=== PATIENT | male | born 1930 | race Caucasian/White ===

== ENCOUNTER → 2016-04-15 | Outpatient (CLI) | payer MEDICARE, OTHER ==
[~2016-04-15] MED LIST: ASPI32ECTA PO; ASPI81TA13 PO; CAPT125TA PO; CAPT50TA PO; CEFD300CAP PO; CIPROFLOXACIN 500 MG TAB As Ordered ONE; CLONI1TA PO; COLA100C PO; CORE3.12 PO; COUM1TAB17 PO; COUM2.5T11 PO; DOCU10CA PO; FLOM5CAP PO; HYDR-4267 PO; IMDU30TA PO; ISOS30TA4 PO; ISOVUE-300 61% 50ML VIAL (Q9967) As Ordered ONE; LABE10TAB PO; LANT50TA PO; LEVA250T PO; LIPI20TA PO; MAPA325T2 PO; MICA5TAB PO; MILKSUS PO; MIRA3350 PO; NITR4TASL SL; PANT40TA2 PO; PEG1POW PO; PERCOCET PO; PROS5TAB PO; RENV2TAB PO; SENN1TAB2 PO; SODIUM BICARBONATE 8.4% INJ 50MEQ 50 ML VIAL As Ordered ONE; no home meds
--- NOTE | 2016-04-15 16:19 | REPKIM ---
CLINICAL HISTORY: Patient with a history of high output renal failure has a left nephrostomy catheter due to hydronephrosis. Patient presents for routine catheter check and exchange for maintenance. PROCEDURE: Left nephrostomy catheter check and change INTERVENTIONALIST: Yeni Conti MD MEDICATIONS: Local Lidocaine, Cipro FLUORO TIME: 0.8 minutes CONTRAST: 8 mL Isovue 300 DEVICE USED: 10F Nephrostomy (Resolve) catheter Lot#[id number] Description of procedure: The risks, benefits, and alternatives of the procedure and associated intravenous sedation were discussed with the patient and informed written consent was obtained. The patient was brought to the interventional radiology suite where a timeout procedure was performed. The existing left indwelling catheter and the area surrounding the insertion site were prepped and draped with standard technique. Dilute contrast was injected through the existing nephrostomy catheter and a nephrostogram was performed. This showed the catheter is patent in a satisfactory course and position. A guidewire was advanced through the existing drainage catheter into the renal pelvis. The existing catheter was unlocked and removed over the guidewire. A new 10F nephrostomy catheter was then advanced over the guidewire. The guidewire was removed and the distal loop of the nephrostomy drainage catheter was formed and locked in the renal pelvis. Contrast was gently hand injected, confirming its tip in the renal pelvis. The drainage catheter exit site was covered with a sterile dressing. The nephrostomy drainage catheter was flushed and connected to a gravity drainage bag. The patient tolerated the procedure well with no immediate complications. This procedure was performed using fluoroscopy. Dr. Conti was present. IMPRESSION: Successful left nephrostomy check and change for maintenance. Plan: Routine catheter exchange in approximately 12 weeks or earlier if signs of tube dysfunction were to occur. cc: MD ANA Avila
== END | disposition home or self-care (01) ==
LOC: M IRPRO 12:46
DX: N13.30 Unspecified hydronephrosis (principal); N18.6 End stage renal disease
CPT/HCPCS: 50435; C1729; C1769; Q9967

== ENCOUNTER → 2016-04-26 | Outpatient (CLI) | payer MEDICARE, OTHER ==
[~2016-04-26] MED LIST changes: -CIPROFLOXACIN 500 MG TAB As Ordered ONE; -ISOVUE-300 61% 50ML VIAL (Q9967) As Ordered ONE; -SODIUM BICARBONATE 8.4% INJ 50MEQ 50 ML VIAL As Ordered ONE
[2016-04-26 18:28] LABS: INR 1.19
== END ==
LOC: M SMT 15:08
PROVIDERS: ATTEND Internal Medicine Nephrology
DX: Z51.81 Encounter for therapeutic drug level monitoring (principal); Z79.01 Long term (current) use of anticoagulants

== ENCOUNTER → 2016-07-03 | Outpatient (CLI) | payer MEDICARE, OTHER ==
[~2016-07-03] MED LIST changes: +CIPROFLOXACIN 500 MG TAB As Ordered ONE; -COLA100C PO; +COLA100C3 PO; +ISOVUE-300 61% 50ML VIAL (Q9967) As Ordered ONE; +LIDOCAINE 2% MDV 20 ML VIAL As Ordered ONE
--- NOTE | 2016-07-03 17:50 | REPKIM ---
CLINICAL HISTORY: Patient with high output renal failure has a left nephrostomy catheter due to hydronephrosis. Patient presents for routine catheter check and exchange for maintenance. PROCEDURE: Left nephrostomy catheter check and change INTERVENTIONALIST: Yeni Conti MD MEDICATIONS: Local Lidocaine, Cipro FLUORO TIME: 0.5 minutes CONTRAST: 10 mL Isovue 300 DEVICE USED: 10F Nephrostomy (Resolve) catheter Lot#[id number] Description of procedure: The risks, benefits, and alternatives of the procedure and associated intravenous sedation were discussed with the patient and informed written consent was obtained. The patient was brought to the interventional radiology suite where a timeout procedure was performed. The existing left indwelling catheter and the area surrounding the insertion site were prepped and draped with standard technique. Dilute contrast was injected through the existing nephrostomy catheter and a nephrostogram was performed. This showed the catheter is patent in a satisfactory course and position. A guidewire was advanced through the existing drainage catheter into the renal pelvis. The existing catheter was unlocked and removed over the guidewire. A new 10F nephrostomy catheter was then advanced over the guidewire. The guidewire was removed and the distal loop of the nephrostomy drainage catheter was formed and locked in the renal pelvis. Contrast was gently hand injected, confirming its tip in the renal pelvis. The drainage catheter exit site was covered with a sterile dressing. The nephrostomy drainage catheter was flushed and connected to a gravity drainage bag. The patient tolerated the procedure well with no immediate complications. This procedure was performed using fluoroscopy. Dr. Conti was present. IMPRESSION: Successful left nephrostomy check and change for maintenance. Plan: Routine catheter exchange in approximately 12 weeks or earlier if signs of tube dysfunction were to occur. cc: MD ANA Avila
== END | disposition home or self-care (01) ==
LOC: M IRPRO 12:33
DX: Z43.6 Encounter for attention to other artificial openings of urinary tract (principal); N13.30 Unspecified hydronephrosis; N18.6 End stage renal disease
CPT/HCPCS: 50435; C1729; C1769; Q9967

== ENCOUNTER → 2016-08-06 | Outpatient (CLI) | payer MEDICARE, OTHER ==
[~2016-08-06] MED LIST changes: -CIPROFLOXACIN 500 MG TAB As Ordered ONE; -ISOVUE-300 61% 50ML VIAL (Q9967) As Ordered ONE; -LIDOCAINE 2% MDV 20 ML VIAL As Ordered ONE
== END ==
LOC: M SMT 14:18
PROVIDERS: ATTEND Internal Medicine Nephrology
DX: J90 Pleural effusion, not elsewhere classified (principal); I50.32 Chronic diastolic (congestive) heart failure

== ENCOUNTER → 2016-10-16 | Outpatient (CLI) | payer MEDICARE, OTHER ==
[~2016-10-16] MED LIST changes: +ASPI325T24 PO; -ASPI32ECTA PO; -ASPI81TA13 PO; +ASPI81TA24 PO; +CIPROFLOXACIN 500 MG TAB As Ordered ONE; -COLA100C3 PO; +COLA100C5 PO; -COUM2.5T11 PO; +COUM2.5T17 PO; +HYDR-3911 PO; -HYDR-4267 PO; +ISOVUE-300 61% 50ML VIAL (Q9967) As Ordered ONE; +LEVA1TAB PO; -LEVA250T PO; +LIDOCAINE 2% MDV 20 ML VIAL As Ordered ONE
--- NOTE | 2016-10-16 17:09 | REP ---
The procedure was performed under the direct supervision of Dr. Chaudhari CLINICAL HISTORY: ESRD Left hydronephrosis PROCEDURE: Left Nephrostomy catheter exchange Medications: 250 mg Cipro P.O. EBL: Less than 1 ml FLUORO TIME: 1.1 minutesCONTRAST: 10 ml Isovue 300DEVICE USED: 10 F Nephrostomy (Resolve) catheter Lot# [id number] The risks and benefits of the procedure were explained to the patient and informed consent was obtained. The patient was brought into the interventional radiology suite. A time out procedure was performed. The patient was placed in the prone position. The existing indwelling catheter and the area surrounding the insertion site were prepped and draped in a sterile fashion. Contrast was injected through the existing left Nephrostomy catheter. Images demonstrate the catheter to have pulled back into the calyx. The existing catheter was cut and removed over the guide wire. A new 10 F Resolve catheter was advanced over the guide wire. The guidewire was removed and the distal loop of the nephrostomy drainage catheter was formed and locked in the renal pelvis. Contrast was injected, confirming satisfactory drainage catheter positioned. The drainage catheter exit site was covered with sterile dressing. The nephrostomy drainage catheter was flushed and connected to gravity drainage bag. The patient tolerated the procedure well and there were no immediate complications. This procedure was performed using fluoroscopy. Impression: Successful exchange of nephrostomy urinary diversion tube left As discussed above. Plan: Routine catheter exchange and approximately 8-10 weeks or earlier if signs of tube dysfunction were to occur. Reviewed by ANGIE Garrison 10/16/2016 04:21 PSigned by Bharathi Chaudhari MD 10/16/2016 05:01 P
== END ==
LOC: M RADPRO 12:35
PROVIDERS: ATTEND Radiology Diagnostic Radiology
DX: N13.30 Unspecified hydronephrosis (principal); C61 Malignant neoplasm of prostate; N18.6 End stage renal disease; Z93.6 Other artificial openings of urinary tract status; Z99.2 Dependence on renal dialysis; Z88.0 Allergy status to penicillin; Z79.01 Long term (current) use of anticoagulants; Z79.899 Other long term (current) drug therapy
CPT/HCPCS: 50435; 75984; C1729; C1769; Q9967

== ENCOUNTER → 2016-12-25 | Outpatient (CLI) | payer MEDICARE, OTHER ==
[~2016-12-25] MED LIST changes: -LIDOCAINE 2% MDV 20 ML VIAL As Ordered ONE
--- NOTE | 2016-12-27 13:25 | REP ---
The procedure was performed under the direct supervision of Dr. Chaudhari CLINICAL HISTORY: ESRD, HYDRONEPHROSIS PROCEDURE: Left nephrostomy catheter exchange Medications: Cipro 250 mg P.O. EBL: 0 FLUORO TIME: 0.8 minutesCONTRAST: 10 ml Isovue 300DEVICE USED: 10 F Nephrostomy (Resolve) catheter The risks and benefits of the procedure were explained to the patient and informed consent was obtained. The patient was brought into the interventional radiology suite. A time out procedure was performed. The patient was placed in the prone position. The existing indwelling catheter and the area surrounding the insertion site were prepped and draped in a sterile fashion. Contrast was injected through the existing left Nephrostomy catheter. Images demonstrate the catheter to be within the renal pelvis. The existing catheter was cut and removed over the guide wire. A new 10-[place] Resolve catheter was advanced over the guide wire. The guidewire was removed and the distal loop of the nephrostomy drainage catheter was formed and locked in the renal pelvis. Contrast was injected, confirming satisfactory drainage catheter position. The drainage catheter exit site was covered with sterile dressing. The nephrostomy drainage catheter was flushed and connected to gravity drainage bag. The patient tolerated the procedure well and there were no immediate complications. This procedure was performed using fluoroscopy. Impression: Successful exchange of nephrostomy urinary diversion tube left side As discussed above. Plan: Routine catheter exchange and approximately 10-12 weeks or earlier if signs of tube dysfunction were to occur. Reviewed by ANGIE Garrison 12/26/2016 05:44 PSigned by Bharathi Chaudhari MD 12/27/2016 01:16 P
== END ==
LOC: M RADPRO 12:45
PROVIDERS: ATTEND Radiology Diagnostic Radiology
DX: N18.6 End stage renal disease (principal); N13.30 Unspecified hydronephrosis; Z85.46 Personal history of malignant neoplasm of prostate; Z88.0 Allergy status to penicillin; Z99.2 Dependence on renal dialysis; Z79.899 Other long term (current) drug therapy; Z79.01 Long term (current) use of anticoagulants
CPT/HCPCS: 50435; C1729; C1769; Q9967

== ENCOUNTER → 2017-03-05 | Outpatient (CLI) | payer MEDICARE, OTHER ==
[~2017-03-05] MED LIST changes: -ASPI325T24 PO; -ASPI81TA24 PO; -CAPT125TA PO; -CAPT50TA PO; -CEFD300CAP PO; +CIPROFLOXACIN 500 MG TAB As Ordered; -CIPROFLOXACIN 500 MG TAB As Ordered ONE; -CLONI1TA PO; -COLA100C5 PO; -CORE3.12 PO; -COUM1TAB17 PO; -COUM2.5T17 PO; -DOCU10CA PO; -FLOM5CAP PO; -HYDR-3911 PO; -IMDU30TA PO; -ISOS30TA4 PO; +ISOVUE-300 61% 50ML VIAL (Q9967) As Ordered; -ISOVUE-300 61% 50ML VIAL (Q9967) As Ordered ONE; -LABE10TAB PO; -LANT50TA PO; -LEVA1TAB PO; +LIDOCAINE 2% MDV 20 ML VIAL As Ordered; -LIPI20TA PO; -MAPA325T2 PO; -MICA5TAB PO; -MILKSUS PO; -MIRA3350 PO; -NITR4TASL SL; -PANT40TA2 PO; -PEG1POW PO; -PERCOCET PO; -PROS5TAB PO; -RENV2TAB PO; -SENN1TAB2 PO; -no home meds
== END ==
LOC: M RADPRO 12:23
DX: N18.6 End stage renal disease (principal); N13.39 Other hydronephrosis
CPT/HCPCS: 50435

== ENCOUNTER 2017-05-21 14:50 | Inpatient (IN) | payer MEDICARE, OTHER ==
[~2017-05-21 14:50] MED LIST changes: +ALBUTEROL SULFATE 2.5 MG/0.5 ML INH NEB SOLN NEB; +BISACODYL 10 MG SUPP PR; +BISACODYL 5 MG TAB PO; -CIPROFLOXACIN 500 MG TAB As Ordered; -ISOVUE-300 61% 50ML VIAL (Q9967) As Ordered; -LIDOCAINE 2% MDV 20 ML VIAL As Ordered; +MIRALAX *UNIT DOSE* 17GM PACKET PO; +ONDANSETRON 4 MG ORAL DISINTEGRATING TAB (Q0162 PER 1MG) PO; +ONDANSETRON 4MG/2ML VIAL (J2405) IV
[2017-05-21] MEDS: IPRATROPIUM 0.5MG/ALBUTEROL 2.5MG INH SOL UD 3ML (DUONEB)(J7620) NEB ×2 (16:00→21:33)
[2017-05-21] MEDS: LACTULOSE 20 GM/30 ML SYRUP UD PO (16:23)
[2017-05-21] MEDS: NEPHRO-VIT TAB (NEPHROCAPS) PO (16:23)
[2017-05-21] MEDS: **hydrALAZINE** 50 MG TAB PO (16:24)
[2017-05-21] MEDS: (RENVELA) SEVELAMER **CARBONate** 800 MG TAB PO (17:35)
[2017-05-21] MEDS: METOPROLOL TART 12.5 MG PER 1/2 TAB PO ×2 (17:35→23:44)
[2017-05-21] MEDS: METOPROLOL TART 25 MG TABLET PO ×2 (17:35→23:44)
[2017-05-21] MEDS: WARFARIN SOD 5 MG TAB PO (17:36)
[2017-05-21] MEDS: BRIMONIDINE 0.15% OPHTH SOLN 5 ML OS (21:32)
[2017-05-21] MEDS: HEPARIN SOD (PORCINE) 5000 UNITS/ML VIAL SC (21:33)
[2017-05-21] MEDS: ISOSORBIDE MON. (IMDUR) 30 MG XR TAB PO (21:33)
[2017-05-21] MEDS: SENOKOT S TAB PO (21:34)
[2017-05-21] MEDS: cloNIDine 0.1 MG TAB PO (21:35)
[2017-05-21] MEDS: amLODIPine 5 MG TAB PO (21:35)
[2017-05-21] MEDS: FINASTERIDE 5 MG TAB PO (21:35)
[2017-05-21] MEDS: ACETAMINOPHEN TAB 650MG DOSE (2X325MG) PO (23:44)
[2017-05-21] MEDS: BENZONATATE 100 MG CAP PO (23:49)
[2017-05-22] MEDS: **hydrALAZINE** 50 MG TAB PO ×3 (04:10→22:27)
[2017-05-22] MEDS: LEVOTHYROXINE 50MCG TABLET (0.05MG) PO (06:06)
[2017-05-22] MEDS: METOPROLOL TART 25 MG TABLET PO ×3 (06:07→17:28)
[2017-05-22] MEDS: METOPROLOL TART 12.5 MG PER 1/2 TAB PO ×3 (06:07→17:27)
[2017-05-22] MEDS: LACTULOSE 20 GM/30 ML SYRUP UD PO ×2 (06:57→17:40)
[2017-05-22 07:25] LABS: INR 1.78; PROTHROMBIN TIME 21.3 SECONDS (12.4-14.5)
[2017-05-22] MEDS: (RENVELA) SEVELAMER **CARBONate** 800 MG TAB PO ×3 (07:49→17:28)
[2017-05-22] MEDS: IPRATROPIUM 0.5MG/ALBUTEROL 2.5MG INH SOL UD 3ML (DUONEB)(J7620) NEB ×4 (08:00→20:28)
[2017-05-22] MEDS: amLODIPine 5 MG TAB PO ×2 (09:07→20:28)
[2017-05-22] MEDS: ASPIRIN 81 MG CHEW TABLET PO (09:07)
[2017-05-22] MEDS: ISOSORBIDE MON. (IMDUR) 30 MG XR TAB PO ×2 (09:07→20:29)
[2017-05-22] MEDS: SENOKOT S TAB PO ×2 (09:07→20:28)
[2017-05-22] MEDS: predniSONE 20 MG TAB PO (09:08)
[2017-05-22] MEDS: PANTOPRAZOLE 40MG TAB (PROTONIX) PO (09:08)
[2017-05-22] MEDS: cloNIDine 0.1 MG TAB PO ×2 (09:08→20:29)
[2017-05-22] MEDS: NEPHRO-VIT TAB (NEPHROCAPS) PO (09:08)
[2017-05-22] MEDS: TAMSULOSIN 0.4 MG CAP PO (09:08)
[2017-05-22] MEDS: BRIMONIDINE 0.15% OPHTH SOLN 5 ML OS ×2 (09:09→20:27)
[2017-05-22] MEDS: HEPARIN SOD (PORCINE) 5000 UNITS/ML VIAL SC ×2 (09:09→20:28)
[2017-05-22] MEDS ORDERED: **hydrALAZINE** 50 MG TAB PO (09:15)
[2017-05-22] MEDS: BISACODYL 10 MG SUPP PR (17:29)
[2017-05-22] MEDS: WARFARIN SOD 5 MG TAB PO (17:40)
[2017-05-22] MEDS: FINASTERIDE 5 MG TAB PO (20:28)
[2017-05-22] MEDS: guaiFENesin SYRUP 200 MG/10 ML UDC PO (20:28)
[2017-05-23] MEDS: METOPROLOL TART 12.5 MG PER 1/2 TAB PO ×5 (00:10→23:26)
[2017-05-23] MEDS: METOPROLOL TART 25 MG TABLET PO ×5 (00:11→23:26)
[2017-05-23] MEDS: ACETAMINOPHEN TAB 650MG DOSE (2X325MG) PO ×2 (00:12→05:50)
[2017-05-23] MEDS: LEVOTHYROXINE 50MCG TABLET (0.05MG) PO (05:42)
[2017-05-23] MEDS: **hydrALAZINE** 50 MG TAB PO ×3 (05:43→21:20)
[2017-05-23] MEDS ORDERED: LACTULOSE 20 GM/30 ML SYRUP UD PO (07:00)
[2017-05-23 07:14] LABS: INR 1.93; PROTHROMBIN TIME 22.7 SECONDS (12.4-14.5)
[2017-05-23] MEDS: IPRATROPIUM 0.5MG/ALBUTEROL 2.5MG INH SOL UD 3ML (DUONEB)(J7620) NEB ×4 (08:00→19:52)
[2017-05-23] MEDS: NEPHRO-VIT TAB (NEPHROCAPS) PO (08:22)
[2017-05-23] MEDS: (RENVELA) SEVELAMER **CARBONate** 800 MG TAB PO ×3 (08:22→18:01)
[2017-05-23] MEDS: ISOSORBIDE MON. (IMDUR) 30 MG XR TAB PO ×2 (08:23→21:26)
[2017-05-23] MEDS: SENOKOT S TAB PO ×2 (08:23→21:20)
[2017-05-23] MEDS: cloNIDine 0.1 MG TAB PO ×2 (08:23→21:21)
[2017-05-23] MEDS: PANTOPRAZOLE 40MG TAB (PROTONIX) PO (08:23)
[2017-05-23] MEDS: amLODIPine 5 MG TAB PO ×2 (08:23→21:19)
[2017-05-23] MEDS: HEPARIN SOD (PORCINE) 5000 UNITS/ML VIAL SC ×2 (08:24→21:19)
[2017-05-23] MEDS: ASPIRIN 81 MG CHEW TABLET PO (08:24)
[2017-05-23] MEDS: TAMSULOSIN 0.4 MG CAP PO (08:24)
[2017-05-23] MEDS: predniSONE 20 MG TAB PO (08:24)
[2017-05-23] MEDS: BRIMONIDINE 0.15% OPHTH SOLN 5 ML OS ×2 (08:25→21:22)
[2017-05-23] MEDS: SODIUM CHLORIDE NASAL 0.65% SPRAY BTL (OCEAN) ×3 (12:09→21:22)
[2017-05-23] MEDS: FLUTICASONE PROP 0.05% NASAL SPRAY 16 GM (FLONASE) ×2 (12:10→21:22)
[2017-05-23 15:17] LABS: BASO % 0.1 % (0.0-1.0); EOS % 0.1 % (0.0-3.0); HEMATOCRIT 28.2 % (42.0-52.0); HEMOGLOBIN 9.4 g/dl (13.5-17.5); IMMATURE GRANULOCYTE % 0.8 % (0-3.0); LYMPH # 0.5 10^3/uL (1.5-4.5); LYMPH % 3.7 % (24.0-44.0); MEAN CORPUSCULAR HEMOGLOBIN 32.3 pg (27.0-33.0); MEAN CORPUSCULAR HGB CONC 33.3 g/dl (32.0-36.5); MEAN CORPUSCULAR VOLUME 96.9 fl (80.0-96.0); MONO # 0.4 10^3/uL (0.0-0.8); MONO % 2.8 % (0.0-5.0); NEUTROPHILS # 12.1 10^3/uL (1.8-7.7); NEUTROPHILS % 92.5 % (36.0-66.0); PLATELET COUNT, AUTOMATED 409 10^3/uL (150-450); RED BLOOD COUNT 2.91 10^6/uL (4.30-6.10)
[2017-05-23 15:44] LABS: ALBUMIN 2.6 GM/DL (3.2-5.2); ALBUMIN/GLOBULIN RATIO 0.84 (1.00-1.93); ALKALINE PHOSPHATASE 51 U/L (45-117); ALT/SGPT 26 U/L (12-78); ANION GAP 9 MEQ/L (8-16); AST/SGOT 21 U/L (7-37); BILIRUBIN,TOTAL 0.4 MG/DL (0.2-1.0); BLOOD UREA NITROGEN 59 MG/DL (7-18); CALCIUM LEVEL 9.1 MG/DL (8.8-10.2); CARBON DIOXIDE LEVEL 26 MEQ/L (21-32); CHLORIDE LEVEL 99 MEQ/L (98-107); CREATININE FOR GFR 4.52 MG/DL (0.70-1.30); GLOMERULAR FILTRATION RATE 13.3 (>35); GLUCOSE, FASTING 139 MG/DL (70-100); POTASSIUM SERUM 4.8 MEQ/L (3.5-5.1); SODIUM LEVEL 134 MEQ/L (136-145); TOTAL PROTEIN 5.7 GM/DL (6.4-8.2)
[2017-05-23] MEDS: WARFARIN SOD 5 MG TAB PO (18:01)
[2017-05-23] MEDS: guaiFENesin SYRUP 200 MG/10 ML UDC PO (21:18)
[2017-05-23] MEDS: FINASTERIDE 5 MG TAB PO (21:20)
[2017-05-24] MEDS: **hydrALAZINE** 50 MG TAB PO ×3 (05:30→22:01)
[2017-05-24] MEDS: METOPROLOL TART 25 MG TABLET PO ×3 (05:30→17:18)
[2017-05-24] MEDS: METOPROLOL TART 12.5 MG PER 1/2 TAB PO ×3 (05:31→17:19)
[2017-05-24] MEDS: LEVOTHYROXINE 50MCG TABLET (0.05MG) PO (05:31)
[2017-05-24] MEDS: LACTULOSE 20 GM/30 ML SYRUP UD PO (06:28)
[2017-05-24 07:05] LABS: INR 2.06; PROTHROMBIN TIME 23.9 SECONDS (12.4-14.5)
[2017-05-24] MEDS: IPRATROPIUM 0.5MG/ALBUTEROL 2.5MG INH SOL UD 3ML (DUONEB)(J7620) NEB ×3 (07:30→15:57)
[2017-05-24] MEDS: (RENVELA) SEVELAMER **CARBONate** 800 MG TAB PO ×3 (07:53→17:18)
[2017-05-24] MEDS: PANTOPRAZOLE 40MG TAB (PROTONIX) PO (07:54)
[2017-05-24] MEDS: ASPIRIN 81 MG CHEW TABLET PO (07:54)
[2017-05-24] MEDS: ACETAMINOPHEN TAB 650MG DOSE (2X325MG) PO ×2 (07:54→18:46)
[2017-05-24] MEDS: NEPHRO-VIT TAB (NEPHROCAPS) PO (07:54)
[2017-05-24] MEDS: cloNIDine 0.1 MG TAB PO ×2 (07:55→20:39)
[2017-05-24] MEDS: ISOSORBIDE MON. (IMDUR) 30 MG XR TAB PO ×2 (07:55→20:38)
[2017-05-24] MEDS: TAMSULOSIN 0.4 MG CAP PO (07:55)
[2017-05-24] MEDS: SENOKOT S TAB PO ×2 (07:56→20:39)
[2017-05-24] MEDS: amLODIPine 5 MG TAB PO ×2 (07:56→20:39)
[2017-05-24] MEDS: predniSONE 20 MG TAB PO (07:56)
[2017-05-24] MEDS: BRIMONIDINE 0.15% OPHTH SOLN 5 ML OS ×2 (07:57→20:40)
[2017-05-24] MEDS: FLUTICASONE PROP 0.05% NASAL SPRAY 16 GM (FLONASE) ×2 (07:57→20:40)
[2017-05-24] MEDS: HEPARIN SOD (PORCINE) 5000 UNITS/ML VIAL SC ×2 (07:57→20:40)
[2017-05-24] MEDS: SODIUM CHLORIDE NASAL 0.65% SPRAY BTL (OCEAN) ×3 (07:57→20:40)
[2017-05-24] MEDS: HEPARIN 1,000 UNITS/ML 10ML VIAL (FOR RADIOLOGY& DIALYSIS ONLY) IV (13:15)
[2017-05-24] MEDS: WARFARIN SOD 5 MG TAB PO (16:29)
[2017-05-24] MEDS: guaiFENesin SYRUP 200 MG/10 ML UDC PO (20:37)
[2017-05-24] MEDS: FINASTERIDE 5 MG TAB PO (20:39)
[2017-05-25] MEDS: METOPROLOL TART 12.5 MG PER 1/2 TAB PO ×5 (00:06→23:29)
[2017-05-25] MEDS: METOPROLOL TART 25 MG TABLET PO ×5 (00:07→23:30)
[2017-05-25] MEDS: ACETAMINOPHEN TAB 650MG DOSE (2X325MG) PO ×2 (03:17→20:13)
[2017-05-25] MEDS: LEVOTHYROXINE 50MCG TABLET (0.05MG) PO (06:23)
[2017-05-25] MEDS: **hydrALAZINE** 50 MG TAB PO ×3 (06:26→22:23)
[2017-05-25 06:30] LABS: INR 2.28
[2017-05-25] MEDS: LACTULOSE 20 GM/30 ML SYRUP UD PO (07:00)
[2017-05-25] MEDS: IPRATROPIUM 0.5MG/ALBUTEROL 2.5MG INH SOL UD 3ML (DUONEB)(J7620) NEB ×4 (07:30→20:21)
[2017-05-25] MEDS: TAMSULOSIN 0.4 MG CAP PO (09:11)
[2017-05-25] MEDS: (RENVELA) SEVELAMER **CARBONate** 800 MG TAB PO ×3 (09:12→17:22)
[2017-05-25] MEDS: predniSONE 20 MG TAB PO (09:12)
[2017-05-25] MEDS: ISOSORBIDE MON. (IMDUR) 30 MG XR TAB PO ×2 (09:13→20:12)
[2017-05-25] MEDS: ASPIRIN 81 MG CHEW TABLET PO (09:13)
[2017-05-25] MEDS: SENOKOT S TAB PO ×2 (09:13→20:12)
[2017-05-25] MEDS: amLODIPine 5 MG TAB PO ×2 (09:14→20:12)
[2017-05-25] MEDS: NEPHRO-VIT TAB (NEPHROCAPS) PO (09:14)
[2017-05-25] MEDS: cloNIDine 0.1 MG TAB PO ×2 (09:14→20:12)
[2017-05-25] MEDS: HEPARIN SOD (PORCINE) 5000 UNITS/ML VIAL SC ×2 (09:14→20:11)
[2017-05-25] MEDS: PANTOPRAZOLE 40MG TAB (PROTONIX) PO (09:14)
[2017-05-25] MEDS: FLUTICASONE PROP 0.05% NASAL SPRAY 16 GM (FLONASE) ×2 (09:15→20:13)
[2017-05-25] MEDS: SODIUM CHLORIDE NASAL 0.65% SPRAY BTL (OCEAN) ×3 (09:15→20:11)
[2017-05-25] MEDS: BRIMONIDINE 0.15% OPHTH SOLN 5 ML OS ×2 (09:15→20:11)
[2017-05-25] MEDS: WARFARIN SOD 5 MG TAB PO (17:21)
[2017-05-25] MEDS: guaiFENesin SYRUP 200 MG/10 ML UDC PO (20:11)
[2017-05-25] MEDS: FINASTERIDE 5 MG TAB PO (20:12)
[2017-05-26] MEDS: LEVOTHYROXINE 50MCG TABLET (0.05MG) PO (06:10)
[2017-05-26] MEDS: METOPROLOL TART 25 MG TABLET PO ×4 (06:10→23:05)
[2017-05-26] MEDS: METOPROLOL TART 12.5 MG PER 1/2 TAB PO ×4 (06:10→23:04)
[2017-05-26] MEDS: LACTULOSE 20 GM/30 ML SYRUP UD PO (06:13)
[2017-05-26] MEDS: **hydrALAZINE** 50 MG TAB PO ×3 (06:13→20:27)
[2017-05-26 06:53] LABS: HEMATOCRIT 26.5 % (42.0-52.0); MEAN CORPUSCULAR HEMOGLOBIN 32.6 pg (27.0-33.0); PLATELET COUNT, AUTOMATED 431 10^3/uL (150-450); RED BLOOD COUNT 2.76 10^6/uL (4.30-6.10); RED CELL DISTRIBUTION WIDTH 13.7 % (11.5-14.5); WHITE BLOOD COUNT 10.1 10^3/uL (4.0-10.0)
[2017-05-26 07:09] LABS: INR 2.26; PROTHROMBIN TIME 25.8 SECONDS (12.4-14.5)
[2017-05-26 07:14] LABS: ANION GAP 8 MEQ/L (8-16); BLOOD UREA NITROGEN 63 MG/DL (7-18); CALCIUM LEVEL 9.1 MG/DL (8.8-10.2); CARBON DIOXIDE LEVEL 27 MEQ/L (21-32); CHLORIDE LEVEL 95 MEQ/L (98-107); CREATININE FOR GFR 4.89 MG/DL (0.70-1.30); GLOMERULAR FILTRATION RATE 12.1 (>35); GLUCOSE, FASTING 96 MG/DL (70-100); POTASSIUM SERUM 4.9 MEQ/L (3.5-5.1); SODIUM LEVEL 130 MEQ/L (136-145)
[2017-05-26] MEDS: IPRATROPIUM 0.5MG/ALBUTEROL 2.5MG INH SOL UD 3ML (DUONEB)(J7620) NEB ×4 (08:00→20:34)
[2017-05-26] MEDS: HEPARIN SOD (PORCINE) 5000 UNITS/ML VIAL SC ×2 (08:11→20:26)
[2017-05-26] MEDS: cloNIDine 0.1 MG TAB PO ×2 (08:12→20:29)
[2017-05-26] MEDS: predniSONE 20 MG TAB PO (08:12)
[2017-05-26] MEDS: TAMSULOSIN 0.4 MG CAP PO (08:12)
[2017-05-26] MEDS: amLODIPine 5 MG TAB PO ×2 (08:12→20:28)
[2017-05-26] MEDS: SENOKOT S TAB PO ×2 (08:12→20:27)
[2017-05-26] MEDS: ASPIRIN 81 MG CHEW TABLET PO (08:12)
[2017-05-26] MEDS: PANTOPRAZOLE 40MG TAB (PROTONIX) PO (08:13)
[2017-05-26] MEDS: NEPHRO-VIT TAB (NEPHROCAPS) PO (08:13)
[2017-05-26] MEDS: (RENVELA) SEVELAMER **CARBONate** 800 MG TAB PO ×3 (08:13→18:44)
[2017-05-26] MEDS: FLUTICASONE PROP 0.05% NASAL SPRAY 16 GM (FLONASE) ×2 (08:13→20:28)
[2017-05-26] MEDS: BRIMONIDINE 0.15% OPHTH SOLN 5 ML OS ×2 (08:14→20:28)
[2017-05-26] MEDS: SODIUM CHLORIDE NASAL 0.65% SPRAY BTL (OCEAN) ×3 (08:14→20:28)
[2017-05-26] MEDS: ISOSORBIDE MON. (IMDUR) 30 MG XR TAB PO ×2 (10:38→20:27)
[2017-05-26] MEDS: WARFARIN SOD 5 MG TAB PO (18:44)
[2017-05-26] MEDS: guaiFENesin SYRUP 200 MG/10 ML UDC PO (20:26)
[2017-05-26] MEDS: ACETAMINOPHEN TAB 650MG DOSE (2X325MG) PO (20:28)
[2017-05-26] MEDS: FINASTERIDE 5 MG TAB PO (20:28)
[2017-05-26] MEDS ORDERED: DARBEPOETIN 100 MCG/0.5 ML *DIALYSIS* SYRINGE (J0882) IV (20:30)
[2017-05-27] MEDS: METOPROLOL TART 25 MG TABLET PO ×4 (05:32→23:27)
[2017-05-27] MEDS: LEVOTHYROXINE 50MCG TABLET (0.05MG) PO (05:32)
[2017-05-27] MEDS: METOPROLOL TART 12.5 MG PER 1/2 TAB PO ×4 (05:32→23:27)
[2017-05-27] MEDS: **hydrALAZINE** 50 MG TAB PO ×3 (05:32→20:25)
[2017-05-27] MEDS: LACTULOSE 20 GM/30 ML SYRUP UD PO (06:11)
[2017-05-27] MEDS: IPRATROPIUM 0.5MG/ALBUTEROL 2.5MG INH SOL UD 3ML (DUONEB)(J7620) NEB ×4 (07:51→19:56)
[2017-05-27] MEDS: predniSONE 20 MG TAB PO (08:10)
[2017-05-27] MEDS: HEPARIN SOD (PORCINE) 5000 UNITS/ML VIAL SC ×2 (08:10→20:24)
[2017-05-27] MEDS: NEPHRO-VIT TAB (NEPHROCAPS) PO (08:10)
[2017-05-27] MEDS: TAMSULOSIN 0.4 MG CAP PO (08:11)
[2017-05-27] MEDS: ISOSORBIDE MON. (IMDUR) 30 MG XR TAB PO ×2 (08:11→20:24)
[2017-05-27] MEDS: PANTOPRAZOLE 40MG TAB (PROTONIX) PO (08:11)
[2017-05-27] MEDS: SENOKOT S TAB PO ×2 (08:11→20:24)
[2017-05-27] MEDS: amLODIPine 5 MG TAB PO ×2 (08:12→20:25)
[2017-05-27] MEDS: cloNIDine 0.1 MG TAB PO ×2 (08:12→20:25)
[2017-05-27] MEDS: BRIMONIDINE 0.15% OPHTH SOLN 5 ML OS ×2 (08:13→20:26)
[2017-05-27] MEDS: FLUTICASONE PROP 0.05% NASAL SPRAY 16 GM (FLONASE) ×2 (08:13→20:26)
[2017-05-27] MEDS: SODIUM CHLORIDE NASAL 0.65% SPRAY BTL (OCEAN) ×3 (08:13→20:26)
[2017-05-27] MEDS: ASPIRIN 81 MG CHEW TABLET PO (08:13)
[2017-05-27] MEDS: (RENVELA) SEVELAMER **CARBONate** 800 MG TAB PO ×3 (08:13→17:47)
[2017-05-27] MEDS: HEPARIN 1,000 UNITS/ML 10ML VIAL (FOR RADIOLOGY& DIALYSIS ONLY) IV (14:00)
[2017-05-27] MEDS: HEPARIN 1,000 UNITS/ML 10ML VIAL (FOR RADIOLOGY& DIALYSIS ONLY) XX (14:00)
[2017-05-27 16:24] LABS: APPEARANCE, URINE MANUAL TURBID (CLEAR); COLOR, URINE MANUAL DK YELLOW (YELLOW)
[2017-05-27 16:25] LABS: BILIRUBIN, URINE MANUAL NEGATIVE (NEGATIVE); BLOOD URINE MANUAL POSITIVE (NEGATIVE); GLUCOSE, URINE (UA) MANUAL NEGATIVE (NEGATIVE); KETONE, URINE MANUAL NEGATIVE (NEGATIVE); LEUKOCYTE ESTERASE, URINE MAN POSITIVE (NEGATIVE); NITRITE, URINE MANUAL NEGATIVE (NEGATIVE); PROTEIN, URINE MANUAL 3+ mg/dL (NEGATIVE); UROBILINOGEN, URINE MANUAL NORMAL (NORMAL)
[2017-05-27 16:26] LABS: MICROSCOPIC INDICATED? MAN YES (NO)
[2017-05-27 16:27] LABS: SQUAMOUS EPITHELIAL CELL URINE NONE SEEN /hpf (SMALL AMT); WBC, URINE TNTC /hpf (0-3)
[2017-05-27 16:28] LABS: BACTERIA, URINE LARGE AMOUNT; HYALINE CAST, URINE NONE SEEN /lpf (0-1); MICROSCOPIC EXAM PERFORMED
[2017-05-27] MEDS: WARFARIN SOD 5 MG TAB PO (17:47)
[2017-05-27] MEDS: guaiFENesin SYRUP 200 MG/10 ML UDC PO (20:24)
[2017-05-27] MEDS: FINASTERIDE 5 MG TAB PO (20:25)
[2017-05-27] MEDS: ACETAMINOPHEN TAB 650MG DOSE (2X325MG) PO (20:26)
[2017-05-28] MEDS: LACTULOSE 20 GM/30 ML SYRUP UD PO ×2 (05:03→17:05)
[2017-05-28] MEDS: **hydrALAZINE** 50 MG TAB PO ×3 (06:08→20:45)
[2017-05-28] MEDS: LEVOTHYROXINE 50MCG TABLET (0.05MG) PO (06:08)
[2017-05-28] MEDS: METOPROLOL TART 12.5 MG PER 1/2 TAB PO ×4 (06:08→23:06)
[2017-05-28] MEDS: METOPROLOL TART 25 MG TABLET PO ×4 (06:09→23:06)
[2017-05-28 07:21] LABS: PROTHROMBIN TIME 30.7 SECONDS (12.4-14.5)
[2017-05-28] MEDS: HEPARIN SOD (PORCINE) 5000 UNITS/ML VIAL SC ×2 (08:23→20:44)
[2017-05-28] MEDS: SENOKOT S TAB PO ×2 (08:23→20:45)
[2017-05-28] MEDS: ISOSORBIDE MON. (IMDUR) 30 MG XR TAB PO ×2 (08:23→20:45)
[2017-05-28] MEDS: TAMSULOSIN 0.4 MG CAP PO (08:23)
[2017-05-28] MEDS: (RENVELA) SEVELAMER **CARBONate** 800 MG TAB PO ×3 (08:23→17:05)
[2017-05-28] MEDS: ASPIRIN 81 MG CHEW TABLET PO (08:23)
[2017-05-28] MEDS: PANTOPRAZOLE 40MG TAB (PROTONIX) PO (08:24)
[2017-05-28] MEDS: predniSONE 20 MG TAB PO (08:24)
[2017-05-28] MEDS: NEPHRO-VIT TAB (NEPHROCAPS) PO (08:24)
[2017-05-28] MEDS: cloNIDine 0.1 MG TAB PO ×2 (08:24→20:45)
[2017-05-28] MEDS: amLODIPine 5 MG TAB PO ×2 (08:24→20:46)
[2017-05-28] MEDS: SODIUM CHLORIDE NASAL 0.65% SPRAY BTL (OCEAN) ×3 (08:25→20:43)
[2017-05-28] MEDS: BRIMONIDINE 0.15% OPHTH SOLN 5 ML OS ×2 (08:25→20:43)
[2017-05-28] MEDS: FLUTICASONE PROP 0.05% NASAL SPRAY 16 GM (FLONASE) ×2 (08:25→20:43)
[2017-05-28] MEDS: IPRATROPIUM 0.5MG/ALBUTEROL 2.5MG INH SOL UD 3ML (DUONEB)(J7620) NEB ×4 (09:00→20:00)
[2017-05-28] MEDS: BISACODYL 5 MG TAB PO (09:33)
[2017-05-28] MEDS: MIRALAX *UNIT DOSE* 17GM PACKET PO (09:33)
[2017-05-28] MEDS ORDERED: ISOVUE-300 61% 50ML VIAL (Q9967) As Ordered (14:18)
[2017-05-28] MEDS ORDERED: CIPROFLOXACIN 500 MG TAB As Ordered (14:18)
[2017-05-28] MEDS: WARFARIN SOD 5 MG TAB PO (17:05)
[2017-05-28] MEDS: guaiFENesin SYRUP 200 MG/10 ML UDC PO (20:43)
[2017-05-28] MEDS: ACETAMINOPHEN TAB 650MG DOSE (2X325MG) PO (20:44)
[2017-05-28] MEDS: FINASTERIDE 5 MG TAB PO (20:46)
[2017-05-29] MEDS: METOPROLOL TART 12.5 MG PER 1/2 TAB PO ×4 (06:08→23:45)
[2017-05-29] MEDS: LEVOTHYROXINE 50MCG TABLET (0.05MG) PO (06:08)
[2017-05-29] MEDS: **hydrALAZINE** 50 MG TAB PO ×3 (06:08→20:48)
[2017-05-29] MEDS: METOPROLOL TART 25 MG TABLET PO ×4 (06:09→23:45)
[2017-05-29] MEDS: LACTULOSE 20 GM/30 ML SYRUP UD PO (06:10)
[2017-05-29] MEDS: IPRATROPIUM 0.5MG/ALBUTEROL 2.5MG INH SOL UD 3ML (DUONEB)(J7620) NEB ×4 (07:36→20:29)
[2017-05-29 07:43] LABS: INR 2.92; PROTHROMBIN TIME 31.8 SECONDS (12.4-14.5)
[2017-05-29] MEDS: ASPIRIN 81 MG CHEW TABLET PO (08:47)
[2017-05-29] MEDS: (RENVELA) SEVELAMER **CARBONate** 800 MG TAB PO ×3 (08:47→18:42)
[2017-05-29] MEDS: cloNIDine 0.1 MG TAB PO ×2 (08:49→20:46)
[2017-05-29] MEDS: SENOKOT S TAB PO ×2 (08:49→20:48)
[2017-05-29] MEDS: PANTOPRAZOLE 40MG TAB (PROTONIX) PO (08:49)
[2017-05-29] MEDS: TAMSULOSIN 0.4 MG CAP PO (08:49)
[2017-05-29] MEDS: NEPHRO-VIT TAB (NEPHROCAPS) PO (08:49)
[2017-05-29] MEDS: predniSONE 20 MG TAB PO (08:49)
[2017-05-29] MEDS: amLODIPine 5 MG TAB PO ×2 (08:49→20:47)
[2017-05-29] MEDS: ISOSORBIDE MON. (IMDUR) 30 MG XR TAB PO ×2 (08:50→20:47)
[2017-05-29] MEDS: MIRALAX *UNIT DOSE* 17GM PACKET PO (08:50)
[2017-05-29] MEDS: HEPARIN SOD (PORCINE) 5000 UNITS/ML VIAL SC ×2 (08:50→20:46)
[2017-05-29] MEDS: BRIMONIDINE 0.15% OPHTH SOLN 5 ML OS ×2 (08:51→20:48)
[2017-05-29] MEDS: SODIUM CHLORIDE NASAL 0.65% SPRAY BTL (OCEAN) ×3 (08:51→20:48)
[2017-05-29] MEDS: FLUTICASONE PROP 0.05% NASAL SPRAY 16 GM (FLONASE) ×2 (08:51→20:48)
[2017-05-29] MEDS: HEPARIN 1,000 UNITS/ML 10ML VIAL (FOR RADIOLOGY& DIALYSIS ONLY) IV (14:00)
[2017-05-29] MEDS: WARFARIN SOD 5 MG TAB PO (18:59)
[2017-05-29] MEDS: guaiFENesin SYRUP 200 MG/10 ML UDC PO (20:46)
[2017-05-29] MEDS: FINASTERIDE 5 MG TAB PO (20:47)
[2017-05-29] MEDS: ACETAMINOPHEN TAB 650MG DOSE (2X325MG) PO (20:47)
[2017-05-30] MEDS: LACTULOSE 20 GM/30 ML SYRUP UD PO (06:21)
[2017-05-30] MEDS: METOPROLOL TART 25 MG TABLET PO ×3 (06:21→17:11)
[2017-05-30] MEDS: LEVOTHYROXINE 50MCG TABLET (0.05MG) PO (06:21)
[2017-05-30] MEDS: **hydrALAZINE** 50 MG TAB PO ×3 (06:21→22:10)
[2017-05-30] MEDS: METOPROLOL TART 12.5 MG PER 1/2 TAB PO ×3 (06:21→17:12)
[2017-05-30 07:11] LABS: HEMATOCRIT 25.4 % (42.0-52.0); HEMOGLOBIN 8.6 g/dl (13.5-17.5); MEAN CORPUSCULAR HEMOGLOBIN 32.3 pg (27.0-33.0); MEAN CORPUSCULAR HGB CONC 33.9 g/dl (32.0-36.5); MEAN CORPUSCULAR VOLUME 95.5 fl (80.0-96.0); PLATELET COUNT, AUTOMATED 377 10^3/uL (150-450); RED BLOOD COUNT 2.66 10^6/uL (4.30-6.10); RED CELL DISTRIBUTION WIDTH 13.9 % (11.5-14.5); WHITE BLOOD COUNT 6.4 10^3/uL (4.0-10.0)
[2017-05-30 07:19] LABS: INR 2.99; PROTHROMBIN TIME 32.4 SECONDS (12.4-14.5)
[2017-05-30 07:33] LABS: ALBUMIN 2.5 GM/DL (3.2-5.2); ANION GAP 8 MEQ/L (8-16); BLOOD UREA NITROGEN 33 MG/DL (7-18); CALCIUM LEVEL 8.7 MG/DL (8.8-10.2); CARBON DIOXIDE LEVEL 27 MEQ/L (21-32); CHLORIDE LEVEL 99 MEQ/L (98-107); CREATININE FOR GFR 4.25 MG/DL (0.70-1.30); GLOMERULAR FILTRATION RATE 14.2 (>35); GLUCOSE, FASTING 121 MG/DL (70-100); PHOSPHORUS LEVEL 2.4 MG/DL (2.5-4.9); POTASSIUM SERUM 4.2 MEQ/L (3.5-5.1); SODIUM LEVEL 134 MEQ/L (136-145)
[2017-05-30] MEDS: IPRATROPIUM 0.5MG/ALBUTEROL 2.5MG INH SOL UD 3ML (DUONEB)(J7620) NEB ×4 (08:55→19:34)
[2017-05-30] MEDS: SENOKOT S TAB PO ×2 (09:00→20:33)
[2017-05-30] MEDS: MIRALAX *UNIT DOSE* 17GM PACKET PO (09:00)
[2017-05-30] MEDS: predniSONE 20 MG TAB PO (09:01)
[2017-05-30] MEDS: TAMSULOSIN 0.4 MG CAP PO (09:01)
[2017-05-30] MEDS: PANTOPRAZOLE 40MG TAB (PROTONIX) PO (09:01)
[2017-05-30] MEDS: (RENVELA) SEVELAMER **CARBONate** 800 MG TAB PO ×3 (09:01→17:11)
[2017-05-30] MEDS: NEPHRO-VIT TAB (NEPHROCAPS) PO (09:01)
[2017-05-30] MEDS: ASPIRIN 81 MG CHEW TABLET PO (09:02)
[2017-05-30] MEDS: amLODIPine 5 MG TAB PO ×2 (09:02→20:33)
[2017-05-30] MEDS: cloNIDine 0.1 MG TAB PO ×2 (09:02→20:33)
[2017-05-30] MEDS: ISOSORBIDE MON. (IMDUR) 30 MG XR TAB PO ×2 (09:02→20:32)
[2017-05-30] MEDS: FLUTICASONE PROP 0.05% NASAL SPRAY 16 GM (FLONASE) ×2 (09:03→20:34)
[2017-05-30] MEDS: SODIUM CHLORIDE NASAL 0.65% SPRAY BTL (OCEAN) ×3 (09:03→20:34)
[2017-05-30] MEDS: BRIMONIDINE 0.15% OPHTH SOLN 5 ML OS ×2 (09:03→20:34)
[2017-05-30] MEDS: HEPARIN SOD (PORCINE) 5000 UNITS/ML VIAL SC (09:03)
[2017-05-30] MEDS: HEPARIN 1,000 UNITS/ML 10ML VIAL (FOR RADIOLOGY& DIALYSIS ONLY) IV (09:30)
[2017-05-30] MEDS: HEPARIN 1,000 UNITS/ML 10ML VIAL (FOR RADIOLOGY& DIALYSIS ONLY) XX (09:30)
[2017-05-30] MEDS: WARFARIN SOD 4 MG TAB PO (17:10)
[2017-05-30] MEDS: SIMETHICONE 80 MG CHEW TAB PO (17:12)
[2017-05-30] MEDS: guaiFENesin SYRUP 200 MG/10 ML UDC PO (20:31)
[2017-05-30] MEDS: FINASTERIDE 5 MG TAB PO (20:32)
[2017-05-30] MEDS: ACETAMINOPHEN TAB 650MG DOSE (2X325MG) PO (20:34)
[2017-05-31] MEDS: METOPROLOL TART 12.5 MG PER 1/2 TAB PO ×3 (00:38→12:18)
[2017-05-31] MEDS: METOPROLOL TART 25 MG TABLET PO ×3 (00:39→12:18)
[2017-05-31] MEDS: LEVOTHYROXINE 50MCG TABLET (0.05MG) PO (06:23)
[2017-05-31] MEDS: LACTULOSE 20 GM/30 ML SYRUP UD PO (06:23)
[2017-05-31] MEDS: **hydrALAZINE** 50 MG TAB PO ×2 (06:27→14:47)
[2017-05-31] MEDS: IPRATROPIUM 0.5MG/ALBUTEROL 2.5MG INH SOL UD 3ML (DUONEB)(J7620) NEB ×2 (07:46→11:27)
[2017-05-31] MEDS: (RENVELA) SEVELAMER **CARBONate** 800 MG TAB PO ×2 (08:24→12:19)
[2017-05-31] MEDS: PANTOPRAZOLE 40MG TAB (PROTONIX) PO (08:24)
[2017-05-31] MEDS: ASPIRIN 81 MG CHEW TABLET PO (08:24)
[2017-05-31] MEDS: TAMSULOSIN 0.4 MG CAP PO (08:25)
[2017-05-31] MEDS: NEPHRO-VIT TAB (NEPHROCAPS) PO (08:25)
[2017-05-31] MEDS: amLODIPine 5 MG TAB PO (08:25)
[2017-05-31] MEDS: predniSONE 10 MG TAB PO (08:25)
[2017-05-31] MEDS: SENOKOT S TAB PO (08:25)
[2017-05-31] MEDS: cloNIDine 0.1 MG TAB PO (08:26)
[2017-05-31] MEDS: FLUTICASONE PROP 0.05% NASAL SPRAY 16 GM (FLONASE) (08:26)
[2017-05-31] MEDS: ISOSORBIDE MON. (IMDUR) 30 MG XR TAB PO (08:26)
[2017-05-31] MEDS: BRIMONIDINE 0.15% OPHTH SOLN 5 ML OS (08:26)
[2017-05-31] MEDS: MIRALAX *UNIT DOSE* 17GM PACKET PO (08:26)
[2017-05-31] MEDS: SODIUM CHLORIDE NASAL 0.65% SPRAY BTL (OCEAN) ×2 (08:26→16:54)
[2017-05-31] MEDS: LevoFLOXacin 250 MG TABLET PO (12:18)
== END 2017-05-31 16:45 | disposition home health service (06) | DRG 939 ==
LOC: M PM&R 14:50
PROC: 0T9140Z Drainage of Left Kidney with Drainage Device, Percutaneous Endoscopic Approach (ICD-10-PCS; principal; 2017-05-28)
DX: R53.81 Other malaise (principal); N18.6 End stage renal disease; I50.22 Chronic systolic (congestive) heart failure; I13.2 Hypertensive heart and chronic kidney disease with heart failure and with stage 5 chronic kidney disease, or end stage renal disease; J44.0 Chronic obstructive pulmonary disease with (acute) lower respiratory infection; E87.1 Hypo-osmolality and hyponatremia; N39.0 Urinary tract infection, site not specified; J11.1 Influenza due to unidentified influenza virus with other respiratory manifestations; N40.0 Benign prostatic hyperplasia without lower urinary tract symptoms; K21.9 Gastro-esophageal reflux disease without esophagitis; K59.00 Constipation, unspecified; E03.9 Hypothyroidism, unspecified; Z79.899 Other long term (current) drug therapy; Z88.0 Allergy status to penicillin; I25.10 Atherosclerotic heart disease of native coronary artery without angina pectoris; F32.9 Major depressive disorder, single episode, unspecified; Z93.6 Other artificial openings of urinary tract status; I69.391 Dysphagia following cerebral infarction; Z86.73 Personal history of transient ischemic attack (TIA), and cerebral infarction without residual deficits; D63.1 Anemia in chronic kidney disease; Z96.642 Presence of left artificial hip joint; Z86.718 Personal history of other venous thrombosis and embolism; N30.20 Other chronic cystitis without hematuria; B96.29 Other Escherichia coli [E. coli] as the cause of diseases classified elsewhere

== ENCOUNTER 2017-06-20 14:50 | Inpatient (IN) | payer MEDICARE, OTHER ==
[2017-06-20 14:57] LABS: BASO % 0.2 % (0.0-1.0); EOS # 0.1 10^3/uL (0.0-0.50); EOS % 1.3 % (0.0-3.0); HEMATOCRIT 28.2 % (42.0-52.0); HEMOGLOBIN 9.3 g/dl (13.5-17.5); IMMATURE GRANULOCYTE % 0.3 % (0-3.0); LYMPH # 1.4 10^3/uL (1.5-4.5); LYMPH % 13.6 % (24.0-44.0); MEAN CORPUSCULAR HEMOGLOBIN 33.8 pg (27.0-33.0); MEAN CORPUSCULAR VOLUME 102.5 fl (80.0-96.0); MONO # 1.6 10^3/uL (0.0-0.8); MONO % 16.4 % (0.0-5.0); NEUTROPHILS # 6.8 10^3/uL (1.8-7.7); NEUTROPHILS % 68.2 % (36.0-66.0); PLATELET COUNT, AUTOMATED 274 10^3/uL (150-450); RED BLOOD COUNT 2.75 10^6/uL (4.30-6.10); RED CELL DISTRIBUTION WIDTH 15.7 % (11.5-14.5)
[2017-06-20 15:03] LABS: LACTIC ACID SEPSIS PROTOCOL 0.9 MMOL/L (0.4-2.0)
[2017-06-20 15:04] LABS: ALBUMIN 2.5 GM/DL (3.2-5.2); ALBUMIN/GLOBULIN RATIO 0.76 (1.00-1.93); ALKALINE PHOSPHATASE 43 U/L (45-117); ALT/SGPT 13 U/L (12-78); ANION GAP 8 MEQ/L (8-16); AST/SGOT 12 U/L (7-37); BILIRUBIN,DIRECT 0.1 MG/DL (0.0-0.2); BILIRUBIN,TOTAL 0.4 MG/DL (0.2-1.0); BLOOD UREA NITROGEN 55 MG/DL (7-18); CALCIUM LEVEL 9.1 MG/DL (8.8-10.2); CARBON DIOXIDE LEVEL 30 MEQ/L (21-32); CHLORIDE LEVEL 97 MEQ/L (98-107); CPK CREATINE PHOSPHOKINASE 40 U/L (39-308); CREATININE FOR GFR 4.52 MG/DL (0.70-1.30); GLOMERULAR FILTRATION RATE 13.3 (>35); GLUCOSE, FASTING 122 MG/DL (70-100); POTASSIUM SERUM 4.1 MEQ/L (3.5-5.1); SODIUM LEVEL 135 MEQ/L (136-145); THYROXINE (T4) 7.5 UG/DL (4.5-12.0); TOTAL PROTEIN 5.8 GM/DL (6.4-8.2); TROPONIN I 0.08 NG/ML (< 0.10)
[2017-06-20 15:12] LABS: ABG BASE EXCESS 3.9 (-2.0-2.0); ABG HCO3 27.7 MEQ/L (22.0-26.0); ABG O2 SATURATION 96.2 % (95.0-99.0); ABG PARTIAL PRESSURE CO2 38.4 mmHg (35.0-45.0); ABG PARTIAL PRESSURE O2 91.7 mmHg (75.0-100.0); ABG TOTAL CO2 28.9 MEQ/L (23.0-31.0); ABG pH (ARTERIAL) 7.476 UNITS (7.350-7.450)
[2017-06-20 15:17] LABS: CK-MB VALUE MASS < 1.0 NG/ML (<3.6); NT-PRO BNP 128270 PG/ML (<450)
[2017-06-20 15:18] LABS: INR 1.95; PROTHROMBIN TIME 22.9 SECONDS (12.4-14.5)
[2017-06-20 17:46] LABS: AMORPHOUS SEDIMENT RFX SMALL (NEGATIVE); KETONE, URINE AUTO RFX NEGATIVE (NEGATIVE); NITRITE, URINE AUTO RFX NEGATIVE (NEGATIVE); RBC, URINE AUTO RFX 19 /HPF (0-3); SPECIFIC GRAVITY UR AUTO RFX 1.011 (1.002-1.035); SQUAM EPITHELIAL CELL UR AURFX 0 /HPF (0-6)
[2017-06-20 17:48] LABS: AMORPHOUS SEDIMENT RFX SMALL (NEGATIVE); KETONE, URINE AUTO RFX NEGATIVE (NEGATIVE); MUCUS, URINE RFX SMALL (NEGATIVE); NITRITE, URINE AUTO RFX NEGATIVE (NEGATIVE); RBC, URINE AUTO RFX 7 /HPF (0-3); SPECIFIC GRAVITY UR AUTO RFX 1.009 (1.002-1.035); SQUAM EPITHELIAL CELL UR AURFX 0 /HPF (0-6)
[2017-06-20 17:49] LABS: LEUKOCYTE ESTERASE UR AUTO RFX 3+ (NEGATIVE); WBC, URINE AUTO RFX TNTC /HPF (0-3)
[2017-06-20 17:50] LABS: LEUKOCYTE ESTERASE UR AUTO RFX 3+ (NEGATIVE); WBC, URINE AUTO RFX 78 /HPF (0-3)
[2017-06-20 17:56] LABS: INFLUENZA A AMPLIFICATION NEGATIVE (NEGATIVE); INFLUENZA B AMPLIFICATION NEGATIVE (NEGATIVE)
[2017-06-20] MEDS: (RENVELA) SEVELAMER **CARBONate** 800 MG TAB PO (18:00)
[2017-06-20] MEDS ORDERED: DARBEPOETIN 100 MCG/0.5 ML *NON-DIALYSIS* SYRINGE (J0881) IV (18:00)
[2017-06-20] MEDS: cefTRIAXone SOD 1 GM in D5W MINI-BAG PLUS 50 ML IV (18:24)
[2017-06-20] MEDS: WARFARIN SOD 4 MG TAB PO (20:38)
[2017-06-20] MEDS: DOCUSATE SODIUM 100 MG CAP PO (20:38)
[2017-06-20] MEDS: ASPIRIN 81 MG ENTERIC TAB PO (20:39)
[2017-06-20] MEDS: BRIMONIDINE 0.15% OPHTH SOLN 5 ML OS (20:39)
[2017-06-20] MEDS: TAMSULOSIN 0.4 MG CAP PO (20:39)
[2017-06-20] MEDS: IPRATROPIUM 0.06% NASAL SPRAY 15 ML (ATROVENT) (20:39)
[2017-06-20] MEDS: FINASTERIDE 5 MG TAB PO (20:39)
[2017-06-20] MEDS: SENOKOT S TAB PO (20:39)
[2017-06-20] MEDS: ISOSORBIDE MON. (IMDUR) 30 MG XR TAB PO (20:42)
[2017-06-20] MEDS: LABETALOL 100 MG TAB PO (20:43)
[2017-06-20] MEDS: amLODIPine 5 MG TAB PO (20:43)
[2017-06-21 04:20] LABS: BASO % 0.3 % (0.0-1.0); EOS # 0.3 10^3/uL (0.0-0.50); EOS % 3.4 % (0.0-3.0); HEMATOCRIT 26.9 % (42.0-52.0); IMMATURE GRANULOCYTE % 0.3 % (0-3.0); LYMPH # 1.2 10^3/uL (1.5-4.5); LYMPH % 12.3 % (24.0-44.0); MEAN CORPUSCULAR HEMOGLOBIN 33.6 pg (27.0-33.0); MEAN CORPUSCULAR HGB CONC 33.5 g/dl (32.0-36.5); MEAN CORPUSCULAR VOLUME 100.4 fl (80.0-96.0); MONO # 1.4 10^3/uL (0.0-0.8); MONO % 14.2 % (0.0-5.0); NEUTROPHILS # 6.7 10^3/uL (1.8-7.7); NEUTROPHILS % 69.5 % (36.0-66.0); PLATELET COUNT, AUTOMATED 256 10^3/uL (150-450); RED BLOOD COUNT 2.68 10^6/uL (4.30-6.10); RED CELL DISTRIBUTION WIDTH 15.1 % (11.5-14.5); WHITE BLOOD COUNT 9.7 10^3/uL (4.0-10.0)
[2017-06-21] MEDS: cloNIDine 0.1 MG TAB PO (04:35)
[2017-06-21 04:38] LABS: INR 2.12; PROTHROMBIN TIME 24.5 SECONDS (12.4-14.5)
[2017-06-21 04:43] LABS: ALBUMIN 2.4 GM/DL (3.2-5.2); ALBUMIN/GLOBULIN RATIO 0.65 (1.00-1.93); ALKALINE PHOSPHATASE 43 U/L (45-117); ALT/SGPT 11 U/L (12-78); ANION GAP 8 MEQ/L (8-16); AST/SGOT 12 U/L (7-37); BILIRUBIN,TOTAL 0.4 MG/DL (0.2-1.0); BLOOD UREA NITROGEN 60 MG/DL (7-18); CALCIUM LEVEL 9.5 MG/DL (8.8-10.2); CARBON DIOXIDE LEVEL 28 MEQ/L (21-32); CHLORIDE LEVEL 98 MEQ/L (98-107); CREATININE FOR GFR 5.26 MG/DL (0.70-1.30); GLOMERULAR FILTRATION RATE 11.1 (>35); GLUCOSE, FASTING 94 MG/DL (70-100); MAGNESIUM LEVEL 2.1 MG/DL (1.8-2.4); POTASSIUM SERUM 4.1 MEQ/L (3.5-5.1); SODIUM LEVEL 134 MEQ/L (136-145); TOTAL PROTEIN 6.1 GM/DL (6.4-8.2)
[2017-06-21] MEDS: LEVOTHYROXINE 50MCG TABLET (0.05MG) PO (05:26)
[2017-06-21] MEDS: **hydrALAZINE** 50 MG TAB PO (06:15)
[2017-06-21] MEDS: (RENVELA) SEVELAMER **CARBONate** 800 MG TAB PO ×2 (08:00→17:28)
[2017-06-21] MEDS ORDERED: DARBEPOETIN 100 MCG/0.5 ML *DIALYSIS* SYRINGE (J0882) IV (10:30)
[2017-06-21] MEDS: HEPARIN 1,000 UNITS/ML 10ML VIAL (FOR RADIOLOGY& DIALYSIS ONLY) IV (10:30)
[2017-06-21] MEDS: HEPARIN 1,000 UNITS/ML 10ML VIAL (FOR RADIOLOGY& DIALYSIS ONLY) XX (10:30)
[2017-06-21] MEDS: LACTULOSE 20 GM/30 ML SYRUP UD PO (13:00)
[2017-06-21] MEDS: SENOKOT S TAB PO ×2 (13:02→20:37)
[2017-06-21] MEDS: DOCUSATE SODIUM 100 MG CAP PO ×2 (13:02→20:39)
[2017-06-21] MEDS: LABETALOL 100 MG TAB PO ×2 (13:02→20:38)
[2017-06-21] MEDS: ISOSORBIDE MON. (IMDUR) 30 MG XR TAB PO ×2 (13:02→20:38)
[2017-06-21] MEDS: ASPIRIN 81 MG ENTERIC TAB PO ×2 (13:02→20:37)
[2017-06-21] MEDS: amLODIPine 5 MG TAB PO ×2 (13:03→20:37)
[2017-06-21] MEDS: PANTOPRAZOLE 40MG TAB (PROTONIX) PO (13:03)
[2017-06-21] MEDS: BRIMONIDINE 0.15% OPHTH SOLN 5 ML OS ×2 (13:03→20:38)
[2017-06-21] MEDS: IPRATROPIUM 0.06% NASAL SPRAY 15 ML (ATROVENT) ×2 (13:03→21:00)
[2017-06-21] MEDS: WARFARIN SOD 4 MG TAB PO (17:28)
[2017-06-21] MEDS: cefTRIAXone SOD 1 GM in D5W MINI-BAG PLUS 50 ML IV (17:29)
[2017-06-21] MEDS: ACETAMINOPHEN TAB 650MG DOSE (2X325MG) PO (19:44)
[2017-06-21] MEDS: FINASTERIDE 5 MG TAB PO (20:37)
[2017-06-21] MEDS: TAMSULOSIN 0.4 MG CAP PO (20:37)
[2017-06-22 04:05] LABS: BASO % 0.4 % (0.0-1.0); EOS # 0.4 10^3/uL (0.0-0.50); HEMATOCRIT 26.6 % (42.0-52.0); HEMOGLOBIN 8.8 g/dl (13.5-17.5); IMMATURE GRANULOCYTE % 0.3 % (0-3.0); LYMPH # 1.3 10^3/uL (1.5-4.5); LYMPH % 19.3 % (24.0-44.0); MEAN CORPUSCULAR HEMOGLOBIN 33.6 pg (27.0-33.0); MEAN CORPUSCULAR HGB CONC 33.1 g/dl (32.0-36.5); MEAN CORPUSCULAR VOLUME 101.5 fl (80.0-96.0); MONO # 1.2 10^3/uL (0.0-0.8); MONO % 17.6 % (0.0-5.0); NEUTROPHILS # 3.8 10^3/uL (1.8-7.7); NEUTROPHILS % 56.4 % (36.0-66.0); PLATELET COUNT, AUTOMATED 263 10^3/uL (150-450); RED BLOOD COUNT 2.62 10^6/uL (4.30-6.10); RED CELL DISTRIBUTION WIDTH 15.2 % (11.5-14.5); WHITE BLOOD COUNT 6.8 10^3/uL (4.0-10.0)
[2017-06-22 04:24] LABS: INR 2.22; PROTHROMBIN TIME 25.4 SECONDS (12.4-14.5)
[2017-06-22 04:25] LABS: ALBUMIN 2.3 GM/DL (3.2-5.2); ALBUMIN/GLOBULIN RATIO 0.61 (1.00-1.93); ALKALINE PHOSPHATASE 41 U/L (45-117); ALT/SGPT 11 U/L (12-78); ANION GAP 7 MEQ/L (8-16); AST/SGOT 11 U/L (7-37); BILIRUBIN,TOTAL 0.4 MG/DL (0.2-1.0); BLOOD UREA NITROGEN 33 MG/DL (7-18); CALCIUM LEVEL 9.5 MG/DL (8.8-10.2); CARBON DIOXIDE LEVEL 29 MEQ/L (21-32); CHLORIDE LEVEL 99 MEQ/L (98-107); CREATININE FOR GFR 3.45 MG/DL (0.70-1.30); GLOMERULAR FILTRATION RATE 18.1 (>35); GLUCOSE, FASTING 96 MG/DL (70-100); MAGNESIUM LEVEL 2.1 MG/DL (1.8-2.4); PHOSPHORUS LEVEL 3.1 MG/DL (2.5-4.9); SODIUM LEVEL 135 MEQ/L (136-145); TOTAL PROTEIN 6.1 GM/DL (6.4-8.2)
[2017-06-22] MEDS: LEVOTHYROXINE 50MCG TABLET (0.05MG) PO (05:58)
[2017-06-22] MEDS: IPRATROPIUM 0.06% NASAL SPRAY 15 ML (ATROVENT) ×2 (09:00→21:11)
[2017-06-22] MEDS: ISOSORBIDE MON. (IMDUR) 30 MG XR TAB PO ×2 (09:08→21:10)
[2017-06-22] MEDS: DOCUSATE SODIUM 100 MG CAP PO ×2 (09:08→21:10)
[2017-06-22] MEDS: PANTOPRAZOLE 40MG TAB (PROTONIX) PO (09:08)
[2017-06-22] MEDS: ASPIRIN 81 MG ENTERIC TAB PO ×2 (09:08→21:11)
[2017-06-22] MEDS: LACTULOSE 20 GM/30 ML SYRUP UD PO (09:09)
[2017-06-22] MEDS: SENOKOT S TAB PO ×2 (09:09→21:11)
[2017-06-22] MEDS: (RENVELA) SEVELAMER **CARBONate** 800 MG TAB PO ×2 (09:09→17:12)
[2017-06-22] MEDS: LABETALOL 100 MG TAB PO ×2 (09:09→21:12)
[2017-06-22] MEDS: amLODIPine 5 MG TAB PO ×2 (09:09→21:10)
[2017-06-22] MEDS: BRIMONIDINE 0.15% OPHTH SOLN 5 ML OS ×2 (09:10→21:11)
[2017-06-22] MEDS: MEROPENEM INJ 500 MG in APPROPRIATE DILUENT 1 EA IV (17:12)
[2017-06-22] MEDS: WARFARIN SOD 4 MG TAB PO (17:12)
[2017-06-22] MEDS: TAMSULOSIN 0.4 MG CAP PO (21:10)
[2017-06-22] MEDS: FINASTERIDE 5 MG TAB PO (21:10)
[2017-06-23] MEDS: LEVOTHYROXINE 50MCG TABLET (0.05MG) PO (05:35)
[2017-06-23 05:51] LABS: BASO % 0.5 % (0.0-1.0); EOS # 0.5 10^3/uL (0.0-0.50); EOS % 5.4 % (0.0-3.0); HEMOGLOBIN 9.4 g/dl (13.5-17.5); IMMATURE GRANULOCYTE % 0.6 % (0-3.0); LYMPH # 1.5 10^3/uL (1.5-4.5); LYMPH % 16.9 % (24.0-44.0); MEAN CORPUSCULAR HEMOGLOBIN 33.5 pg (27.0-33.0); MEAN CORPUSCULAR HGB CONC 33.6 g/dl (32.0-36.5); MEAN CORPUSCULAR VOLUME 99.6 fl (80.0-96.0); MONO # 1.2 10^3/uL (0.0-0.8); MONO % 13.9 % (0.0-5.0); NEUTROPHILS # 5.5 10^3/uL (1.8-7.7); NEUTROPHILS % 62.7 % (36.0-66.0); PLATELET COUNT, AUTOMATED 317 10^3/uL (150-450); RED BLOOD COUNT 2.81 10^6/uL (4.30-6.10); RED CELL DISTRIBUTION WIDTH 14.4 % (11.5-14.5); WHITE BLOOD COUNT 8.8 10^3/uL (4.0-10.0)
[2017-06-23 06:06] LABS: INR 2.14; PROTHROMBIN TIME 24.7 SECONDS (12.4-14.5)
[2017-06-23 06:22] LABS: ALBUMIN 2.3 GM/DL (3.2-5.2); ALBUMIN/GLOBULIN RATIO 0.59 (1.00-1.93); ALKALINE PHOSPHATASE 44 U/L (45-117); ALT/SGPT 11 U/L (12-78); ANION GAP 10 MEQ/L (8-16); AST/SGOT 14 U/L (7-37); BILIRUBIN,TOTAL 0.4 MG/DL (0.2-1.0); BLOOD UREA NITROGEN 51 MG/DL (7-18); CALCIUM LEVEL 9.8 MG/DL (8.8-10.2); CARBON DIOXIDE LEVEL 25 MEQ/L (21-32); CHLORIDE LEVEL 97 MEQ/L (98-107); CREATININE FOR GFR 4.97 MG/DL (0.70-1.30); GLOMERULAR FILTRATION RATE 11.9 (>35); GLUCOSE, FASTING 95 MG/DL (70-100); MAGNESIUM LEVEL 2.1 MG/DL (1.8-2.4); POTASSIUM SERUM 4.6 MEQ/L (3.5-5.1); SODIUM LEVEL 132 MEQ/L (136-145); TOTAL PROTEIN 6.2 GM/DL (6.4-8.2)
[2017-06-23] MEDS: ACETAMINOPHEN TAB 650MG DOSE (2X325MG) PO (06:51)
[2017-06-23] MEDS: LACTULOSE 20 GM/30 ML SYRUP UD PO (08:11)
[2017-06-23] MEDS: PANTOPRAZOLE 40MG TAB (PROTONIX) PO (08:12)
[2017-06-23] MEDS: SENOKOT S TAB PO ×2 (08:12→21:36)
[2017-06-23] MEDS: DOCUSATE SODIUM 100 MG CAP PO ×2 (08:12→21:36)
[2017-06-23] MEDS: amLODIPine 5 MG TAB PO ×2 (08:12→21:38)
[2017-06-23] MEDS: ISOSORBIDE MON. (IMDUR) 30 MG XR TAB PO ×2 (08:12→21:37)
[2017-06-23] MEDS: LABETALOL 100 MG TAB PO ×2 (08:13→21:38)
[2017-06-23] MEDS: (RENVELA) SEVELAMER **CARBONate** 800 MG TAB PO ×2 (08:13→17:15)
[2017-06-23] MEDS: ASPIRIN 81 MG ENTERIC TAB PO ×2 (08:13→21:38)
[2017-06-23] MEDS: BRIMONIDINE 0.15% OPHTH SOLN 5 ML OS ×2 (08:14→21:38)
[2017-06-23] MEDS: IPRATROPIUM 0.06% NASAL SPRAY 15 ML (ATROVENT) ×2 (09:00→21:38)
[2017-06-23] MEDS: MEROPENEM INJ 500 MG in APPROPRIATE DILUENT 1 EA IV (17:15)
[2017-06-23] MEDS: WARFARIN SOD 4 MG TAB PO (17:15)
[2017-06-23] MEDS: FINASTERIDE 5 MG TAB PO (21:37)
[2017-06-23] MEDS: TAMSULOSIN 0.4 MG CAP PO (21:38)
[2017-06-24 06:14] LABS: BASO % 0.5 % (0.0-1.0); EOS # 0.5 10^3/uL (0.0-0.50); EOS % 6.2 % (0.0-3.0); HEMATOCRIT 29.2 % (42.0-52.0); HEMOGLOBIN 9.8 g/dl (13.5-17.5); IMMATURE GRANULOCYTE % 0.6 % (0-3.0); LYMPH # 1.6 10^3/uL (1.5-4.5); LYMPH % 19.2 % (24.0-44.0); MEAN CORPUSCULAR HGB CONC 33.6 g/dl (32.0-36.5); MEAN CORPUSCULAR VOLUME 98.3 fl (80.0-96.0); MONO % 12.2 % (0.0-5.0); NEUTROPHILS # 5.1 10^3/uL (1.8-7.7); NEUTROPHILS % 61.3 % (36.0-66.0); PLATELET COUNT, AUTOMATED 346 10^3/uL (150-450); RED BLOOD COUNT 2.97 10^6/uL (4.30-6.10); RED CELL DISTRIBUTION WIDTH 14.6 % (11.5-14.5); WHITE BLOOD COUNT 8.3 10^3/uL (4.0-10.0)
[2017-06-24] MEDS: PANTOPRAZOLE 40MG TAB (PROTONIX) PO (06:27)
[2017-06-24] MEDS: DOCUSATE SODIUM 100 MG CAP PO ×2 (06:27→22:15)
[2017-06-24] MEDS: SENOKOT S TAB PO ×2 (06:27→22:17)
[2017-06-24] MEDS: LEVOTHYROXINE 50MCG TABLET (0.05MG) PO (06:27)
[2017-06-24] MEDS: (RENVELA) SEVELAMER **CARBONate** 800 MG TAB PO ×2 (06:28→17:14)
[2017-06-24] MEDS: ASPIRIN 81 MG ENTERIC TAB PO ×2 (06:28→22:15)
[2017-06-24] MEDS: amLODIPine 5 MG TAB PO ×2 (06:29→22:17)
[2017-06-24] MEDS: ISOSORBIDE MON. (IMDUR) 30 MG XR TAB PO ×2 (06:29→22:16)
[2017-06-24] MEDS: BRIMONIDINE 0.15% OPHTH SOLN 5 ML OS ×2 (06:30→22:18)
[2017-06-24] MEDS: LABETALOL 100 MG TAB PO ×2 (06:30→22:17)
[2017-06-24] MEDS: LACTULOSE 20 GM/30 ML SYRUP UD PO (06:31)
[2017-06-24] MEDS: IPRATROPIUM 0.06% NASAL SPRAY 15 ML (ATROVENT) ×2 (06:31→22:17)
[2017-06-24 06:34] LABS: INR 2.18; PROTHROMBIN TIME 25.1 SECONDS (12.4-14.5)
[2017-06-24 06:42] LABS: ALBUMIN 2.4 GM/DL (3.2-5.2); ALBUMIN/GLOBULIN RATIO 0.65 (1.00-1.93); ALKALINE PHOSPHATASE 45 U/L (45-117); ALT/SGPT 11 U/L (12-78); ANION GAP 9 MEQ/L (8-16); AST/SGOT 13 U/L (7-37); BILIRUBIN,TOTAL 0.4 MG/DL (0.2-1.0); BLOOD UREA NITROGEN 68 MG/DL (7-18); CALCIUM LEVEL 9.7 MG/DL (8.8-10.2); CARBON DIOXIDE LEVEL 24 MEQ/L (21-32); CHLORIDE LEVEL 96 MEQ/L (98-107); CREATININE FOR GFR 5.82 MG/DL (0.70-1.30); GLOMERULAR FILTRATION RATE 9.9 (>35); GLUCOSE, FASTING 89 MG/DL (70-100); MAGNESIUM LEVEL 2.2 MG/DL (1.8-2.4); SODIUM LEVEL 129 MEQ/L (136-145); TOTAL PROTEIN 6.1 GM/DL (6.4-8.2)
[2017-06-24 06:43] LABS: POTASSIUM SERUM 5.4 MEQ/L (3.5-5.1)
[2017-06-24] MEDS: HEPARIN 1,000 UNITS/ML 10ML VIAL (FOR RADIOLOGY& DIALYSIS ONLY) XX (10:00)
[2017-06-24] MEDS: HEPARIN 1,000 UNITS/ML 10ML VIAL (FOR RADIOLOGY& DIALYSIS ONLY) IV (10:00)
[2017-06-24] MEDS: MEROPENEM INJ 500 MG in APPROPRIATE DILUENT 1 EA IV (15:42)
[2017-06-24] MEDS: WARFARIN SOD 4 MG TAB PO (17:14)
[2017-06-24] MEDS: FINASTERIDE 5 MG TAB PO (22:15)
[2017-06-24] MEDS: TAMSULOSIN 0.4 MG CAP PO (22:15)
[2017-06-25] MEDS: LEVOTHYROXINE 50MCG TABLET (0.05MG) PO (06:18)
[2017-06-25 06:44] LABS: BASO % 0.5 % (0.0-1.0); EOS # 0.6 10^3/uL (0.0-0.50); EOS % 6.5 % (0.0-3.0); HEMATOCRIT 28.3 % (42.0-52.0); HEMOGLOBIN 9.5 g/dl (13.5-17.5); IMMATURE GRANULOCYTE % 0.5 % (0-3.0); LYMPH # 1.5 10^3/uL (1.5-4.5); LYMPH % 17.6 % (24.0-44.0); MEAN CORPUSCULAR HEMOGLOBIN 33.5 pg (27.0-33.0); MEAN CORPUSCULAR HGB CONC 33.6 g/dl (32.0-36.5); MEAN CORPUSCULAR VOLUME 99.6 fl (80.0-96.0); MONO # 1.2 10^3/uL (0.0-0.8); MONO % 14.5 % (0.0-5.0); NEUTROPHILS # 5.1 10^3/uL (1.8-7.7); NEUTROPHILS % 60.4 % (36.0-66.0); PLATELET COUNT, AUTOMATED 369 10^3/uL (150-450); RED BLOOD COUNT 2.84 10^6/uL (4.30-6.10); RED CELL DISTRIBUTION WIDTH 14.7 % (11.5-14.5); WHITE BLOOD COUNT 8.5 10^3/uL (4.0-10.0)
[2017-06-25 06:58] LABS: INR 2.05; PROTHROMBIN TIME 23.8 SECONDS (12.4-14.5)
[2017-06-25 07:02] LABS: ALBUMIN 2.3 GM/DL (3.2-5.2); ALBUMIN/GLOBULIN RATIO 0.61 (1.00-1.93); ALKALINE PHOSPHATASE 47 U/L (45-117); ALT/SGPT 11 U/L (12-78); ANION GAP 7 MEQ/L (8-16); AST/SGOT 12 U/L (7-37); BILIRUBIN,TOTAL 0.3 MG/DL (0.2-1.0); BLOOD UREA NITROGEN 41 MG/DL (7-18); CALCIUM LEVEL 9.3 MG/DL (8.8-10.2); CARBON DIOXIDE LEVEL 26 MEQ/L (21-32); CHLORIDE LEVEL 102 MEQ/L (98-107); CREATININE FOR GFR 4.22 MG/DL (0.70-1.30); GLOMERULAR FILTRATION RATE 14.4 (>35); GLUCOSE, FASTING 82 MG/DL (70-100); MAGNESIUM LEVEL 2.2 MG/DL (1.8-2.4); POTASSIUM SERUM 4.8 MEQ/L (3.5-5.1); SODIUM LEVEL 135 MEQ/L (136-145); TOTAL PROTEIN 6.1 GM/DL (6.4-8.2)
[2017-06-25] MEDS: (RENVELA) SEVELAMER **CARBONate** 800 MG TAB PO ×2 (09:14→17:33)
[2017-06-25] MEDS: LACTULOSE 20 GM/30 ML SYRUP UD PO (09:14)
[2017-06-25] MEDS: ASPIRIN 81 MG ENTERIC TAB PO ×2 (09:15→21:16)
[2017-06-25] MEDS: SENOKOT S TAB PO ×2 (09:15→21:17)
[2017-06-25] MEDS: PANTOPRAZOLE 40MG TAB (PROTONIX) PO (09:15)
[2017-06-25] MEDS: amLODIPine 5 MG TAB PO ×2 (09:15→21:21)
[2017-06-25] MEDS: LABETALOL 100 MG TAB PO ×2 (09:15→21:16)
[2017-06-25] MEDS: DOCUSATE SODIUM 100 MG CAP PO ×2 (09:16→21:16)
[2017-06-25] MEDS: IPRATROPIUM 0.06% NASAL SPRAY 15 ML (ATROVENT) ×2 (09:16→21:18)
[2017-06-25] MEDS: ISOSORBIDE MON. (IMDUR) 30 MG XR TAB PO ×2 (09:16→21:16)
[2017-06-25] MEDS: BRIMONIDINE 0.15% OPHTH SOLN 5 ML OS ×2 (09:16→21:18)
[2017-06-25] MEDS ORDERED: ISOVUE-300 61% 50ML VIAL (Q9967) As Ordered (15:21)
[2017-06-25] MEDS: WARFARIN SOD 4 MG TAB PO (17:33)
[2017-06-25] MEDS: TAMSULOSIN 0.4 MG CAP PO (21:16)
[2017-06-25] MEDS: FINASTERIDE 5 MG TAB PO (21:17)
[2017-06-26 06:00] LABS: HEMATOCRIT 30.3 % (42.0-52.0); HEMOGLOBIN 10.2 g/dl (13.5-17.5); MEAN CORPUSCULAR HEMOGLOBIN 33.9 pg (27.0-33.0); MEAN CORPUSCULAR HGB CONC 33.7 g/dl (32.0-36.5); MEAN CORPUSCULAR VOLUME 100.7 fl (80.0-96.0); PLATELET COUNT, AUTOMATED 401 10^3/uL (150-450); RED BLOOD COUNT 3.01 10^6/uL (4.30-6.10); RED CELL DISTRIBUTION WIDTH 15.1 % (11.5-14.5); WHITE BLOOD COUNT 8.8 10^3/uL (4.0-10.0)
[2017-06-26] MEDS: LEVOTHYROXINE 50MCG TABLET (0.05MG) PO (06:13)
[2017-06-26] MEDS: (RENVELA) SEVELAMER **CARBONate** 800 MG TAB PO ×2 (06:14→17:19)
[2017-06-26] MEDS: DOCUSATE SODIUM 100 MG CAP PO ×2 (06:15→22:10)
[2017-06-26] MEDS: ASPIRIN 81 MG ENTERIC TAB PO ×2 (06:15→22:10)
[2017-06-26] MEDS: LACTULOSE 20 GM/30 ML SYRUP UD PO (06:15)
[2017-06-26] MEDS: ISOSORBIDE MON. (IMDUR) 30 MG XR TAB PO ×2 (06:16→22:09)
[2017-06-26] MEDS: LABETALOL 100 MG TAB PO ×2 (06:16→22:11)
[2017-06-26] MEDS: PANTOPRAZOLE 40MG TAB (PROTONIX) PO (06:17)
[2017-06-26] MEDS: IPRATROPIUM 0.06% NASAL SPRAY 15 ML (ATROVENT) ×2 (06:17→22:11)
[2017-06-26] MEDS: SENOKOT S TAB PO ×2 (06:17→22:09)
[2017-06-26] MEDS: amLODIPine 5 MG TAB PO ×2 (06:17→22:10)
[2017-06-26] MEDS: BRIMONIDINE 0.15% OPHTH SOLN 5 ML OS ×2 (06:18→22:11)
[2017-06-26 06:23] LABS: ANION GAP 9 MEQ/L (8-16); BLOOD UREA NITROGEN 62 MG/DL (7-18); CALCIUM LEVEL 9.8 MG/DL (8.8-10.2); CARBON DIOXIDE LEVEL 24 MEQ/L (21-32); CHLORIDE LEVEL 99 MEQ/L (98-107); CREATININE FOR GFR 5.33 MG/DL (0.70-1.30); GLUCOSE, FASTING 90 MG/DL (70-100); MAGNESIUM LEVEL 2.3 MG/DL (1.8-2.4); SODIUM LEVEL 132 MEQ/L (136-145)
[2017-06-26 06:36] LABS: INR 1.82; PROTHROMBIN TIME 21.6 SECONDS (12.4-14.5)
[2017-06-26 06:42] LABS: POTASSIUM SERUM 5.4 MEQ/L (3.5-5.1)
[2017-06-26] MEDS: HEPARIN 1,000 UNITS/ML 10ML VIAL (FOR RADIOLOGY& DIALYSIS ONLY) XX (10:15)
[2017-06-26] MEDS: HEPARIN 1,000 UNITS/ML 10ML VIAL (FOR RADIOLOGY& DIALYSIS ONLY) IV (10:15)
[2017-06-26] MEDS ORDERED: CEFTAZIDIME IV (16:00)
[2017-06-26] MEDS ORDERED: D5W IV (16:00)
[2017-06-26] MEDS ORDERED: WARFARIN SOD 3 MG TAB PO (17:00)
[2017-06-26] MEDS: WARFARIN SOD 7.5 MG TAB PO (17:19)
[2017-06-26] MEDS: D5W IV (18:45)
[2017-06-26] MEDS: CEFTAZIDIME IV (18:45)
[2017-06-26] MEDS: ONDANSETRON 4MG/2ML VIAL (J2405) IV (18:45)
[2017-06-26] MEDS: TAMSULOSIN 0.4 MG CAP PO (22:09)
[2017-06-26] MEDS: FINASTERIDE 5 MG TAB PO (22:10)
[2017-06-27] MEDS: LEVOTHYROXINE 50MCG TABLET (0.05MG) PO (06:13)
[2017-06-27 06:19] LABS: HEMATOCRIT 30.7 % (42.0-52.0); MEAN CORPUSCULAR HEMOGLOBIN 33.1 pg (27.0-33.0); MEAN CORPUSCULAR HGB CONC 32.6 g/dl (32.0-36.5); MEAN CORPUSCULAR VOLUME 101.7 fl (80.0-96.0); PLATELET COUNT, AUTOMATED 340 10^3/uL (150-450); RED BLOOD COUNT 3.02 10^6/uL (4.30-6.10); RED CELL DISTRIBUTION WIDTH 15.3 % (11.5-14.5); WHITE BLOOD COUNT 9.2 10^3/uL (4.0-10.0)
[2017-06-27 06:28] LABS: INR 2.07
[2017-06-27 06:37] LABS: ANION GAP 7 MEQ/L (8-16); BLOOD UREA NITROGEN 47 MG/DL (7-18); CALCIUM LEVEL 9.3 MG/DL (8.8-10.2); CARBON DIOXIDE LEVEL 26 MEQ/L (21-32); CHLORIDE LEVEL 101 MEQ/L (98-107); CREATININE FOR GFR 4.16 MG/DL (0.70-1.30); GLOMERULAR FILTRATION RATE 14.6 (>35); GLUCOSE, FASTING 82 MG/DL (70-100); MAGNESIUM LEVEL 2.2 MG/DL (1.8-2.4); POTASSIUM SERUM 4.9 MEQ/L (3.5-5.1); SODIUM LEVEL 134 MEQ/L (136-145)
[2017-06-27] MEDS: LACTULOSE 20 GM/30 ML SYRUP UD PO (08:51)
[2017-06-27] MEDS: SENOKOT S TAB PO ×2 (08:54→20:53)
[2017-06-27] MEDS: PANTOPRAZOLE 40MG TAB (PROTONIX) PO (08:54)
[2017-06-27] MEDS: LABETALOL 100 MG TAB PO ×2 (08:54→20:56)
[2017-06-27] MEDS: DOCUSATE SODIUM 100 MG CAP PO ×2 (08:54→20:55)
[2017-06-27] MEDS: (RENVELA) SEVELAMER **CARBONate** 800 MG TAB PO ×2 (08:54→18:02)
[2017-06-27] MEDS: amLODIPine 5 MG TAB PO ×2 (08:55→20:55)
[2017-06-27] MEDS: ASPIRIN 81 MG ENTERIC TAB PO ×2 (08:55→20:55)
[2017-06-27] MEDS: ISOSORBIDE MON. (IMDUR) 30 MG XR TAB PO ×2 (08:55→20:55)
[2017-06-27] MEDS: BRIMONIDINE 0.15% OPHTH SOLN 5 ML OS ×2 (09:28→20:56)
[2017-06-27] MEDS: IPRATROPIUM 0.06% NASAL SPRAY 15 ML (ATROVENT) ×2 (09:28→20:56)
[2017-06-27] MEDS: cloNIDine 0.1 MG TAB PO ×2 (15:46→16:11)
[2017-06-27] MEDS: WARFARIN SOD 4 MG TAB PO (16:11)
[2017-06-27] MEDS: CEFTAZIDIME IV (18:02)
[2017-06-27] MEDS: D5W IV (18:02)
[2017-06-27] MEDS: TAMSULOSIN 0.4 MG CAP PO (20:55)
[2017-06-27] MEDS: FINASTERIDE 5 MG TAB PO (20:55)
[2017-06-28] MEDS: (RENVELA) SEVELAMER **CARBONate** 800 MG TAB PO ×2 (06:17→17:40)
[2017-06-28] MEDS: LEVOTHYROXINE 50MCG TABLET (0.05MG) PO (06:17)
[2017-06-28] MEDS: LACTULOSE 20 GM/30 ML SYRUP UD PO (06:18)
[2017-06-28] MEDS: SENOKOT S TAB PO ×2 (06:18→20:28)
[2017-06-28] MEDS: LABETALOL 100 MG TAB PO ×2 (06:19→20:30)
[2017-06-28] MEDS: DOCUSATE SODIUM 100 MG CAP PO ×2 (06:19→20:28)
[2017-06-28] MEDS: ISOSORBIDE MON. (IMDUR) 30 MG XR TAB PO ×2 (06:19→20:29)
[2017-06-28] MEDS: ASPIRIN 81 MG ENTERIC TAB PO ×2 (06:20→20:28)
[2017-06-28] MEDS: PANTOPRAZOLE 40MG TAB (PROTONIX) PO (06:20)
[2017-06-28] MEDS: BRIMONIDINE 0.15% OPHTH SOLN 5 ML OS ×2 (06:21→20:30)
[2017-06-28] MEDS: amLODIPine 5 MG TAB PO ×2 (06:21→20:29)
[2017-06-28] MEDS: IPRATROPIUM 0.06% NASAL SPRAY 15 ML (ATROVENT) ×2 (06:21→20:30)
[2017-06-28 06:24] LABS: HEMOGLOBIN 9.5 g/dl (13.5-17.5); MEAN CORPUSCULAR HEMOGLOBIN 33.6 pg (27.0-33.0); MEAN CORPUSCULAR HGB CONC 33.9 g/dl (32.0-36.5); MEAN CORPUSCULAR VOLUME 98.9 fl (80.0-96.0); PLATELET COUNT, AUTOMATED 367 10^3/uL (150-450); RED BLOOD COUNT 2.83 10^6/uL (4.30-6.10); RED CELL DISTRIBUTION WIDTH 15.3 % (11.5-14.5); WHITE BLOOD COUNT 10.6 10^3/uL (4.0-10.0)
[2017-06-28 06:40] LABS: ANION GAP 9 MEQ/L (8-16); BLOOD UREA NITROGEN 68 MG/DL (7-18); CALCIUM LEVEL 8.9 MG/DL (8.8-10.2); CARBON DIOXIDE LEVEL 23 MEQ/L (21-32); CHLORIDE LEVEL 99 MEQ/L (98-107); CREATININE FOR GFR 5.14 MG/DL (0.70-1.30); GLOMERULAR FILTRATION RATE 11.4 (>35); GLUCOSE, FASTING 79 MG/DL (70-100); SODIUM LEVEL 131 MEQ/L (136-145)
[2017-06-28 06:41] LABS: POTASSIUM SERUM 5.2 MEQ/L (3.5-5.1)
[2017-06-28] MEDS: HEPARIN 1,000 UNITS/ML 10ML VIAL (FOR RADIOLOGY& DIALYSIS ONLY) XX (12:15)
[2017-06-28] MEDS: HEPARIN 1,000 UNITS/ML 10ML VIAL (FOR RADIOLOGY& DIALYSIS ONLY) IV (12:15)
[2017-06-28] MEDS: CEFTAZIDIME IV (17:40)
[2017-06-28] MEDS: D5W IV (17:40)
[2017-06-28] MEDS: WARFARIN SOD 5 MG TAB PO (17:40)
[2017-06-28] MEDS: FINASTERIDE 5 MG TAB PO (20:28)
[2017-06-28] MEDS: TAMSULOSIN 0.4 MG CAP PO (20:28)
[2017-06-28] MEDS: cloNIDine 0.1 MG TAB PO (20:28)
[2017-06-29] MEDS: LEVOTHYROXINE 50MCG TABLET (0.05MG) PO (05:48)
[2017-06-29 06:02] LABS: HEMATOCRIT 29.1 % (42.0-52.0); HEMOGLOBIN 9.7 g/dl (13.5-17.5); MEAN CORPUSCULAR HEMOGLOBIN 33.6 pg (27.0-33.0); MEAN CORPUSCULAR HGB CONC 33.3 g/dl (32.0-36.5); MEAN CORPUSCULAR VOLUME 100.7 fl (80.0-96.0); PLATELET COUNT, AUTOMATED 365 10^3/uL (150-450); RED BLOOD COUNT 2.89 10^6/uL (4.30-6.10)
[2017-06-29 06:22] LABS: ANION GAP 7 MEQ/L (8-16); BLOOD UREA NITROGEN 45 MG/DL (7-18); CALCIUM LEVEL 9.2 MG/DL (8.8-10.2); CARBON DIOXIDE LEVEL 26 MEQ/L (21-32); CHLORIDE LEVEL 104 MEQ/L (98-107); CREATININE FOR GFR 3.78 MG/DL (0.70-1.30); GLOMERULAR FILTRATION RATE 16.3 (>35); GLUCOSE, FASTING 87 MG/DL (70-100); POTASSIUM SERUM 4.4 MEQ/L (3.5-5.1); SODIUM LEVEL 137 MEQ/L (136-145)
[2017-06-29] MEDS: PANTOPRAZOLE 40MG TAB (PROTONIX) PO (08:05)
[2017-06-29] MEDS: LACTULOSE 20 GM/30 ML SYRUP UD PO (08:05)
[2017-06-29] MEDS: SENOKOT S TAB PO ×2 (08:05→21:50)
[2017-06-29] MEDS: (RENVELA) SEVELAMER **CARBONate** 800 MG TAB PO ×2 (08:05→17:37)
[2017-06-29] MEDS: ISOSORBIDE MON. (IMDUR) 30 MG XR TAB PO ×2 (08:06→21:50)
[2017-06-29] MEDS: LABETALOL 100 MG TAB PO ×2 (08:06→21:51)
[2017-06-29] MEDS: amLODIPine 5 MG TAB PO ×2 (08:06→21:51)
[2017-06-29] MEDS: DOCUSATE SODIUM 100 MG CAP PO ×2 (08:06→21:50)
[2017-06-29] MEDS: ASPIRIN 81 MG ENTERIC TAB PO ×2 (08:07→21:51)
[2017-06-29] MEDS: BRIMONIDINE 0.15% OPHTH SOLN 5 ML OS ×2 (08:08→21:52)
[2017-06-29] MEDS: IPRATROPIUM 0.06% NASAL SPRAY 15 ML (ATROVENT) ×2 (08:08→21:52)
[2017-06-29] MEDS: CEFTAZIDIME IV (17:37)
[2017-06-29] MEDS: D5W IV (17:37)
[2017-06-29] MEDS: WARFARIN SOD 5 MG TAB PO (17:37)
[2017-06-29] MEDS: FINASTERIDE 5 MG TAB PO (21:51)
[2017-06-29] MEDS: TAMSULOSIN 0.4 MG CAP PO (21:53)
[2017-06-29] MEDS: cloNIDine 0.1 MG TAB PO (22:48)
[2017-06-29] MEDS: **hydrALAZINE** 50 MG TAB PO (22:49)
[2017-06-30] MEDS: LEVOTHYROXINE 50MCG TABLET (0.05MG) PO (05:54)
[2017-06-30 06:08] LABS: HEMATOCRIT 27.6 % (42.0-52.0); HEMOGLOBIN 9.2 g/dl (13.5-17.5); MEAN CORPUSCULAR HEMOGLOBIN 33.5 pg (27.0-33.0); MEAN CORPUSCULAR HGB CONC 33.3 g/dl (32.0-36.5); MEAN CORPUSCULAR VOLUME 100.4 fl (80.0-96.0); PLATELET COUNT, AUTOMATED 383 10^3/uL (150-450); RED BLOOD COUNT 2.75 10^6/uL (4.30-6.10); WHITE BLOOD COUNT 9.5 10^3/uL (4.0-10.0)
[2017-06-30 06:43] LABS: ALBUMIN 2.3 GM/DL (3.2-5.2); ANION GAP 7 MEQ/L (8-16); BLOOD UREA NITROGEN 61 MG/DL (7-18); CALCIUM LEVEL 9.3 MG/DL (8.8-10.2); CARBON DIOXIDE LEVEL 25 MEQ/L (21-32); CHLORIDE LEVEL 102 MEQ/L (98-107); CREATININE FOR GFR 4.96 MG/DL (0.70-1.30); GLOMERULAR FILTRATION RATE 11.9 (>35); GLUCOSE, FASTING 83 MG/DL (70-100); PHOSPHORUS LEVEL 3.7 MG/DL (2.5-4.9); POTASSIUM SERUM 4.8 MEQ/L (3.5-5.1); SODIUM LEVEL 134 MEQ/L (136-145)
[2017-06-30] MEDS: (RENVELA) SEVELAMER **CARBONate** 800 MG TAB PO ×2 (08:57→17:42)
[2017-06-30] MEDS: LACTULOSE 20 GM/30 ML SYRUP UD PO ×2 (08:57→18:49)
[2017-06-30] MEDS: ASPIRIN 81 MG ENTERIC TAB PO ×2 (08:58→21:10)
[2017-06-30] MEDS: SENOKOT S TAB PO ×2 (08:58→21:11)
[2017-06-30] MEDS: PANTOPRAZOLE 40MG TAB (PROTONIX) PO (08:58)
[2017-06-30] MEDS: amLODIPine 5 MG TAB PO ×2 (08:59→21:10)
[2017-06-30] MEDS: ISOSORBIDE MON. (IMDUR) 30 MG XR TAB PO ×2 (08:59→21:12)
[2017-06-30] MEDS: LABETALOL 100 MG TAB PO ×2 (08:59→21:11)
[2017-06-30] MEDS: DOCUSATE SODIUM 100 MG CAP PO ×2 (08:59→21:12)
[2017-06-30] MEDS: IPRATROPIUM 0.06% NASAL SPRAY 15 ML (ATROVENT) ×2 (09:00→21:12)
[2017-06-30] MEDS: BRIMONIDINE 0.15% OPHTH SOLN 5 ML OS ×2 (09:00→21:12)
[2017-06-30] MEDS ORDERED: SODIUM CHLORIDE 0.9% INJ 10 ML SYR IV (17:15)
[2017-06-30] MEDS: CEFTAZIDIME IV (17:42)
[2017-06-30] MEDS: SODIUM CHLORIDE 0.9% INJ 10 ML SYR IV (17:42)
[2017-06-30] MEDS: D5W IV (17:42)
[2017-06-30] MEDS: WARFARIN SOD 5 MG TAB PO (17:43)
[2017-06-30] MEDS: ACETAMINOPHEN TAB 650MG DOSE (2X325MG) PO (18:49)
[2017-06-30] MEDS: FINASTERIDE 5 MG TAB PO (21:11)
[2017-06-30] MEDS: TAMSULOSIN 0.4 MG CAP PO (21:12)
[2017-07-01] MEDS: PANTOPRAZOLE 40MG TAB (PROTONIX) PO (05:35)
[2017-07-01] MEDS: SODIUM CHLORIDE 0.9% INJ 10 ML SYR IV ×2 (05:35→18:07)
[2017-07-01] MEDS: LEVOTHYROXINE 50MCG TABLET (0.05MG) PO (05:36)
[2017-07-01] MEDS: **hydrALAZINE** 50 MG TAB PO (05:36)
[2017-07-01] MEDS: ASPIRIN 81 MG ENTERIC TAB PO ×2 (05:36→21:42)
[2017-07-01] MEDS: amLODIPine 5 MG TAB PO ×2 (05:37→21:43)
[2017-07-01] MEDS: DOCUSATE SODIUM 100 MG CAP PO ×2 (05:37→21:43)
[2017-07-01] MEDS: SENOKOT S TAB PO ×2 (05:37→21:42)
[2017-07-01] MEDS: (RENVELA) SEVELAMER **CARBONate** 800 MG TAB PO ×2 (05:38→18:06)
[2017-07-01] MEDS: LACTULOSE 20 GM/30 ML SYRUP UD PO (05:38)
[2017-07-01] MEDS: ISOSORBIDE MON. (IMDUR) 30 MG XR TAB PO ×2 (05:39→21:43)
[2017-07-01] MEDS: cloNIDine 0.1 MG TAB PO ×2 (05:39→16:40)
[2017-07-01] MEDS: LABETALOL 100 MG TAB PO ×2 (05:42→21:42)
[2017-07-01] MEDS: BRIMONIDINE 0.15% OPHTH SOLN 5 ML OS ×2 (05:44→21:41)
[2017-07-01] MEDS: IPRATROPIUM 0.06% NASAL SPRAY 15 ML (ATROVENT) ×2 (05:44→21:42)
[2017-07-01] MEDS: HEPARIN 1,000 UNITS/ML 10ML VIAL (FOR RADIOLOGY& DIALYSIS ONLY) IV (11:15)
[2017-07-01] MEDS: WARFARIN SOD 5 MG TAB PO (16:40)
[2017-07-01] MEDS: D5W IV (18:07)
[2017-07-01] MEDS: CEFTAZIDIME IV (18:07)
[2017-07-01] MEDS: FINASTERIDE 5 MG TAB PO (21:43)
[2017-07-01] MEDS: TAMSULOSIN 0.4 MG CAP PO (21:44)
[2017-07-02] MEDS: LEVOTHYROXINE 50MCG TABLET (0.05MG) PO (05:47)
[2017-07-02] MEDS: SODIUM CHLORIDE 0.9% INJ 10 ML SYR IV (05:47)
[2017-07-02] MEDS: ASPIRIN 81 MG ENTERIC TAB PO (09:32)
[2017-07-02] MEDS: (RENVELA) SEVELAMER **CARBONate** 800 MG TAB PO (09:32)
[2017-07-02] MEDS: LACTULOSE 20 GM/30 ML SYRUP UD PO (09:32)
[2017-07-02] MEDS: DOCUSATE SODIUM 100 MG CAP PO (09:32)
[2017-07-02] MEDS: SENOKOT S TAB PO (09:33)
[2017-07-02] MEDS: PANTOPRAZOLE 40MG TAB (PROTONIX) PO (09:33)
[2017-07-02] MEDS: ISOSORBIDE MON. (IMDUR) 30 MG XR TAB PO (09:33)
[2017-07-02] MEDS: LABETALOL 100 MG TAB PO (09:34)
[2017-07-02] MEDS: amLODIPine 5 MG TAB PO (09:34)
[2017-07-02] MEDS: BRIMONIDINE 0.15% OPHTH SOLN 5 ML OS (09:36)
[2017-07-02] MEDS: IPRATROPIUM 0.06% NASAL SPRAY 15 ML (ATROVENT) (09:36)
== END 2017-07-02 11:45 | DRG 698 ==
LOC: M MSPAV 06-22 10:53 → M ED 14:50 → M ED INP 18:35 → M ICU 19:54
PROC: 5A1D70Z Performance of Urinary Filtration, Intermittent, Less than 6 Hours Per Day (ICD-10-PCS; 2017-06-21)
PROC: 0T9430Z Drainage of Left Kidney Pelvis with Drainage Device, Percutaneous Approach (ICD-10-PCS; principal; 2017-06-25)
PROC: 02HV33Z Insertion of Infusion Device into Superior Vena Cava, Percutaneous Approach (ICD-10-PCS; 2017-06-30)
DX: T83.518A Infection and inflammatory reaction due to other urinary catheter, initial encounter (principal); G93.41 Metabolic encephalopathy; N18.6 End stage renal disease; I50.23 Acute on chronic systolic (congestive) heart failure; I13.2 Hypertensive heart and chronic kidney disease with heart failure and with stage 5 chronic kidney disease, or end stage renal disease; N39.0 Urinary tract infection, site not specified; F32.0 Major depressive disorder, single episode, mild; E87.1 Hypo-osmolality and hyponatremia; E87.0 Hyperosmolality and hypernatremia; N25.81 Secondary hyperparathyroidism of renal origin; R62.7 Adult failure to thrive; R53.1 Weakness; I25.10 Atherosclerotic heart disease of native coronary artery without angina pectoris; N40.0 Benign prostatic hyperplasia without lower urinary tract symptoms; K21.9 Gastro-esophageal reflux disease without esophagitis; I44.0 Atrioventricular block, first degree; Z86.718 Personal history of other venous thrombosis and embolism; Z79.01 Long term (current) use of anticoagulants; Z86.73 Personal history of transient ischemic attack (TIA), and cerebral infarction without residual deficits; Z79.899 Other long term (current) drug therapy; Z79.82 Long term (current) use of aspirin; Z88.0 Allergy status to penicillin; Z66 Do not resuscitate; B96.5 Pseudomonas (aeruginosa) (mallei) (pseudomallei) as the cause of diseases classified elsewhere; E83.39 Other disorders of phosphorus metabolism; Y84.8 Other medical procedures as the cause of abnormal reaction of the patient, or of later complication, without mention of misadventure at the time of the procedure

== ENCOUNTER → 2017-07-08 | Outpatient (REF) ==
[2017-07-08 11:52] LABS: HEMATOCRIT 34.9 % (42.0-52.0); HEMOGLOBIN 11.4 g/dl (13.5-17.5); MEAN CORPUSCULAR HGB CONC 32.7 g/dl (32.0-36.5); MEAN CORPUSCULAR VOLUME 101.2 fl (80.0-96.0); PLATELET COUNT, AUTOMATED 350 10^3/uL (150-450); RED BLOOD COUNT 3.45 10^6/uL (4.30-6.10); RED CELL DISTRIBUTION WIDTH 16.9 % (11.5-14.5); WHITE BLOOD COUNT 9.1 10^3/uL (4.0-10.0)
== END ==
DX: N39.0 Urinary tract infection, site not specified (principal); N18.6 End stage renal disease

== ENCOUNTER → 2017-07-15 | Outpatient (REF) ==
[2017-07-15 09:29] LABS: HEMATOCRIT 37.1 % (42.0-52.0); HEMOGLOBIN 12.4 g/dl (13.5-17.5); MEAN CORPUSCULAR HGB CONC 33.4 g/dl (32.0-36.5); MEAN CORPUSCULAR VOLUME 98.7 fl (80.0-96.0); PLATELET COUNT, AUTOMATED 258 10^3/uL (150-450); RED BLOOD COUNT 3.76 10^6/uL (4.30-6.10); RED CELL DISTRIBUTION WIDTH 15.2 % (11.5-14.5); WHITE BLOOD COUNT 9.8 10^3/uL (4.0-10.0)
== END ==
DX: N39.0 Urinary tract infection, site not specified (principal); N18.6 End stage renal disease

== ENCOUNTER 2017-07-16 07:54 | Inpatient (IN) | payer MEDICARE, OTHER ==
[~2017-07-16 07:54] MED LIST changes: -ALBUTEROL SULFATE 2.5 MG/0.5 ML INH NEB SOLN NEB; -BISACODYL 10 MG SUPP PR; -BISACODYL 5 MG TAB PO; +LEVOTHYROXINE 75MCG TABLET (0.075MG) PO; -MIRALAX *UNIT DOSE* 17GM PACKET PO; -ONDANSETRON 4 MG ORAL DISINTEGRATING TAB (Q0162 PER 1MG) PO; -ONDANSETRON 4MG/2ML VIAL (J2405) IV
[2017-07-16 08:26] LABS: BASO # 0.1 10^3/uL (0.0-0.2); BASO % 0.6 % (0.0-1.0); EOS # 0.1 10^3/uL (0.0-0.50); EOS % 0.9 % (0.0-3.0); HEMATOCRIT 39.2 % (42.0-52.0); HEMOGLOBIN 13.1 g/dl (13.5-17.5); IMMATURE GRANULOCYTE % 0.3 % (0-3.0); LYMPH # 1.3 10^3/uL (1.5-4.5); LYMPH % 11.6 % (24.0-44.0); MEAN CORPUSCULAR HEMOGLOBIN 32.8 pg (27.0-33.0); MEAN CORPUSCULAR HGB CONC 33.4 g/dl (32.0-36.5); MEAN CORPUSCULAR VOLUME 98.2 fl (80.0-96.0); MONO # 0.9 10^3/uL (0.0-0.8); MONO % 8.6 % (0.0-5.0); NEUTROPHILS # 8.4 10^3/uL (1.8-7.7); PLATELET COUNT, AUTOMATED 254 10^3/uL (150-450); RED BLOOD COUNT 3.99 10^6/uL (4.30-6.10); RED CELL DISTRIBUTION WIDTH 15.1 % (11.5-14.5); WHITE BLOOD COUNT 10.8 10^3/uL (4.0-10.0)
[2017-07-16] MEDS: FUROSEMIDE 100 MG/10 ML VIAL (J1940) IV (08:26)
[2017-07-16 08:37] LABS: ABG BASE EXCESS -0.2 (-2.0-2.0); ABG HCO3 23.5 MEQ/L (22.0-26.0); ABG O2 SATURATION 98.9 % (95.0-99.0); ABG PARTIAL PRESSURE CO2 35.4 mmHg (35.0-45.0); ABG PARTIAL PRESSURE O2 137.1 mmHg (75.0-100.0); ABG STANDARD HCO3 24.4 MEQ/L (22.0-26.0); ABG TOTAL CO2 24.6 MEQ/L (23.0-31.0)
[2017-07-16 08:41] LABS: PROTHROMBIN TIME 22.4 SECONDS (12.4-14.5)
[2017-07-16 08:52] LABS: LACTIC ACID SEPSIS PROTOCOL 0.8 MMOL/L (0.4-2.0)
[2017-07-16 08:53] LABS: ANION GAP 7 MEQ/L (8-16); BLOOD UREA NITROGEN 62 MG/DL (7-18); CALCIUM LEVEL 9.5 MG/DL (8.8-10.2); CARBON DIOXIDE LEVEL 28 MEQ/L (21-32); CHLORIDE LEVEL 96 MEQ/L (98-107); CPK CREATINE PHOSPHOKINASE 121 U/L (39-308); CREATININE FOR GFR 4.48 MG/DL (0.70-1.30); GLOMERULAR FILTRATION RATE 13.4 (>35); GLUCOSE, FASTING 99 MG/DL (70-100); SODIUM LEVEL 131 MEQ/L (136-145); TROPONIN I 0.74 NG/ML (< 0.10)
[2017-07-16 08:58] LABS: CK-MB VALUE MASS 7.7 NG/ML (<3.6); MB/CK RELATIVE INDEX 6.36 (< OR =4)
[2017-07-16] MEDS ORDERED: FLEET ENEMA PR (11:15)
[2017-07-16 12:54] LABS: TROPONIN I 3.85 NG/ML (< 0.10)
[2017-07-16] MEDS: WARFARIN SOD 3 MG TAB PO (17:00)
[2017-07-16] MEDS: ASPIRIN 81 MG ENTERIC TAB PO ×2 (21:00)
[2017-07-16] MEDS: LABETALOL 100 MG TAB PO ×2 (21:00)
[2017-07-16] MEDS: LACTULOSE 20 GM/30 ML SYRUP UD PO (21:00)
[2017-07-16] MEDS: amLODIPine 5 MG TAB PO ×2 (21:00)
[2017-07-16] MEDS: SENOKOT S TAB PO ×2 (21:00)
[2017-07-16] MEDS: ISOSORBIDE MON. (IMDUR) 30 MG XR TAB PO ×2 (21:00)
[2017-07-16] MEDS: FINASTERIDE 5 MG TAB PO (21:00)
[2017-07-16] MEDS: TAMSULOSIN 0.4 MG CAP PO (21:00)
[2017-07-16] MEDS: (RENVELA) SEVELAMER **CARBONate** 800 MG TAB PO (21:00)
[2017-07-16] MEDS ORDERED: NITROGLYCERIN 0.4 MG SUBL TABLET SL (22:15)
[2017-07-16] MEDS: NITROGLYCERIN/D5W 100MCG/ML 25 MG in APPROPRIATE DILUENT 1 EA IV (22:29)
[2017-07-16 23:23] LABS: TROPONIN I 7.34 NG/ML (< 0.10)
[2017-07-17] MEDS: METOPROLOL TART 25 MG TABLET PO ×2 (00:04→05:11)
[2017-07-17 00:43] LABS: TROPONIN I 8.77 NG/ML (< 0.10)
[2017-07-17] MEDS: MORPHINE 4 MG/ML 1ML VIAL/SYRINGE (J2270) IV (03:02)
[2017-07-17 04:43] LABS: HEMATOCRIT 35.1 % (42.0-52.0); HEMOGLOBIN 11.7 g/dl (13.5-17.5); MEAN CORPUSCULAR HEMOGLOBIN 33.1 pg (27.0-33.0); MEAN CORPUSCULAR HGB CONC 33.3 g/dl (32.0-36.5); MEAN CORPUSCULAR VOLUME 99.2 fl (80.0-96.0); PLATELET COUNT, AUTOMATED 218 10^3/uL (150-450); RED BLOOD COUNT 3.54 10^6/uL (4.30-6.10); RED CELL DISTRIBUTION WIDTH 15.1 % (11.5-14.5); WHITE BLOOD COUNT 6.2 10^3/uL (4.0-10.0)
[2017-07-17 04:56] LABS: ANION GAP 9 MEQ/L (8-16); BLOOD UREA NITROGEN 40 MG/DL (7-18); CALCIUM LEVEL 8.8 MG/DL (8.8-10.2); CARBON DIOXIDE LEVEL 26 MEQ/L (21-32); CHLORIDE LEVEL 101 MEQ/L (98-107); CREATININE FOR GFR 3.88 MG/DL (0.70-1.30); GLOMERULAR FILTRATION RATE 15.8 (>35); GLUCOSE, FASTING 99 MG/DL (70-100); POTASSIUM SERUM 3.9 MEQ/L (3.5-5.1); SODIUM LEVEL 136 MEQ/L (136-145)
[2017-07-17 05:06] LABS: INR 2.44; PROTHROMBIN TIME 27.5 SECONDS (12.4-14.5); TROPONIN I 7.71 NG/ML (< 0.10)
[2017-07-17] MEDS: LEVOTHYROXINE 75MCG TABLET (0.075MG) PO (05:10)
[2017-07-17] MEDS: IPRATROPIUM 0.06% NASAL SPRAY 15 ML (ATROVENT) ×3 (07:36→20:32)
[2017-07-17] MEDS: BRIMONIDINE 0.15% OPHTH SOLN 5 ML OS ×3 (07:37→20:32)
[2017-07-17] MEDS ORDERED: NITROGLYCERIN IN D5W 25MG/250ML (100MCG/ML) As Ordered ×2 (07:39→11:18)
[2017-07-17] MEDS: NITROGLYCERIN/D5W 100MCG/ML 25 MG in APPROPRIATE DILUENT 1 EA IV ×3 (07:49→15:02)
[2017-07-17] MEDS: (RENVELA) SEVELAMER **CARBONate** 800 MG TAB PO ×2 (08:00→12:00)
[2017-07-17] MEDS: LACTULOSE 20 GM/30 ML SYRUP UD PO (08:20)
[2017-07-17] MEDS: PANTOPRAZOLE 40MG TAB (PROTONIX) PO (08:21)
[2017-07-17] MEDS: ASPIRIN 81 MG ENTERIC TAB PO ×2 (08:21→20:30)
[2017-07-17] MEDS: SENOKOT S TAB PO ×2 (08:21→20:30)
[2017-07-17] MEDS: amLODIPine 5 MG TAB PO ×2 (08:21→20:31)
[2017-07-17] MEDS: HEPARIN 1,000 UNITS/ML 10ML VIAL (FOR RADIOLOGY& DIALYSIS ONLY) IV (11:00)
[2017-07-17] MEDS: LABETALOL 100 MG TAB PO ×2 (11:14→20:29)
[2017-07-17] MEDS: WARFARIN SOD 3 MG TAB PO (16:56)
[2017-07-17] MEDS: TAMSULOSIN 0.4 MG CAP PO (20:30)
[2017-07-17] MEDS: FINASTERIDE 5 MG TAB PO (20:31)
[2017-07-18] MEDS: NITROGLYCERIN/D5W 100MCG/ML 25 MG in APPROPRIATE DILUENT 1 EA IV ×2 (03:13→08:32)
[2017-07-18 05:12] LABS: MEAN CORPUSCULAR HEMOGLOBIN 32.1 pg (27.0-33.0); MEAN CORPUSCULAR HGB CONC 32.4 g/dl (32.0-36.5); MEAN CORPUSCULAR VOLUME 99.1 fl (80.0-96.0); PLATELET COUNT, AUTOMATED 205 10^3/uL (150-450); RED BLOOD COUNT 3.43 10^6/uL (4.30-6.10); RED CELL DISTRIBUTION WIDTH 14.7 % (11.5-14.5); WHITE BLOOD COUNT 7.6 10^3/uL (4.0-10.0)
[2017-07-18 05:28] LABS: INR 2.29; PROTHROMBIN TIME 26.1 SECONDS (12.4-14.5)
[2017-07-18 05:29] LABS: ANION GAP 6 MEQ/L (8-16); BLOOD UREA NITROGEN 35 MG/DL (7-18); CALCIUM LEVEL 8.7 MG/DL (8.8-10.2); CARBON DIOXIDE LEVEL 27 MEQ/L (21-32); CHLORIDE LEVEL 100 MEQ/L (98-107); CREATININE FOR GFR 3.55 MG/DL (0.70-1.30); GLOMERULAR FILTRATION RATE 17.5 (>35); GLUCOSE, FASTING 98 MG/DL (70-100); SODIUM LEVEL 133 MEQ/L (136-145)
[2017-07-18] MEDS: LEVOTHYROXINE 75MCG TABLET (0.075MG) PO (05:51)
[2017-07-18] MEDS: LABETALOL 100 MG TAB PO ×2 (08:11→20:30)
[2017-07-18] MEDS: LACTULOSE 20 GM/30 ML SYRUP UD PO (08:11)
[2017-07-18] MEDS: amLODIPine 5 MG TAB PO (08:12)
[2017-07-18] MEDS: SENOKOT S TAB PO ×2 (08:12→20:29)
[2017-07-18] MEDS: PANTOPRAZOLE 40MG TAB (PROTONIX) PO (08:12)
[2017-07-18] MEDS: (RENVELA) SEVELAMER **CARBONate** 800 MG TAB PO ×2 (08:12→11:17)
[2017-07-18] MEDS: cloNIDine 0.1 MG TAB PO ×3 (08:13→22:23)
[2017-07-18] MEDS: ASPIRIN 81 MG ENTERIC TAB PO ×2 (08:13→20:28)
[2017-07-18] MEDS: IPRATROPIUM 0.06% NASAL SPRAY 15 ML (ATROVENT) ×2 (09:00→20:30)
[2017-07-18] MEDS: BRIMONIDINE 0.15% OPHTH SOLN 5 ML OS ×2 (09:00→20:30)
[2017-07-18] MEDS: **hydrALAZINE** 10 MG TAB PO ×3 (11:18→20:28)
[2017-07-18] MEDS: WARFARIN SOD 3 MG TAB PO (16:11)
[2017-07-18] MEDS: ISOSORBIDE MON. (IMDUR) 30 MG XR TAB PO (17:10)
[2017-07-18] MEDS: SPIRONOLACTONE 12.5MG PER 1/2 TABLET PO (18:05)
[2017-07-18] MEDS: FINASTERIDE 5 MG TAB PO (20:28)
[2017-07-18] MEDS: TAMSULOSIN 0.4 MG CAP PO (20:29)
[2017-07-18] MEDS ORDERED: cloNIDine 0.1 MG TAB PO (21:00)
[2017-07-19] MEDS: MORPHINE 4 MG/ML 1ML VIAL/SYRINGE (J2270) IV (02:57)
[2017-07-19 04:41] LABS: HEMATOCRIT 30.8 % (42.0-52.0); HEMOGLOBIN 10.2 g/dl (13.5-17.5); MEAN CORPUSCULAR HEMOGLOBIN 32.8 pg (27.0-33.0); MEAN CORPUSCULAR HGB CONC 33.1 g/dl (32.0-36.5); PLATELET COUNT, AUTOMATED 205 10^3/uL (150-450); RED BLOOD COUNT 3.11 10^6/uL (4.30-6.10); RED CELL DISTRIBUTION WIDTH 14.8 % (11.5-14.5); WHITE BLOOD COUNT 10.7 10^3/uL (4.0-10.0)
[2017-07-19 05:01] LABS: ANION GAP 8 MEQ/L (8-16); BLOOD UREA NITROGEN 62 MG/DL (7-18); CALCIUM LEVEL 8.7 MG/DL (8.8-10.2); CARBON DIOXIDE LEVEL 26 MEQ/L (21-32); CHLORIDE LEVEL 99 MEQ/L (98-107); CREATININE FOR GFR 4.76 MG/DL (0.70-1.30); GLOMERULAR FILTRATION RATE 12.5 (>35); GLUCOSE, FASTING 98 MG/DL (70-100); POTASSIUM SERUM 4.5 MEQ/L (3.5-5.1); SODIUM LEVEL 133 MEQ/L (136-145)
[2017-07-19 05:09] LABS: INR 2.32; PROTHROMBIN TIME 26.4 SECONDS (12.4-14.5)
[2017-07-19] MEDS: ISOSORBIDE MON. (IMDUR) 30 MG XR TAB PO ×2 (05:52→17:44)
[2017-07-19] MEDS: cloNIDine 0.1 MG TAB PO (05:52)
[2017-07-19] MEDS: LEVOTHYROXINE 75MCG TABLET (0.075MG) PO (05:52)
[2017-07-19] MEDS: LABETALOL 100 MG TAB PO (08:14)
[2017-07-19] MEDS: LACTULOSE 20 GM/30 ML SYRUP UD PO (08:24)
[2017-07-19] MEDS: (RENVELA) SEVELAMER **CARBONate** 800 MG TAB PO ×2 (08:25→11:35)
[2017-07-19] MEDS: **hydrALAZINE** 10 MG TAB PO ×3 (08:25→20:31)
[2017-07-19] MEDS: SENOKOT S TAB PO ×2 (08:26→20:30)
[2017-07-19] MEDS: ASPIRIN 81 MG ENTERIC TAB PO ×2 (08:26→20:32)
[2017-07-19] MEDS: PANTOPRAZOLE 40MG TAB (PROTONIX) PO (08:26)
[2017-07-19] MEDS: IPRATROPIUM 0.06% NASAL SPRAY 15 ML (ATROVENT) ×2 (08:28→20:32)
[2017-07-19] MEDS: BRIMONIDINE 0.15% OPHTH SOLN 5 ML OS ×2 (08:28→20:32)
[2017-07-19] MEDS: CARVedilol 12.5 MG TAB PO ×2 (09:00→20:31)
[2017-07-19] MEDS: BISACODYL 10 MG SUPP PR (10:38)
[2017-07-19] MEDS: SPIRONOLACTONE 25 MG TAB PO ×2 (11:35→17:44)
[2017-07-19] MEDS: HEPARIN 1,000 UNITS/ML 10ML VIAL (FOR RADIOLOGY& DIALYSIS ONLY) IV (12:00)
[2017-07-19] MEDS: HEPARIN 1,000 UNITS/ML 10ML VIAL (FOR RADIOLOGY& DIALYSIS ONLY) XX (12:00)
[2017-07-19] MEDS: ACETAMINOPHEN TAB 650MG DOSE (2X325MG) PO ×2 (17:43→23:43)
[2017-07-19] MEDS: WARFARIN SOD 3 MG TAB PO (17:43)
[2017-07-19] MEDS: TAMSULOSIN 0.4 MG CAP PO (20:30)
[2017-07-19] MEDS: FINASTERIDE 5 MG TAB PO (20:32)
[2017-07-20 05:09] LABS: HEMATOCRIT 34.5 % (42.0-52.0); HEMOGLOBIN 11.3 g/dl (13.5-17.5); MEAN CORPUSCULAR HEMOGLOBIN 32.2 pg (27.0-33.0); MEAN CORPUSCULAR HGB CONC 32.8 g/dl (32.0-36.5); MEAN CORPUSCULAR VOLUME 98.3 fl (80.0-96.0); PLATELET COUNT, AUTOMATED 219 10^3/uL (150-450); RED BLOOD COUNT 3.51 10^6/uL (4.30-6.10); RED CELL DISTRIBUTION WIDTH 14.6 % (11.5-14.5); WHITE BLOOD COUNT 7.9 10^3/uL (4.0-10.0)
[2017-07-20 05:19] LABS: INR 1.96
[2017-07-20 05:23] LABS: ANION GAP 9 MEQ/L (8-16); BLOOD UREA NITROGEN 43 MG/DL (7-18); CALCIUM LEVEL 8.6 MG/DL (8.8-10.2); CARBON DIOXIDE LEVEL 26 MEQ/L (21-32); CHLORIDE LEVEL 99 MEQ/L (98-107); CREATININE FOR GFR 3.21 MG/DL (0.70-1.30); GLOMERULAR FILTRATION RATE 19.7 (>35); GLUCOSE, FASTING 86 MG/DL (70-100); POTASSIUM SERUM 3.9 MEQ/L (3.5-5.1); SODIUM LEVEL 134 MEQ/L (136-145)
[2017-07-20] MEDS: ISOSORBIDE MON. (IMDUR) 30 MG XR TAB PO ×2 (05:42→18:07)
[2017-07-20] MEDS: LEVOTHYROXINE 75MCG TABLET (0.075MG) PO (05:42)
[2017-07-20] MEDS: LACTULOSE 20 GM/30 ML SYRUP UD PO (09:23)
[2017-07-20] MEDS: (RENVELA) SEVELAMER **CARBONate** 800 MG TAB PO ×2 (09:23→12:40)
[2017-07-20] MEDS: SENOKOT S TAB PO ×2 (09:24→20:07)
[2017-07-20] MEDS: SPIRONOLACTONE 25 MG TAB PO ×2 (09:25→16:46)
[2017-07-20] MEDS: PANTOPRAZOLE 40MG TAB (PROTONIX) PO (09:25)
[2017-07-20] MEDS: **hydrALAZINE** 10 MG TAB PO ×3 (09:25→20:06)
[2017-07-20] MEDS: CARVedilol 12.5 MG TAB PO ×2 (09:25→20:07)
[2017-07-20] MEDS: ASPIRIN 81 MG ENTERIC TAB PO ×2 (09:25→20:06)
[2017-07-20] MEDS: BRIMONIDINE 0.15% OPHTH SOLN 5 ML OS ×2 (09:26→20:07)
[2017-07-20] MEDS: IPRATROPIUM 0.06% NASAL SPRAY 15 ML (ATROVENT) ×2 (09:26→21:00)
[2017-07-20] MEDS: WARFARIN SOD 3 MG TAB PO (16:44)
[2017-07-20] MEDS: TAMSULOSIN 0.4 MG CAP PO (20:07)
[2017-07-20] MEDS: FINASTERIDE 5 MG TAB PO (20:07)
[2017-07-21] MEDS: ACETAMINOPHEN TAB 650MG DOSE (2X325MG) PO (05:21)
[2017-07-21] MEDS: ISOSORBIDE MON. (IMDUR) 30 MG XR TAB PO ×2 (05:22→17:09)
[2017-07-21] MEDS: LEVOTHYROXINE 75MCG TABLET (0.075MG) PO (05:22)
[2017-07-21 05:56] LABS: HEMATOCRIT 34.3 % (42.0-52.0); HEMOGLOBIN 11.3 g/dl (13.5-17.5); MEAN CORPUSCULAR HEMOGLOBIN 31.9 pg (27.0-33.0); MEAN CORPUSCULAR HGB CONC 32.9 g/dl (32.0-36.5); MEAN CORPUSCULAR VOLUME 96.9 fl (80.0-96.0); PLATELET COUNT, AUTOMATED 229 10^3/uL (150-450); RED BLOOD COUNT 3.54 10^6/uL (4.30-6.10); RED CELL DISTRIBUTION WIDTH 14.4 % (11.5-14.5); WHITE BLOOD COUNT 7.3 10^3/uL (4.0-10.0)
[2017-07-21 06:05] LABS: INR 2.39
[2017-07-21 06:10] LABS: ANION GAP 11 MEQ/L (8-16); BLOOD UREA NITROGEN 65 MG/DL (7-18); CARBON DIOXIDE LEVEL 23 MEQ/L (21-32); CHLORIDE LEVEL 99 MEQ/L (98-107); CREATININE FOR GFR 4.51 MG/DL (0.70-1.30); GLOMERULAR FILTRATION RATE 13.3 (>35); GLUCOSE, FASTING 89 MG/DL (70-100); POTASSIUM SERUM 4.7 MEQ/L (3.5-5.1); SODIUM LEVEL 133 MEQ/L (136-145)
[2017-07-21] MEDS: (RENVELA) SEVELAMER **CARBONate** 800 MG TAB PO ×2 (08:37→11:58)
[2017-07-21] MEDS: ASPIRIN 81 MG ENTERIC TAB PO ×2 (08:37→20:12)
[2017-07-21] MEDS: SPIRONOLACTONE 25 MG TAB PO ×2 (08:38→16:00)
[2017-07-21] MEDS: PANTOPRAZOLE 40MG TAB (PROTONIX) PO (08:38)
[2017-07-21] MEDS: **hydrALAZINE** 50 MG TAB PO ×3 (08:38→20:12)
[2017-07-21] MEDS: CARVedilol 12.5 MG TAB PO ×2 (08:38→20:12)
[2017-07-21] MEDS: SENOKOT S TAB PO ×2 (08:38→20:10)
[2017-07-21] MEDS: BRIMONIDINE 0.15% OPHTH SOLN 5 ML OS ×2 (08:39→20:12)
[2017-07-21] MEDS: IPRATROPIUM 0.06% NASAL SPRAY 15 ML (ATROVENT) ×2 (08:39→20:12)
[2017-07-21] MEDS: LACTULOSE 20 GM/30 ML SYRUP UD PO (08:39)
[2017-07-21] MEDS: WARFARIN SOD 3 MG TAB PO (16:00)
[2017-07-21] MEDS: TAMSULOSIN 0.4 MG CAP PO (20:12)
[2017-07-21] MEDS: FINASTERIDE 5 MG TAB PO (20:12)
[2017-07-22 05:46] LABS: HEMATOCRIT 36.1 % (42.0-52.0); HEMOGLOBIN 12.3 g/dl (13.5-17.5); MEAN CORPUSCULAR HEMOGLOBIN 32.4 pg (27.0-33.0); MEAN CORPUSCULAR HGB CONC 34.1 g/dl (32.0-36.5); PLATELET COUNT, AUTOMATED 264 10^3/uL (150-450); RED CELL DISTRIBUTION WIDTH 14.6 % (11.5-14.5); WHITE BLOOD COUNT 9.7 10^3/uL (4.0-10.0)
[2017-07-22] MEDS: ISOSORBIDE MON. (IMDUR) 30 MG XR TAB PO ×2 (05:47→18:11)
[2017-07-22] MEDS: LEVOTHYROXINE 75MCG TABLET (0.075MG) PO (05:48)
[2017-07-22 05:58] LABS: INR 2.56; PROTHROMBIN TIME 28.6 SECONDS (12.4-14.5)
[2017-07-22 06:11] LABS: ANION GAP 12 MEQ/L (8-16); BLOOD UREA NITROGEN 94 MG/DL (7-18); CALCIUM LEVEL 9.1 MG/DL (8.8-10.2); CARBON DIOXIDE LEVEL 22 MEQ/L (21-32); CHLORIDE LEVEL 96 MEQ/L (98-107); CREATININE FOR GFR 5.63 MG/DL (0.70-1.30); GLOMERULAR FILTRATION RATE 10.3 (>35); GLUCOSE, FASTING 88 MG/DL (70-100); POTASSIUM SERUM 5.1 MEQ/L (3.5-5.1); SODIUM LEVEL 130 MEQ/L (136-145)
[2017-07-22] MEDS: CARVedilol 12.5 MG TAB PO ×2 (07:53→21:03)
[2017-07-22] MEDS: SENOKOT S TAB PO ×2 (07:54→21:02)
[2017-07-22] MEDS: LACTULOSE 20 GM/30 ML SYRUP UD PO (07:54)
[2017-07-22] MEDS: SPIRONOLACTONE 25 MG TAB PO ×2 (07:54→16:35)
[2017-07-22] MEDS: PANTOPRAZOLE 40MG TAB (PROTONIX) PO (07:54)
[2017-07-22] MEDS: **hydrALAZINE** 50 MG TAB PO ×3 (07:54→21:02)
[2017-07-22] MEDS: (RENVELA) SEVELAMER **CARBONate** 800 MG TAB PO ×2 (07:54→12:00)
[2017-07-22] MEDS: ASPIRIN 81 MG ENTERIC TAB PO ×2 (07:55→21:02)
[2017-07-22] MEDS: BRIMONIDINE 0.15% OPHTH SOLN 5 ML OS ×2 (07:55→21:02)
[2017-07-22] MEDS ORDERED: PILL CRUSHER/CUTTER 1 EACH XX (08:15)
[2017-07-22] MEDS: IPRATROPIUM 0.06% NASAL SPRAY 15 ML (ATROVENT) ×3 (09:00→21:02)
[2017-07-22] MEDS: HEPARIN 1,000 UNITS/ML 10ML VIAL (FOR RADIOLOGY& DIALYSIS ONLY) XX (11:00)
[2017-07-22] MEDS: HEPARIN 1,000 UNITS/ML 10ML VIAL (FOR RADIOLOGY& DIALYSIS ONLY) IV (11:00)
[2017-07-22] MEDS: WARFARIN SOD 3 MG TAB PO (16:35)
[2017-07-22] MEDS: TAMSULOSIN 0.4 MG CAP PO (21:02)
[2017-07-22] MEDS: FINASTERIDE 5 MG TAB PO (21:03)
[2017-07-23] MEDS: LEVOTHYROXINE 75MCG TABLET (0.075MG) PO (05:32)
[2017-07-23] MEDS: ISOSORBIDE MON. (IMDUR) 30 MG XR TAB PO ×2 (05:33→18:03)
[2017-07-23 05:54] LABS: HEMATOCRIT 34.3 % (42.0-52.0); HEMOGLOBIN 11.5 g/dl (13.5-17.5); MEAN CORPUSCULAR HGB CONC 33.5 g/dl (32.0-36.5); MEAN CORPUSCULAR VOLUME 95.5 fl (80.0-96.0); PLATELET COUNT, AUTOMATED 232 10^3/uL (150-450); RED BLOOD COUNT 3.59 10^6/uL (4.30-6.10); RED CELL DISTRIBUTION WIDTH 14.4 % (11.5-14.5); WHITE BLOOD COUNT 15.4 10^3/uL (4.0-10.0)
[2017-07-23 06:01] LABS: INR 2.27; PROTHROMBIN TIME 25.9 SECONDS (12.4-14.5)
[2017-07-23 06:10] LABS: ANION GAP 11 MEQ/L (8-16); BLOOD UREA NITROGEN 65 MG/DL (7-18); CALCIUM LEVEL 9.1 MG/DL (8.8-10.2); CARBON DIOXIDE LEVEL 26 MEQ/L (21-32); CHLORIDE LEVEL 103 MEQ/L (98-107); GLOMERULAR FILTRATION RATE 16.2 (>35); GLUCOSE, FASTING 86 MG/DL (70-100); POTASSIUM SERUM 4.5 MEQ/L (3.5-5.1); SODIUM LEVEL 140 MEQ/L (136-145)
[2017-07-23 07:47] LABS: C REACTIVE PROTEIN QUANTITATIV 2.51 MG/DL (0.00-0.30)
[2017-07-23] MEDS: SPIRONOLACTONE 25 MG TAB PO ×2 (08:16→16:37)
[2017-07-23] MEDS: **hydrALAZINE** 50 MG TAB PO ×3 (08:16→20:33)
[2017-07-23] MEDS: ASPIRIN 81 MG ENTERIC TAB PO ×2 (08:16→20:33)
[2017-07-23] MEDS: LACTULOSE 20 GM/30 ML SYRUP UD PO (08:16)
[2017-07-23] MEDS: (RENVELA) SEVELAMER **CARBONate** 800 MG TAB PO ×2 (08:16→12:00)
[2017-07-23] MEDS: PANTOPRAZOLE 40MG TAB (PROTONIX) PO (08:16)
[2017-07-23] MEDS: SENOKOT S TAB PO ×2 (08:17→20:31)
[2017-07-23] MEDS: CARVedilol 12.5 MG TAB PO ×2 (08:17→20:32)
[2017-07-23] MEDS: IPRATROPIUM 0.06% NASAL SPRAY 15 ML (ATROVENT) ×2 (08:17→20:33)
[2017-07-23] MEDS: BRIMONIDINE 0.15% OPHTH SOLN 5 ML OS ×2 (08:17→20:33)
[2017-07-23 10:13] LABS: KETONE, URINE AUTO RFX NEGATIVE (NEGATIVE); NITRITE, URINE AUTO RFX NEGATIVE (NEGATIVE); RBC, URINE AUTO RFX 22 /HPF (0-3); SQUAM EPITHELIAL CELL UR AURFX 0 /HPF (0-6); WBC, URINE AUTO RFX 7 /HPF (0-3)
[2017-07-23 10:18] LABS: LEUKOCYTE ESTERASE UR AUTO RFX 1+ (NEGATIVE)
[2017-07-23] MEDS: WARFARIN SOD 3 MG TAB PO (16:37)
[2017-07-23] MEDS: FINASTERIDE 5 MG TAB PO (20:32)
[2017-07-23] MEDS: TAMSULOSIN 0.4 MG CAP PO (20:32)
[2017-07-24] MEDS: ACETAMINOPHEN TAB 650MG DOSE (2X325MG) PO ×2 (00:02→16:11)
[2017-07-24 05:12] LABS: HEMOGLOBIN 10.7 g/dl (13.5-17.5); MEAN CORPUSCULAR HEMOGLOBIN 32.2 pg (27.0-33.0); MEAN CORPUSCULAR HGB CONC 33.4 g/dl (32.0-36.5); MEAN CORPUSCULAR VOLUME 96.4 fl (80.0-96.0); PLATELET COUNT, AUTOMATED 227 10^3/uL (150-450); RED BLOOD COUNT 3.32 10^6/uL (4.30-6.10); RED CELL DISTRIBUTION WIDTH 14.5 % (11.5-14.5); WHITE BLOOD COUNT 7.5 10^3/uL (4.0-10.0)
[2017-07-24 05:27] LABS: INR 2.37; PROTHROMBIN TIME 26.8 SECONDS (12.4-14.5)
[2017-07-24 05:37] LABS: ANION GAP 11 MEQ/L (8-16); BLOOD UREA NITROGEN 92 MG/DL (7-18); CARBON DIOXIDE LEVEL 22 MEQ/L (21-32); CHLORIDE LEVEL 101 MEQ/L (98-107); GLOMERULAR FILTRATION RATE 11.3 (>35); GLUCOSE, FASTING 98 MG/DL (70-100); POTASSIUM SERUM 4.6 MEQ/L (3.5-5.1); SODIUM LEVEL 134 MEQ/L (136-145)
[2017-07-24] MEDS: SPIRONOLACTONE 25 MG TAB PO ×2 (06:05→16:09)
[2017-07-24] MEDS: PANTOPRAZOLE 40MG TAB (PROTONIX) PO (06:05)
[2017-07-24] MEDS: LACTULOSE 20 GM/30 ML SYRUP UD PO (06:05)
[2017-07-24] MEDS: ISOSORBIDE MON. (IMDUR) 30 MG XR TAB PO ×2 (06:06→17:40)
[2017-07-24] MEDS: (RENVELA) SEVELAMER **CARBONate** 800 MG TAB PO ×2 (06:07→12:42)
[2017-07-24] MEDS: LEVOTHYROXINE 75MCG TABLET (0.075MG) PO (06:07)
[2017-07-24] MEDS: SENOKOT S TAB PO ×2 (06:08→20:40)
[2017-07-24] MEDS: CARVedilol 12.5 MG TAB PO ×2 (06:08→20:41)
[2017-07-24] MEDS: **hydrALAZINE** 50 MG TAB PO ×3 (06:08→20:42)
[2017-07-24] MEDS: ASPIRIN 81 MG ENTERIC TAB PO ×2 (06:08→20:41)
[2017-07-24] MEDS: BRIMONIDINE 0.15% OPHTH SOLN 5 ML OS ×2 (06:09→20:42)
[2017-07-24] MEDS: IPRATROPIUM 0.06% NASAL SPRAY 15 ML (ATROVENT) ×2 (06:09→20:42)
[2017-07-24] MEDS: HEPARIN 1,000 UNITS/ML 10ML VIAL (FOR RADIOLOGY& DIALYSIS ONLY) XX (10:00)
[2017-07-24] MEDS: HEPARIN 1,000 UNITS/ML 10ML VIAL (FOR RADIOLOGY& DIALYSIS ONLY) IV (10:00)
[2017-07-24] MEDS ORDERED: GENTAMICIN 80 MG in APPROPRIATE DILUENT 1 EA IV (13:45)
[2017-07-24] MEDS: GENTAMICIN 80 MG in APPROPRIATE DILUENT 1 EA IV (13:53)
[2017-07-24] MEDS: WARFARIN SOD 3 MG TAB PO (16:10)
[2017-07-24] MEDS: FINASTERIDE 5 MG TAB PO (20:41)
[2017-07-24] MEDS: TAMSULOSIN 0.4 MG CAP PO (20:41)
[2017-07-24] MEDS: BISACODYL 10 MG SUPP PR (23:24)
[2017-07-25] MEDS: hydrALAZINE INJ 20 MG/ML VIAL IV (01:41)
[2017-07-25] MEDS: ISOSORBIDE MON. (IMDUR) 30 MG XR TAB PO (06:19)
[2017-07-25] MEDS: LEVOTHYROXINE 75MCG TABLET (0.075MG) PO (06:19)
[2017-07-25 06:30] LABS: HEMOGLOBIN 11.7 g/dl (13.5-17.5); MEAN CORPUSCULAR HEMOGLOBIN 32.1 pg (27.0-33.0); MEAN CORPUSCULAR HGB CONC 33.4 g/dl (32.0-36.5); MEAN CORPUSCULAR VOLUME 95.9 fl (80.0-96.0); PLATELET COUNT, AUTOMATED 260 10^3/uL (150-450); RED BLOOD COUNT 3.65 10^6/uL (4.30-6.10); RED CELL DISTRIBUTION WIDTH 14.5 % (11.5-14.5); WHITE BLOOD COUNT 6.6 10^3/uL (4.0-10.0)
[2017-07-25 06:40] LABS: INR 2.37; PROTHROMBIN TIME 26.8 SECONDS (12.4-14.5)
[2017-07-25 06:48] LABS: ANION GAP 9 MEQ/L (8-16); BLOOD UREA NITROGEN 63 MG/DL (7-18); CALCIUM LEVEL 9.2 MG/DL (8.8-10.2); CARBON DIOXIDE LEVEL 26 MEQ/L (21-32); CHLORIDE LEVEL 100 MEQ/L (98-107); CREATININE FOR GFR 3.49 MG/DL (0.70-1.30); GLOMERULAR FILTRATION RATE 17.9 (>35); GLUCOSE, FASTING 89 MG/DL (70-100); MAGNESIUM LEVEL 1.9 MG/DL (1.8-2.4); SODIUM LEVEL 135 MEQ/L (136-145)
[2017-07-25] MEDS: ASPIRIN 81 MG ENTERIC TAB PO (10:04)
[2017-07-25] MEDS: SENOKOT S TAB PO (10:04)
[2017-07-25] MEDS: PANTOPRAZOLE 40MG TAB (PROTONIX) PO (10:04)
[2017-07-25] MEDS: SPIRONOLACTONE 25 MG TAB PO (10:04)
[2017-07-25] MEDS: (RENVELA) SEVELAMER **CARBONate** 800 MG TAB PO (10:04)
[2017-07-25] MEDS: **hydrALAZINE** 50 MG TAB PO (10:05)
[2017-07-25] MEDS: LACTULOSE 20 GM/30 ML SYRUP UD PO (10:06)
[2017-07-25] MEDS: BRIMONIDINE 0.15% OPHTH SOLN 5 ML OS (10:06)
[2017-07-25] MEDS: IPRATROPIUM 0.06% NASAL SPRAY 15 ML (ATROVENT) (10:06)
[2017-07-25] MEDS: CARVedilol 12.5 MG TAB PO (10:06)
== END 2017-07-25 12:02 | DRG 280 ==
LOC: M PCU 07-19 17:05 → M ED 07:54 → M ED INP 10:56 → M ICU 15:00
PROC: 5A1D70Z Performance of Urinary Filtration, Intermittent, Less than 6 Hours Per Day (ICD-10-PCS; principal; 2017-07-16)
DX: I21.4 Non-ST elevation (NSTEMI) myocardial infarction (principal); N18.6 End stage renal disease; J96.01 Acute respiratory failure with hypoxia; I50.43 Acute on chronic combined systolic (congestive) and diastolic (congestive) heart failure; E87.1 Hypo-osmolality and hyponatremia; N39.0 Urinary tract infection, site not specified; I69.359 Hemiplegia and hemiparesis following cerebral infarction affecting unspecified side; I13.2 Hypertensive heart and chronic kidney disease with heart failure and with stage 5 chronic kidney disease, or end stage renal disease; I16.0 Hypertensive urgency; N40.1 Benign prostatic hyperplasia with lower urinary tract symptoms; B95.2 Enterococcus as the cause of diseases classified elsewhere; N13.9 Obstructive and reflux uropathy, unspecified; K59.09 Other constipation; I25.10 Atherosclerotic heart disease of native coronary artery without angina pectoris; K21.9 Gastro-esophageal reflux disease without esophagitis; F32.9 Major depressive disorder, single episode, unspecified; E03.9 Hypothyroidism, unspecified; D63.1 Anemia in chronic kidney disease; Z88.0 Allergy status to penicillin; Z93.6 Other artificial openings of urinary tract status; Z66 Do not resuscitate; Z86.718 Personal history of other venous thrombosis and embolism; I25.2 Old myocardial infarction; Z99.2 Dependence on renal dialysis

== ENCOUNTER → 2017-08-01 | Outpatient (REF) ==
[2017-08-01 08:52] LABS: HEMATOCRIT 34.6 % (42.0-52.0); HEMOGLOBIN 11.5 g/dl (13.5-17.5); MEAN CORPUSCULAR HEMOGLOBIN 31.8 pg (27.0-33.0); MEAN CORPUSCULAR HGB CONC 33.2 g/dl (32.0-36.5); MEAN CORPUSCULAR VOLUME 95.6 fl (80.0-96.0); PLATELET COUNT, AUTOMATED 261 10^3/uL (150-450); RED BLOOD COUNT 3.62 10^6/uL (4.30-6.10); RED CELL DISTRIBUTION WIDTH 14.7 % (11.5-14.5); WHITE BLOOD COUNT 7.5 10^3/uL (4.0-10.0)
[2017-08-01 09:16] LABS: ANION GAP 12 MEQ/L (8-16); BLOOD UREA NITROGEN 62 MG/DL (7-18); CALCIUM LEVEL 9.1 MG/DL (8.8-10.2); CARBON DIOXIDE LEVEL 27 MEQ/L (21-32); CHLORIDE LEVEL 97 MEQ/L (98-107); CREATININE FOR GFR 3.26 MG/DL (0.70-1.30); GLOMERULAR FILTRATION RATE 19.3 (>35); GLUCOSE, FASTING 90 MG/DL (70-100); POTASSIUM SERUM 4.6 MEQ/L (3.5-5.1); SODIUM LEVEL 136 MEQ/L (136-145)
== END ==
DX: N18.9 Chronic kidney disease, unspecified (principal); I12.9 Hypertensive chronic kidney disease with stage 1 through stage 4 chronic kidney disease, or unspecified chronic kidney disease

== ENCOUNTER → 2017-08-15 | Outpatient (REF) ==
[2017-08-15 10:25] LABS: HEMATOCRIT 28.4 % (42.0-52.0); HEMOGLOBIN 9.7 g/dl (13.5-17.5); MEAN CORPUSCULAR HGB CONC 34.2 g/dl (32.0-36.5); MEAN CORPUSCULAR VOLUME 93.7 fl (80.0-96.0); PLATELET COUNT, AUTOMATED 223 10^3/uL (150-450); RED BLOOD COUNT 3.03 10^6/uL (4.30-6.10); RED CELL DISTRIBUTION WIDTH 15.3 % (11.5-14.5); WHITE BLOOD COUNT 6.7 10^3/uL (4.0-10.0)
[2017-08-15 10:57] LABS: ANION GAP 13 MEQ/L (8-16); BLOOD UREA NITROGEN 85 MG/DL (7-18); CARBON DIOXIDE LEVEL 27 MEQ/L (21-32); CHLORIDE LEVEL 95 MEQ/L (98-107); CREATININE FOR GFR 4.03 MG/DL (0.70-1.30); GLOMERULAR FILTRATION RATE 15.1 (>35); GLUCOSE, FASTING 110 MG/DL (70-100); POTASSIUM SERUM 4.7 MEQ/L (3.5-5.1); SODIUM LEVEL 135 MEQ/L (136-145)
== END ==
DX: N18.9 Chronic kidney disease, unspecified (principal); I12.9 Hypertensive chronic kidney disease with stage 1 through stage 4 chronic kidney disease, or unspecified chronic kidney disease

== ENCOUNTER → 2017-09-03 | Outpatient (CLI) | payer MEDICARE, OTHER ==
[~2017-09-03] MED LIST changes: +CIPROFLOXACIN 500 MG TAB As Ordered; +ISOVUE-300 61% 50ML VIAL (Q9967) As Ordered; -LEVOTHYROXINE 75MCG TABLET (0.075MG) PO; +LIDOCAINE 1% MDV 20ML VIAL As Ordered
== END ==
LOC: M RADPRO 11:21
DX: N13.30 Unspecified hydronephrosis (principal); N18.6 End stage renal disease; Z79.899 Other long term (current) drug therapy; Z79.01 Long term (current) use of anticoagulants; Z88.0 Allergy status to penicillin
CPT/HCPCS: 50435

== ENCOUNTER → 2017-09-07 | Outpatient (CLI) | payer MEDICARE, SELFPAY, OTHER ==
[2017-09-08 04:40] LABS: APPEARANCE, URINE CLOUDY (CLEAR); BACTERIA, URINE AUTO 1+ (NEGATIVE); BILIRUBIN, URINE AUTO NEGATIVE (NEGATIVE); BLOOD, URINE BLOOD 1+ (NEGATIVE); COLOR, URINE YELLOW (YELLOW); GLUCOSE, URINE (UA) AUTO 1+ mg/dL (NEGATIVE); KETONE, URINE AUTO NEGATIVE (NEGATIVE); LEUKOCYTE ESTERASE, URINE AUTO 3+ (NEGATIVE); MUCUS, URINE SMALL (NEGATIVE); NITRITE, URINE AUTO NEGATIVE (NEGATIVE); PROTEIN, URINE AUTO 3+ mg/dL (NEGATIVE); RBC, URINE AUTO 8 /HPF (0-3); SQUAMOUS EPITHELIAL CELL UR AU 0 /HPF (0-6); UROBILINOGEN, URINE AUTO 0.2 mg/dL (0.0-2.0); WBC, URINE AUTO 24 /HPF (0-3)
== END ==
LOC: M LAB 23:18 → M LAB REF 19:00
DX: R39.89 Other symptoms and signs involving the genitourinary system (principal)
CPT/HCPCS: 81001

== ENCOUNTER → 2017-09-10 | Outpatient (REF) ==
[2017-09-10 10:59] LABS: INR 3.08; PROTHROMBIN TIME 32.5 SECONDS (12.1-14.4)
== END ==
DX: Z79.01 Long term (current) use of anticoagulants (principal)

== ENCOUNTER → 2017-09-11 | Outpatient (REF) ==
[2017-09-11 13:40] LABS: HEMATOCRIT 29.1 % (42.0-52.0); HEMOGLOBIN 9.8 g/dl (13.5-17.5); MEAN CORPUSCULAR HEMOGLOBIN 31.8 pg (27.0-33.0); MEAN CORPUSCULAR HGB CONC 33.7 g/dl (32.0-36.5); MEAN CORPUSCULAR VOLUME 94.5 fl (80.0-96.0); PLATELET COUNT, AUTOMATED 226 10^3/uL (150-450); RED BLOOD COUNT 3.08 10^6/uL (4.30-6.10); RED CELL DISTRIBUTION WIDTH 15.8 % (11.5-14.5); WHITE BLOOD COUNT 4.9 10^3/uL (4.0-10.0)
[2017-09-11 13:47] LABS: INR 3.38
== END ==
DX: I51.7 Cardiomegaly (principal)

== ENCOUNTER → 2017-09-12 | Outpatient (REF) ==
[2017-09-12 11:38] LABS: INR 2.53; PROTHROMBIN TIME 27.8 SECONDS (12.1-14.4)
== END ==
DX: Z79.01 Long term (current) use of anticoagulants (principal)

== ENCOUNTER → 2017-09-17 | Outpatient (REF) ==
[2017-09-17 11:29] LABS: INR 3.74; PROTHROMBIN TIME 37.9 SECONDS (12.1-14.4)
== END ==
DX: Z79.01 Long term (current) use of anticoagulants (principal)

== ENCOUNTER → 2017-09-18 | Outpatient (REF) ==
[2017-09-18 20:35] LABS: INR 3.13; PROTHROMBIN TIME 32.9 SECONDS (12.1-14.4)
== END ==
DX: Z79.01 Long term (current) use of anticoagulants (principal)

== ENCOUNTER → 2017-09-19 | Outpatient (REF) ==
[2017-09-19 10:02] LABS: HEMATOCRIT 29.4 % (42.0-52.0); HEMOGLOBIN 9.6 g/dl (13.5-17.5); MEAN CORPUSCULAR HEMOGLOBIN 31.2 pg (27.0-33.0); MEAN CORPUSCULAR HGB CONC 32.7 g/dl (32.0-36.5); MEAN CORPUSCULAR VOLUME 95.5 fl (80.0-96.0); PLATELET COUNT, AUTOMATED 223 10^3/uL (150-450); RED BLOOD COUNT 3.08 10^6/uL (4.30-6.10); RED CELL DISTRIBUTION WIDTH 16.8 % (11.5-14.5)
[2017-09-19 10:24] LABS: INR 2.45; PROTHROMBIN TIME 27.1 SECONDS (12.1-14.4)
[2017-09-19 10:31] LABS: ANION GAP 11 MEQ/L (8-16); BLOOD UREA NITROGEN 29 MG/DL (7-18); CALCIUM LEVEL 9.3 MG/DL (8.8-10.2); CARBON DIOXIDE LEVEL 29 MEQ/L (21-32); CHLORIDE LEVEL 95 MEQ/L (98-107); CREATININE FOR GFR 3.44 MG/DL (0.70-1.30); GLOMERULAR FILTRATION RATE 18.2 (>35); GLUCOSE, FASTING 86 MG/DL (70-100); POTASSIUM SERUM 4.1 MEQ/L (3.5-5.1); SODIUM LEVEL 135 MEQ/L (136-145)
== END ==
DX: I10 Essential (primary) hypertension (principal); N18.6 End stage renal disease

== ENCOUNTER → 2017-11-12 | Outpatient (CLI) | payer MEDICARE, OTHER | LOC: M RADPRO 12:26 | DX: N13.30 Unspecified hydronephrosis (principal); N18.6 End stage renal disease; Z99.2 Dependence on renal dialysis; D64.9 Anemia, unspecified; M12.9 Arthropathy, unspecified; Z85.46 Personal history of malignant neoplasm of prostate; Z79.01 Long term (current) use of anticoagulants; Z79.899 Other long term (current) drug therapy; Z88.0 Allergy status to penicillin | CPT/HCPCS: 50435 ==

== ENCOUNTER → 2018-01-28 | Outpatient (CLI) | payer MEDICARE, OTHER ==
[~2018-01-28] MED LIST changes: +LIDOCAINE 2% MDV 20 ML VIAL As Ordered
== END ==
LOC: M RADPRO 12:11
DX: N13.30 Unspecified hydronephrosis (principal); N18.6 End stage renal disease; Z88.0 Allergy status to penicillin; Z79.899 Other long term (current) drug therapy; Z79.01 Long term (current) use of anticoagulants
CPT/HCPCS: 50435

== ENCOUNTER → 2018-04-15 | Outpatient (CLI) | payer MEDICARE, OTHER ==
[~2018-04-15] MED LIST changes: +ALDA25TA2 PO; +AMLO5TAB6 PO; +ARAN200I2 IV; +ASPI1TAB PO; +ASPI325T25 PO; +ASPI81TA24 PO; +BENZ-18 PO; +BISA10SU4 PR; +BRIM2OPD OS; +CAPT125TA PO; +CAPT1TAB18 PO; +CAPT50TA PO; +CAPTO25TA PO; +CARV12.5 PO; +CEFD300CAP PO; +CEFT1INJ39 IV; +CHIL81CH2 PO; -CIPROFLOXACIN 500 MG TAB As Ordered; +CIPROFLOXACIN 500 MG TAB As Ordered ONE; +CLON-412 PO; +CLONI1TA PO; +COLA100C5 PO; +CORE3.12 PO; +COUM1TAB14 PO; +COUM1TAB17 PO; +COUM2.5T17 PO; +DARB100SYR IV; +DOCU10CA PO; +ENEMENE6 PR; +FINA5TAB2 PO; +FLOM0.4C39 PO; +FLUTISP; +FOSR500C2 PO; +GUAI5EL PO; +HYDR-3911 PO; +HYDR50TA PO; +IMDU30TA PO; +IPRA6SP; +ISOS30TA4 PO; -ISOVUE-300 61% 50ML VIAL (Q9967) As Ordered; +ISOVUE-300 61% 50ML VIAL (Q9967) As Ordered ONE; +LABE10TAB PO; +LABE300T2 PO; +LACT10SO29 PO; +LEVA250T13 PO; +LEVO-86 PO; +LEVO50TA45 PO; -LIDOCAINE 1% MDV 20ML VIAL As Ordered; +LIDOCAINE 1% MDV 20ML VIAL As Ordered ONE; -LIDOCAINE 2% MDV 20 ML VIAL As Ordered; +LIPI20TA PO; +MAPA325T2 PO; +METO1TAB87 PO; +MICA5TAB PO; +MILK120011 PO; +MIRA3350 PO; +NITR4TASL SL; +PANT40TA3 PO; +PEG1POW PO; +PERCOCET PO; +PRED10TA2 PO; +PRED20TA PO; +PROS5TAB PO; +PROT1TAB2 PO; +RENATAB5 PO; +RENV2TAB PO; +SENN-23 PO; +SENN1TAB2 PO; +SENN8.6T7 PO; +TYLE325T5 PO; +WARF-18 PO; +WARF-20 PO; +WARF-60 PO; +[UNRECOGNIZED DRUG - CODE] IJ; +no home meds
--- NOTE | 2018-04-16 08:11 | REP ---
The procedure was performed under the direct supervision of Dr. Chaudhari CLINICAL HISTORY: Left hydronephrosis/end-stage renal disease PROCEDURE: Left nephrostomy drainage catheter exchange Medications: Cipro 250 mg orally EBL: Zero FLUORO TIME: 0.7 minutesCONTRAST: 10 ml of Isovue 300DEVICE USED: 10 F Nephrostomy (Resolve) catheter The risks and benefits of the procedure were explained to the patient and informed consent was obtained. The patient was brought into the interventional radiology suite. A time out procedure was performed. The patient was placed in the prone position . The existing indwelling catheter and the area surrounding the insertion site were prepped and draped in a sterile fashion. Contrast was injected through the existing left Nephrostomy catheter. Images demonstrate good catheter position. The existing catheter was unlocked and removed over the guide wire. A new 10 F Nephrostomy (Resolve) catheter was advanced over the guide wire. The guidewire was removed and the distal loop of the nephrostomy drainage catheter was formed and locked in the renal pelvis. Contrast was injected, confirming satisfactory drainage catheter position. The drainage catheter exit site was covered with sterile dressing. The nephrostomy drainage catheter was flushed and connected to gravity drainage bag. The patient tolerated the procedure well and there were no immediate complications. This procedure was performed using fluoroscopy. Impression: Successful exchange of nephrostomy urinary diversion tube on the left As discussed above. Plan: Routine catheter exchange in approximately 10-12 weeks or earlier if signs of tube dysfunction were to occur. Reviewed by NAGIE Garrison 04/15/2018 03:58 P Electronically Signed by Bharathi Chaudhari MD 04/16/2018 08:03 A
== END ==
LOC: M RADPRO 12:12
PROVIDERS: ATTEND Radiology Diagnostic Radiology
DX: N13.2 Hydronephrosis with renal and ureteral calculous obstruction (principal); N18.6 End stage renal disease
CPT/HCPCS: 50435; 75984; C1729; C1769; Q9967

== ENCOUNTER 2018-05-05 14:51 | Inpatient (IN) | payer MEDICARE, OTHER ==
[2018-05-05] VITALS (13 sets, daily range): BP systolic 86–126; BP diastolic 52–66
[~2018-05-05] VITALS: Ht 165.1 cm; Wt 53.6 kg
[~2018-05-05 14:51] MED LIST changes: -CIPROFLOXACIN 500 MG TAB As Ordered ONE; -ISOVUE-300 61% 50ML VIAL (Q9967) As Ordered ONE; -LIDOCAINE 1% MDV 20ML VIAL As Ordered ONE
[2018-05-05] MEDS ORDERED: DEXTROSE 50% 50 ML SYRINGE IV STA (15:04)
[2018-05-05 15:08] LABS: HEMATOCRIT 32.9 % (42.0-52.0); HEMOGLOBIN 10.9 g/dl (13.5-17.5); MEAN CORPUSCULAR HEMOGLOBIN 32.3 pg (27.0-33.0); MEAN CORPUSCULAR HGB CONC 33.1 g/dl (32.0-36.5); MEAN CORPUSCULAR VOLUME 97.6 fl (80.0-96.0); PLATELET COUNT, AUTOMATED 162 10^3/uL (150-450); RED BLOOD COUNT 3.37 10^6/uL (4.30-6.10); WHITE BLOOD COUNT 4.9 10^3/uL (4.0-10.0)
[2018-05-05] MEDS ORDERED: NS 500 ML IV ONE (15:15)
[2018-05-05 15:30] LABS: APPEARANCE, URINE CLOUDY (CLEAR); BACTERIA, URINE AUTO 1+ (NEGATIVE); BILIRUBIN, URINE AUTO NEGATIVE (NEGATIVE); BLOOD, URINE BLOOD 3+ (NEGATIVE); COLOR, URINE AMBER (YELLOW); GLUCOSE, URINE (UA) AUTO NEGATIVE (NEGATIVE); KETONE, URINE AUTO NEGATIVE (NEGATIVE); LEUKOCYTE ESTERASE, URINE AUTO 2+ (NEGATIVE); MUCUS, URINE SMALL (NEGATIVE); NITRITE, URINE AUTO NEGATIVE (NEGATIVE); PROTEIN, URINE AUTO 3+ mg/dL (NEGATIVE); RBC, URINE AUTO 170 /HPF (0-3); SPECIFIC GRAVITY URINE AUTO 1.011 (1.002-1.035); SQUAMOUS EPITHELIAL CELL UR AU 1 /HPF (0-6); UROBILINOGEN, URINE AUTO 0.2 mg/dL (0.0-2.0); WBC, URINE AUTO 54 /HPF (0-3)
--- NOTE | 2018-05-05 15:42 | REP ---
Chest one-view HISTORY: SIRS Comparison: 09/12/2017 The lungs are clear. The cardiac silhouette is enlarged . The pulmonary vasculature is normal in appearance. A catheter is present in the superior vena cava. Impression: Cardiomegaly. Electronically Signed by Pepe Sanchez MD 05/05/2018 03:34 P
[2018-05-05 15:45] LABS: INFLUENZA A AMPLIFICATION NEGATIVE (NEGATIVE); INFLUENZA B AMPLIFICATION NEGATIVE (NEGATIVE)
[2018-05-05 15:49] LABS: ALBUMIN 2.5 GM/DL (3.2-5.2); BILIRUBIN,DIRECT 0.3 MG/DL (0.0-0.2); BILIRUBIN,TOTAL 0.6 MG/DL (0.2-1.0); CALCIUM LEVEL 8.9 MG/DL (8.8-10.2); CREATININE FOR GFR 2.5 MG/DL (0.70-1.30); GLOMERULAR FILTRATION RATE 26.2 (>35); MB/CK RELATIVE INDEX 4.71 (< OR =4); POTASSIUM SERUM 4.3 MEQ/L (3.5-5.1); TOTAL PROTEIN 5.6 GM/DL (6.4-8.2); TROPONIN I 0.7 NG/ML (< 0.10)
--- NOTE | 2018-05-05 15:50 | REP ---
CT Head without contrast HISTORY: Confusion COMPARISON: 07/16/2017 An area of decreased attenuation is present in the left basal ganglia. This represents an old lacunar infarction. An air decreased attenuation is present in the posterior left parietal and temporal lobes. There is dilatation of the overlying cortical sulci and posterior body and atrium of the left lateral ventricle. This represents an old infarction. Confluent areas of decreased attenuation are present in the periventricular and subcortical white matter. This represents small-vessel ischemic disease. There is no intraparenchymal hemorrhage, acute infarct, mass or midline shift. The ventricular system and cortical sulci as well as subarachnoid space in the posterior fossa are dilated consistent with moderate volume loss. There is no extra cerebral collection. There is no fracture. The visualized sinuses are clear. IMPRESSION: 1. Old left basal ganglia lacunar infarction. 2. Old left temporal parietal lobe infarction. 3. Small vessel ischemic disease. 4. Moderate volume loss. Electronically Signed by Pepe Sanchez MD 05/05/2018 03:42 P
[2018-05-05 15:55] LABS: ATYPICAL LYMPH 1 % (0-5); LYMPHOCYTES 12 % (16-52); METAMYELOCYTES 2 % (0-0); MONOCYTES 4 % (0-8); NEUTROPHILS 41 % (35-75); PLATELET ESTIMATE NORMAL (NORMAL)
[2018-05-05 15:56] LABS: TOXIC GRANULATION 1+; TOXIC VACUOLATION 1+
[2018-05-05 15:57] LABS: CRENATED RBC 1+; POIKILOCYTOSIS 2+
[2018-05-05 16:00] LABS: OVALOCYTES 1+
[2018-05-05] MEDS ORDERED: DILUENT IV ONE (16:00)
[2018-05-05] MEDS ORDERED: MEROPENEM INJ 1 GM in APPROPRIATE DILUENT 1 EA IV ONE (16:00)
[2018-05-05] MEDS ORDERED: NS IV ONE (16:00)
[2018-05-05 17:33] LABS: INR 3.31; PROTHROMBIN TIME 34.4 SECONDS (12.1-14.4)
[2018-05-05] MEDS ORDERED: LEXA5TAB13 PO (17:34)
[2018-05-05] MEDS ORDERED: ALPH0.156 OS (17:34)
[2018-05-05] MEDS ORDERED: VITA1DRO SL (17:34)
[2018-05-05] MEDS ORDERED: RENATAB5 PO (17:34)
[2018-05-05] MEDS ORDERED: NITR0.4S14 SL (17:34)
[2018-05-05] MEDS ORDERED: LEVO100T5 PO (17:34)
[2018-05-05] MEDS ORDERED: BRIM2OPD (17:34)
[2018-05-05] MEDS ORDERED: PANT40TA3 PO (17:34)
[2018-05-05] MEDS ORDERED: ISOS30TA4 PO (17:34)
[2018-05-05] MEDS ORDERED: HYDR-3911 PO (17:34)
[2018-05-05] MEDS ORDERED: PROS5TAB PO (17:34)
[2018-05-05] MEDS ORDERED: SPIR-10 PO (17:34)
[2018-05-05] MEDS ORDERED: NEOSOIN2 TOP (17:34)
[2018-05-05] MEDS ORDERED: AMLO5TAB6 PO (17:34)
[2018-05-05] MEDS ORDERED: CAPT1TAB17 PO (17:34)
[2018-05-05] MEDS ORDERED: RENV2TAB PO (17:34)
[2018-05-05] MEDS ORDERED: COUM1TAB17 PO (17:34)
[2018-05-05] MEDS ORDERED: FLON1SPR (17:34)
[2018-05-05] MEDS ORDERED: FLOM0.4C39 PO (17:34)
[2018-05-05] MEDS ORDERED: DOBUTamine HCL 500,000 MCG in APPROPRIATE DILUENT 1 EA IV SCH (21:15)
[2018-05-05] MEDS ORDERED: VANCOMYCIN HCL 1,000 MG, VIAL MATE ADAPTER 1 EACH in D5W 250 ML IV ONE (21:15)
[2018-05-05] MEDS ORDERED: FUROSEMIDE 100 MG/10 ML VIAL (J1940) IV ONE (21:15)
--- NOTE | 2018-05-05 21:24 | HPE ---
DATE OF ADMISSION: 05/05/2018 CHIEF COMPLAINT: Hypotension at dialysis. 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 Stacy, history of lower extremity deep vein thrombosis (DVT), status post inferior vena cava (IVC) filter, on chronic anticoagulation with Coumadin, history of hypothyroidism, history of BPH, prior cerebrovascular accident (CVA), who presents with chief complaint of hypotension at dialysis today. Per patient's and granddaughter, who are at bedside, patient has not been himself the last few days and appeared a little bit more weak. He went to his usual dialysis today, and it was unable to be completed secondary to low blood pressures, and he was sent here. reports that usually show knows if patient has a urinary tract infection (UTI), as his urine smells foul. They deny that he had any fevers. He normally is verbal at home and is oriented to at least person and place. He is nonambulatory at home and uses a wheelchair but can stand and pivot. They have a group home supervisor to help with his needs. He does have a DO NOT RESUSCITATE/DO NOT INTUBATE with limited medical treatment on file. REVIEW OF SYSTEMS: Unable to obtain secondary to patient's mental status. EMERGENCY ROOM COURSE: Patient had a urine sample in the emergency room taken that was dirty with 54 whites, positive leukocyte esterase. He was given a dose of meropenem. He was admitted for UTI with encephalopathy. He did have a CT scan in the emergency department (ED) that was negative for any acute findings. He was given multiple fluid boluses for his hypotension in the emergency room, which was as low as 87/53. PAST MEDICAL HISTORY: As noted above in history of present illness (HPI). PAST SURGICAL HISTORY: 1. Left hip surgery. 2. Left nephrostomy tube placed. 3. Right chest hemodialysis catheter placed. 4. Partial right ear resection secondary to basal cell carcinoma. HOME MEDICATIONS: - amlodipine 5 mg daily - captopril 25 mg twice daily - Lexapro 5 mg daily - finasteride 5 mg every evening - hydralazine 50 mg daily as needed for high blood pressure - Imdur 30 mg at bedtime - Synthroid 100 mcg by mouth daily - Neosporin topical daily - pantoprazole 40 mg daily - spironolactone 25 mg twice daily - tamsulosin 0.4 mg at bedtime - warfarin 2.5 mg at bedtime - vitamin B12 at 3000 mcg sublingual daily - nitroglycerine as needed - Daisy Kristofer one tablet by mouth at bedtime - Renagel 800 mg by mouth twice a day - Alphagan eyedrops, one drop left eye (OS) twice a day - fluticasone propionate 50 mcg two sprays nasal daily ALLERGIES: PENICILLINS. SOCIAL HISTORY: Patient lives with his . They have a group home supervisor. He normally is not ambulatory but is able to stand and pivot. No smoking, alcohol, drugs. FAMILY HISTORY: No significant family history that is contributory. PHYSICAL EXAMINATION: Patient's vital signs show blood pressure as low as 87/53, most recently 96/56 with a pulse of 93, pulse oximetry 93% on 4 liters. GENERAL: He is lethargic and difficult to arouse. He is not verbal. HEENT: Oropharynx is clear. Patient has a partial right ear resection. CARDIOVASCULAR: Regular rate and rhythm. Loud systolic ejection murmur. CHEST: Clear to auscultation bilaterally from the anterior aspect. ABDOMEN: Soft, nontender, nondistended. Left nephrostomy tube is visible. GENITOURINARY: Patient has a left nephrostomy tube. EXTREMITIES: Patient's left lower extremity is larger than his right, which is chronic for him. NEUROLOGIC: Patient is not verbal at this time. He does not follow any commands. He is not able to state his name. He was able to open his eyes with repeated stimuli. SKIN: Intact. LABORATORY DATA: Patient's CBC shows a white count of 4.9, hemoglobin 10.9, platelets of 162. Chemistry: Shows a creatinine of 2.5, potassium of 4.3. Lactate is 3.7. Troponin is 0.7. Urine was positive for 54 white cells, positive leukocyte esterase. Blood cultures are pending. IMAGING: CT head that shows old left basal ganglia and left temporoparietal lobe infarctions. There is small-vessel ischemic disease. There is moderate volume loss. There is also a chest x-ray that shows cardiomegaly but no acute process. ASSESSMENT AND PLAN: This is an 88-year-old gentleman with past medical history of end-stage renal disease, on hemodialysis since 2013, Friday, , Friday, secondary to obstructive uropathy with a history of left nephrostomy tube, who presents with low blood pressures and unable to tolerate hemodialysis. 1. Sepsis, likely secondary to urinary tract infection. Patient does have systemic inflammatory response syndrome (SIRS) criteria on admission with temperature to 100.8 and heart rates as high as 96. Additionally, patient has severe sepsis given that he has a positive lactate. Patient's last cultures in August 2017 show pseudomonas that was pansensitive except to Macrobid. Therefore, given patient's penicillin allergy, I am going to continue the patient on meropenem. Also we will give vancomycin in case of line infection. We will follow the cultures. I will not give any additional fluids unless patient's mean arterial pressure (MAP) drops below 60. I am admitting the patient to the intensive care unit (ICU) for close hemodynamic monitoring. The patient is DO NOT RESUSCITATE/DO NOT INTUBATE, but family does want medical treatment for this infection and sepsis. We will follow the cultures, including the urine culture and tailor antibiotics accordingly. Obviously, I am going to hold all of patient's hypertensive at this time. 2. History of end-stage renal disease, on dialysis Friday, , Friday. Dr. Stacy is already aware of the patient and will see the patient tomorrow for ongoing dialysis while the patient is here. 3. Toxic metabolic encephalopathy, likely from UTI. Patient is alerted, and his mental status is not per baseline per family. CT head is unremarkable for any new acute process. This is likely from his infection. Given his acute altered mental status, I am going to keep him nothing by mouth. We will put in a speech consult to continue to monitor his mental status and swallow function. This should hopefully improve with treatment of his UTI. 4. Patient has a history of deep vein thromboses (DVTs) and inferior vena cava (IVC) filter on Coumadin. Patient's INR was supratherapeutic to 3.3 on admission; therefore, I am holding the home Coumadin, and primary team can consider resuming tomorrow based on tomorrow's labs. 5. History of hypertension. All home antihypertensives are on hold, including amlodipine, captopril, hydralazine, Imdur, spironolactone, given patient's low blood pressures. These can be resumed as patient's blood pressure tolerates and with clinical improvement. 6. History of BPH with left nephrostomy tube. As patient is currently nothing by mouth secondary to mental status, home finasteride and tamsulosin are currently on hold, and this can be resumed once patient's mental status improves. 7. Hypothyroidism. I have placed the patient on IV Synthroid for now at 75 mcg daily, and patient can be switched to home Synthroid by mouth dose once he is tolerating by mouth. 8. DVT prophylaxis. Patient is supratherapeutic on his Coumadin. Will monitor INRs daily and resume when appropriate. MTDD
[2018-05-05] MEDS: BRIMONIDINE 0.15% OPHTH SOLN 5 ML OS SCH (23:00)
[2018-05-05] MEDS: ACETAMINOPHEN 325 MG SUPP PR PRN (23:17)
[2018-05-05 23:29] LABS: ABG BASE EXCESS 0.8 (-2.0-2.0); ABG HCO3 24.8 MEQ/L (22.0-26.0); ABG O2 SATURATION 92.7 % (95.0-99.0); ABG PARTIAL PRESSURE CO2 37.4 mmHg (35.0-45.0); ABG PARTIAL PRESSURE O2 70.7 mmHg (75.0-100.0); ABG STANDARD HCO3 25.1 MEQ/L (22.0-26.0)
[2018-05-06] VITALS (53 sets, daily range): BP systolic 64–116; BP diastolic 40–73
[2018-05-06] MEDS ORDERED: DEXTROSE 50% 50 ML SYRINGE IV STA (01:48)
[2018-05-06] MEDS ORDERED: GLUCOSE 4 GM CHEW TABLET PO PRN (02:00)
[2018-05-06] MEDS ORDERED: GLUCAGON FOR INJ 1 MG VIAL (J1610) SC PRN (02:00)
[2018-05-06 04:52] LABS: HEMATOCRIT 29.9 % (42.0-52.0); HEMOGLOBIN 9.6 g/dl (13.5-17.5); MEAN CORPUSCULAR HEMOGLOBIN 31.7 pg (27.0-33.0); MEAN CORPUSCULAR HGB CONC 32.1 g/dl (32.0-36.5); MEAN CORPUSCULAR VOLUME 98.7 fl (80.0-96.0); PLATELET COUNT, AUTOMATED 145 10^3/uL (150-450); RED BLOOD COUNT 3.03 10^6/uL (4.30-6.10); WHITE BLOOD COUNT 9.9 10^3/uL (4.0-10.0)
[2018-05-06 05:20] LABS: CALCIUM LEVEL 9.5 MG/DL (8.8-10.2); CREATININE FOR GFR 2.95 MG/DL (0.70-1.30); GLOMERULAR FILTRATION RATE 21.6 (>35); POTASSIUM SERUM 4.1 MEQ/L (3.5-5.1)
[2018-05-06] MEDS: DEXTROSE 50% 50 ML SYRINGE IV PRN ×2 (06:46→12:53)
--- NOTE | 2018-05-06 08:29 | NUR ---
Recommend NPO. Please provide thorough oral care 3x/day w/ suction. Please provide swabs/saliva substitute to treat dry mouth. Will f/u and attempt PO trials as tolerated by pt. Addendum: 05/06/[address] [facility] Amended: Links added.
[2018-05-06] MEDS ORDERED: LEVOTHYROXINE 100 MCG (0.1MG) VIAL IV SCH (09:00)
[2018-05-06] MEDS: BRIMONIDINE 0.15% OPHTH SOLN 5 ML OS SCH ×2 (09:20→20:35)
[2018-05-06] MEDS: FLUTICASONE PROP 0.05% NASAL SPRAY 16 GM (FLONASE) SCH (09:20)
[2018-05-06] MEDS ORDERED: DARBEPOETIN 100 MCG/0.5 ML *DIALYSIS* SYRINGE (J0882) IV SCH (13:00)
[2018-05-06] MEDS ORDERED: DEXTROSE 50% 50 ML SYRINGE IV PRN (13:30)
[2018-05-06] MEDS: ACETAMINOPHEN 325 MG SUPP PR PRN ×2 (14:03→22:50)
--- NOTE | 2018-05-06 14:11 | IPNPDOC ---
Subjective Date Seen The patient was seen on 05/06/18. Subjective Chief Complaint/HPI Patient seen and examined at the bedside. The patient remains mostly obtunded and does not respond to any verbal stimuli. He has followed intermittent commands as per the patient's bedside nurse. Objective Physical Examination General Exam: Positive: No Acute Distress, Other (patient moaning at times in response to questioning) ENT Exam: Positive: Mucous membr. moist/pink (dry mucous membranes) Chest Exam: Positive: Diminished Heart Exam: Positive: Tachycardic, Normal S1, Normal S2 Abdomen Exam: Positive: Soft; Negative: Tenderness Male Exam: Negative: Normal Genital Exam (Left sided nephrostomy tube+) Extremity Exam: Positive: Swelling (2+ pitting edema bileraterally); Negative: Tenderness Assessment /Plan Plan/VTE VTE Prophylaxis Ordered?: Yes Plan Sepsis likely 2/2 Urinary Tract Infection Patient with a history of recurrent UTI's with cultures previously growing Pseudomonas Urine Culture pending Cont Meropenem We will cont to monitor the patient in the ICU Septicemia 2/2 UTI Blood Cultures from 05/05 preliminarily positive for Gram Negative Rods Repeat Blood Cultures from 05/06 pending Cont Meropenem Septic vs Cardiogenic Shock Patient was given IVF Hydration on admission, for hypotension. 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 Hence, Dobutamine gtt was started, and the patient's blood pressure has been titrated to maintain a MAP >65. ESRD on HD Nephrology on board--dialyzing the patient has been a challenge given his hypotension We will hope to remove some fluid today while the patient is on Dobutamine gtt Combined Systolic and Diastolic CHF, decompensated Volume optimization to be achieved via Dialysis as tolerated Toxic metabolic encephalopathy, likely from UTI Lactic Acidosis 2/2 UTI Hx of DVT s/p IVC Filter On Coumadin at baseline Hx of Obstructive Uropathy s/p Left Nephrostomy Tube Patient has tube exchanged q6-8 weeks--last changed 3 weeks ago Hypertension Antihypertensives held 2/2 Sepsis Hypothyroidism Cont Levothyroxine DVT Prophylaxis on Coumadin Code Status: DNR/DNI--I had a long discussion with the patient's /HCP Zuleima Lantigua at the bedside today regarding goals of care and the patient's overall prognosis. We discussed the patient's critical condition, and the possibility that the patient may not survive from this illness given the patient's advanced heart failure, end stage renal disease on hemodialysis, and current septic picture from a urinary tract infection with gram-negative bacteremia and septic/cardiogenic shock. The patient's has verbalized understanding of the magnitude of illness and has requested that we continue all active medical treatment at this time and keep the patient DNR/DNI. VS, I&O, 24H, Fishbone Vital Signs/I&O Vital Signs Date Time Temp Pulse Resp B/P (MAP) Pulse Ox O2 Delivery O2 Flow Rate FiO2 05/06/18 13:00 94 29 102/63 (76) 95 5.0 05/06/18 12:00 97.9 05/06/18 05:02 50 05/05/18 17:52 Nasal Cannula I&O- Last 24 Hours up to 6 AM 05/06/18 06:00 Intake Total 1829.6 ml Output Total 40 ml Balance 1789.6 ml Laboratory Data 24H LABS Laboratory Tests 2 05/05/18 15:00: Nucleated Red Blood Cells % (auto) 0.0, Neutrophils 41, Band Neutrophils 40H, Lymphocytes (Manual) 12L, Monocytes (Manual) 4, Metamyelocytes 2H, Atypical Lymphocytes 1, Toxic Granulation 1+, Toxic Vacuolation 1+, Platelet Estimate NORMAL, Poikilocytosis 2+, Ovalocytes 1+, Crenated Cell 1+, Prothrombin Time 34.4H, Prothromb Time International Ratio 3.31, Anion Gap 8, Glomerular Filtration Rate 26.2L, Lactic Acid Level 3.7*H, Calcium Level 8.9, Aspartate Amino Transf (AST/SGOT) 38H, Alanine Aminotransferase (ALT/SGPT) 26, Alkaline Phosphatase 110, Total Bilirubin 0.6, Direct Bilirubin 0.3H, Total Creatine Kinase 51, Creatine Kinase MB 2.0, Creatine Kinase MB Relative Index 4.71H, Troponin I 0.70H, Total Protein 5.6L, Albumin 2.5L, Albumin/Globulin Ratio 0.81L 05/05/18 15:03: Bedside Glucose (Misc Panel) 63L 05/05/18 15:07: Influenza Type A (RT-PCR) NEGATIVE, Influenza Type B (RT-PCR) NEGATIVE 05/05/18 15:08: Urine Appearance CLOUDYH, Urine Color VIANEY, Urine pH 8.0, Urine Specific [place] 1.011, Urine Protein 3+H, Urine Glucose (UA) NEGATIVE, Urine Ketones NEGATIVE, Urine Urobilinogen 0.2, Urine Bilirubin NEGATIVE, Urine Leukocyte Esterase 2+H, Urine Blood 3+H, Urine Nitrite NEGATIVE, Urine WBC (Auto) 54H, Urine RBC (Auto) 170H, Urine Hyaline Casts (Auto) 0, Urine Bacteria (Auto) 1+H, Urine Squamous Epithelial Cells 1, Urine Mucus (Auto) SMALL, Urine Sperm (Auto) 05/05/18 15:22: Bedside Glucose (Misc Panel) 181H 05/05/18 19:20: Lactic Acid Followup at 4 Hours 4.8*H 05/05/18 21:13: EI-Tmf-H-Type Natriuretic Peptide > 359163L 05/05/18 21:56: Lactic Acid Level 3.9*H 05/05/18 23:20: Blood Gas Bicarbonate Standard 25.1, Arterial Blood pH 7.440, Arterial Blood Partial Pressure CO2 37.4, Arterial Blood Partial Pressure O2 70.7L, Arterial Blood Total CO2 26.0, Arterial Blood HCO3 24.8, Arterial Blood Base Excess 0.8, Arterial Blood Oxygen Saturation 92.7L 05/06/18 01:42: Bedside Glucose (Misc Panel) 62L 05/06/18 02:11: Lactic Acid Followup at 4 Hours 3.0*H 05/06/18 02:36: Bedside Glucose (Misc Panel) 129H 05/06/18 03:58: Nucleated Red Blood Cells % (auto) 0.0, Anion Gap 10, Glomerular Filtration Rate 21.6L, Blood Urea Nitrogen 45H, Creatinine 2.95H, Sodium Level 134L, Potassium Level 4.1, Chloride Level 99, Carbon Dioxide Level 25, Calcium Level 9.5 05/06/18 06:40: Bedside Glucose (Misc Panel) 65L 05/06/18 09:18: Bedside Glucose (Misc Panel) 70L 05/06/18 11:08: Bedside Glucose (Misc Panel) 66L CBC/BMP Laboratory Tests 05/05/18 15:00 Red Blood Count 3.37 L, Mean Corpuscular Volume 97.6 H, Mean Corpuscular Hemoglobin 32.3, Mean Corpuscular Hemoglobin Concent 33.1, Red Cell Distribution Width 15.5 H 05/06/18 03:58 Red Blood Count 3.03 L, Mean Corpuscular Volume 98.7 H, Mean Corpuscular Hemoglobin 31.7, Mean Corpuscular Hemoglobin Concent 32.1, Red Cell Distribution Width 15.6 H, Calcium Level 9.5 Microbiology Microbiology 05/05/18 Blood Culture - Preliminary, Resulted 05/05/18 Blood Culture - Preliminary, Resulted YAEL BARROSO MD May 06, 2018 14:11
--- NOTE | 2018-05-06 15:28 | CR ---
DATE OF CONSULTATION: 05/06/2018 REQUESTING PHYSICIAN: Dr. Robledo CONSULTING PHYSICIAN: Dr. Anand REASON FOR CONSULTATION: Management of end-stage renal disease, hemodialysis, and fluid status. CHIEF COMPLAINT: Patient was sent from dialysis center after dialysis because of hypotension and possible urinary tract infection. HISTORY OF PRESENT ILLNESS: Mr. Adrian Lantigua is an 88-year-old male with past medical history of end-stage renal disease, on hemodialysis every Friday, , Friday, chronic failure to thrive, chronically bed ridden, multiple other comorbidities as mentioned below. He has history of hydronephrosis and left-sided percutaneous nephrostomy, history of urinary tract infections in the past as well. Patient was being dialyzed yesterday, and during dialysis he was found to be very obtunded, hypotensive, and weak, so patient was dialyzed yesterday as outpatient just for clearance. He actually needed intravenous (IV) fluid during dialysis, because his blood pressure was very low. Given his history of urinary tract infections in the past as well, his symptoms were attributed to possible urinary tract infection, and he was sent to emergency room for further evaluation. In the emergency room, patient was found to have a dirty urinalysis (UA). He was given a dose of meropenem. Patient was admitted to intensive care unit (ICU) for hypotension, systolic blood pressures in low 80s. He was given IV fluid according to sepsis protocol. Almost 2 liters of fluid was given to him. I was called by the admitting physician, Dr. Cha Robledo, about this patient, and the initial plan was to treat the patient as sepsis and do his hemodialysis today morning; however, I was called again by the patient's nurse in the ICU last night that despite IV fluid hydration patient was getting more restless. He was hypoxemic. He was having frothy sputum. He was needing 15 liters of oxygen for hypoxemia. His lactic acid was actually getting worse from 3.7 to 4.8 after IV fluid hydration. At that point, given his history of systolic and diastolic congestive heart failure and worsening lactic acid level despite IV fluid hydration and hypoxemia, all of the symptoms were attributed to fluid overload and congestive heart failure (CHF). Patient was started on dobutamine infusion, and he was also given a dose of Lasix 60 mg IV. I saw and evaluated the patient today morning in the ICU. He was still in mild respiratory distress, but in the morning he was wearing nasal cannula. His blood pressures were improving with the dobutamine infusion, and his lactic acid level is also trending down. I arranged for patient's hemodialysis to be done at the bedside, and I saw and evaluated the patient again during hemodialysis, and he was tolerating the hemodialysis procedure well. PAST MEDICAL HISTORY: 1. End-stage renal disease, on hemodialysis every Friday, , Friday. 2. 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 3. Anemia secondary to end-stage renal disease. 4. 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 5. Hypothyroidism. 6. BPH. 7. History of left-sided percutaneous nephrostomy. 8. History of cerebrovascular accident (CVA) in the past. 9. Recurrent UTIs in the past. PAST SURGICAL HISTORY: 1. Status post left hip surgery. 2. Status post left percutaneous nephrostomy. 3. Status post right internal jugular (IJ) tunneled hemodialysis catheter. 4. Status post partial right ear resection secondary to basal cell carcinoma. ALLERGIES: He is allergic to PENICILLIN. FAMILY HISTORY: No significant family history of end-stage renal disease requiring hemodialysis. SOCIAL HISTORY: Patient lives at home with his . is actively involved in his care. He also has a caregiver at home. There is no history of smoking, illicit drug abuse, or alcohol abuse. He does not walk. He just pivots from wheelchair to the bed. REVIEW OF SYSTEMS: Patient was unable to provide a reliable review of systems. He was moaning when I saw him in the ICU. PHYSICAL EXAMINATION: GENERAL: Patient is awake, constantly moaning and coughing. Not talking. VITAL SIGNS: Temperature is 98.1 degrees Fahrenheit, blood pressure 96/60, pulse is 89, respiratory rate of 29, saturating 94% on 5 liters nasal cannula. HEAD AND NECK: Pupils equally round and reactive to light. Mucous membranes are moist. He has a lot of upper airway secretions, which are being suctioned. Neck is supple. Significantly elevated jugular venous distention (JVD) was noted. CARDIOVASCULAR: S1, S2. Edema 2+ of the right lower extremity and 3+ edema of the left lower extremity. RESPIRATORY: Decreased breath sounds bilaterally at the bases with inspiratory crackles and mild expiratory rhonchi. ABDOMEN: Soft. Positive bowel sounds. Nontender. No organomegaly. GENITOURINARY: Patient has left-sided percutaneous nephrostomy tube. MUSCULOSKELETAL: He has 3+ edema of the left extremity because of previous DVT. CENTRAL NERVOUS SYSTEM: Patient is nonverbal, lying in bed, constantly moaning but opens eyes and moves upper extremities. SKIN: No rashes or ulcers noted at this point. LYMPH NODE: No significant cervical, axillary, or inguinal lymphadenopathy. LABORATORY REVIEW: CBC showed a WBC 9.1, hemoglobin is 9.6, platelets are 145. INR is 3.3. Urinalysis showed it was cloudy. Protein 3+, 2+ leukocyte esterase. ABG done yesterday showed a pH of 7.4 pCO2 of 37, pO2 of 70, bicarbonate is 26, oxygen saturation is 92%. BMP showed sodium 134, potassium 4.1, chloride 99, bicarbonate 25, BUN 45, creatinine is 2.9. Lactic acid is 3 this morning. Calcium is 9.5. ProBNP is more than 175,000. Influenza is negative. Microbiology: Two out of two blood cultures are growing gram-negative rods. IMAGING: A chest x-ray was done yesterday, which showed cardiomegaly and catheter in the superior vena cava. CURRENT INPATIENT MEDICATIONS: Patient is currently on dobutamine drip, meropenem 500 mg IV daily. First dose was given yesterday. Vancomycin one dose was given yesterday. He was also given a dose of Lasix 60 mg IV times one dose yesterday. He is on levothyroxine 75 mcg IV daily. ASSESSMENT: An 88-year-old male with a history of end-stage renal disease, on hemodialysis every Friday, , Friday, history of combined systolic and diastolic congestive heart failure, obstructive uropathy status post left percutaneous nephrostomy, admitted at this time with shock, gram-negative chava bacteremia, and decompensated congestive heart failure. PLAN: 1. End-stage renal disease, on hemodialysis. Patient's regular days are Friday, , Friday. He was dialyzed yesterday for clearance; however, patient is significantly volume overloaded. He is being dialyzed again today while on dobutamine drip. I will try to remove at least 2 liters of fluid as tolerated by his blood pressure. 2. Acute respiratory distress secondary to volume overload. Patient was given fluid as part of sepsis protocol, and we could not remove any fluid during dialysis yesterday, so he is significantly volume overloaded. ProBNP is more than 175,000. Volume will be removed with dialysis. 3. Sepsis secondary to gram-negative chava bacteremia. Patient has urinary tract infection and gram-negative rods in the blood. He came in hypotensive; however, after aggressive fluid hydration he became volume overloaded. He is currently on dobutamine infusion. He is empirically covered with meropenem at this time, which is adequate. Blood pressures are better. Continue serial lactate monitoring. Patient will need change of percutaneous nephrostomy tube as well. 4. Acute decompensated combined systolic and diastolic congestive heart failure. Patient was initially in septic shock, and later on he went into cardiogenic shock. His lactic acid was rising, and he was hypoxemic. He is responding well to dobutamine infusion. Fluid is being removed during dialysis. 5. Metabolic encephalopathy. It is secondary to urinary tract infection, volume overload, and bacteremia. Continue the current management. Patient baseline is nonverbal. 6. Hypothyroidism. Patient's home dose of levothyroxine is 100 mcg. I am decreasing the levothyroxine dose to 50 mcg daily. 7. Anemia and end-stage renal disease. Hemoglobin is 9.6, which is suboptimal. I am going to give the patient a dose of Aranesp 100 mcg with dialysis. 8. History of deep vein thrombosis (DVT) of left lower extremity. INR was supratherapeutic on admission. Anticoagulation is on hold. Thank you for involving me in the care of this patient. I shall be happy to follow the patient along with you tomorrow morning. Total critical care time spent in the management of this patient in the ICU today morning was 1 hour. That does not include any procedures.
[2018-05-06] MEDS ORDERED: **VANCO AFTER HD** MISC XX SCH (16:00)
[2018-05-06] MEDS ORDERED: VANCOMYCIN HCL 1,000 MG, VIAL MATE ADAPTER 1 EACH in D5W 250 ML IV SCH (16:00)
[2018-05-06] MEDS: MEROPENEM INJ 500 MG in APPROPRIATE DILUENT 1 EA IV SCH (16:09)
[2018-05-06 17:53] LABS: INR 3.92; PROTHROMBIN TIME 39.3 SECONDS (12.1-14.4)
[2018-05-07] VITALS (42 sets, daily range): BP systolic 85–126; BP diastolic 54–80
[2018-05-07] MEDS ORDERED: MORPHINE 4 MG/ML 1ML VIAL/SYRINGE (J2270) IV ONE ×2 (01:30→02:00)
[2018-05-07 04:42] LABS: HEMATOCRIT 29.6 % (42.0-52.0); HEMOGLOBIN 9.6 g/dl (13.5-17.5); MEAN CORPUSCULAR HEMOGLOBIN 32.3 pg (27.0-33.0); MEAN CORPUSCULAR HGB CONC 32.4 g/dl (32.0-36.5); MEAN CORPUSCULAR VOLUME 99.7 fl (80.0-96.0); PLATELET COUNT, AUTOMATED 133 10^3/uL (150-450); RED BLOOD COUNT 2.97 10^6/uL (4.30-6.10); WHITE BLOOD COUNT 15.3 10^3/uL (4.0-10.0)
[2018-05-07 04:51] LABS: INR 4.11; PROTHROMBIN TIME 40.8 SECONDS (12.1-14.4)
[2018-05-07 04:53] LABS: CREATININE FOR GFR 2.68 MG/DL (0.70-1.30); GLOMERULAR FILTRATION RATE 24.2 (>35); POTASSIUM SERUM 4.7 MEQ/L (3.5-5.1)
[2018-05-07] MEDS: LEVOTHYROXINE 100 MCG (0.1MG) VIAL IV SCH (09:29)
[2018-05-07] MEDS: BRIMONIDINE 0.15% OPHTH SOLN 5 ML OS SCH ×2 (09:29→20:53)
[2018-05-07] MEDS: FLUTICASONE PROP 0.05% NASAL SPRAY 16 GM (FLONASE) SCH (09:30)
--- NOTE | 2018-05-07 14:50 | IPN ---
DATE OF SERVICE: 05/07/2018 SUBJECTIVE: The patient was seen and examined at the bedside today morning. The patient's and caregiver were also present at the bedside. He was dialyzed yesterday. He tolerated the hemodialysis procedure, 1.5 liters of fluid was removed. His breathing is slightly better today as compared with yesterday. Dobutamine infusion was slowly tapered off. Patient still has mildly elevated lactic acid level of 2.9 as of labs today morning. The patient is constantly moaning and groaning and he is not eating any food, and not following any commands and still has metabolic encephalopathy. He does not follow any commands at this point. OBJECTIVE: VITAL SIGNS: Temperature is 99.7 degrees Fahrenheit, blood pressure is 101/63, pulse is 89, respiratory rate of 20, saturating 86% on 4 liters via nasal cannula. INTAKE AND OUTPUT: Urine output recorded as only 5 mL. Ultrafiltration with hemodialysis was 1.5 liters yesterday. Weight on the bed scale is 63.5 kg. PHYSICAL EXAMINATION: GENERAL: The patient's eyes are half open. He is moaning and groaning, does not follow commands. Moves extremities to painful stimuli. HEAD AND NECK EXAM: Pupils are round and reactive to light. Mucous membranes are moist. Neck is supple. He has some moderately elevated jugular venous distension (JVD). He has a right internal jugular (IJ) tunneled hemodialysis catheter. CARDIOVASCULAR: S1, S2. Irregularly irregular rate. He has 2+ edema of the right lower extremity and 3+ edema of the left lower extremity. RESPIRATORY: Decreased breath sounds at the bases. Poor inspiratory effort. ABDOMEN: Soft, obese. Positive bowel sounds. Nontender. He has a left sided percutaneous nephrostomy tube. GENITOURINARY (): No hernia were noted. MUSCULOSKELETAL: He has edema of the bilateral lower extremities. Otherwise, no clubbing or cyanosis. CENTRAL NERVOUS SYSTEM: Patient is nonverbal, constantly moaning, making loud sounds. He does not follow commands, but moves extremities to painful stimuli. LAB REVIEW: CBC showed WBC 15.3, hemoglobin 9.6, platelets are 133. BMP showed sodium 137, potassium 4.7, chloride 102, bicarb 27, BUN 41, creatinine is 2.6. Lactic acid level last night was 2.9. Calcium is 10, magnesium is 2. Microbiology: Two out of two blood cultures are growing E. Coli. Urine culture is pending. CURRENT INPATIENT MEDICATIONS: The patient's medications were all reviewed by me. He continues to be on meropenem. Vancomycin has been stopped. Dobutamine drip has been weaned off. Levothyroxine dose was decreased to 50 mcg IV daily. No other change in the medications today as compared with yesterday. ASSESSMENT/PLAN: 1. End stage renal disease on hemodialysis. Today is the patient's regular day of dialysis according to Friday, , Friday schedule. I will dialyze him again and try to remove 2 more kg of fluid as tolerated by his blood pressure. 2. Sepsis secondary to E. coli bacteremia. The patient continues to be on meropenem. He still has persistent leukocytosis and lactic acidosis, however dobutamine drip has been weaned off. Blood pressures systolic are running low 100s. 3. Acute decompensated combined systolic and diastolic congestive heart failure (CHF). Patient has a combination of cardiogenic and septic shock. He was requiring dobutamine yesterday. Dobutamine was weaned off after dialysis and fluid removal. Further fluid removal will be done during dialysis today. 4. Metabolic encephalopathy. It is secondary to combination of UTI, bacteremia and CHF. Patient is still nonverbal and not following commands. 5. Hypothyroidism. Continue current dose of levothyroxine 50 mcg IV daily. 6. Anemia secondary to end stage renal disease. Patient is currently on Aranesp 100 mcg IV with hemodialysis. 7. History of deep vein thrombosis (DVT). The patient's INR is supratherapeutic. He is currently not on any anticoagulation at this point. DISPOSITION: The patient overall has a poor prognosis. He is DO NOT RESUSCITATE, DO NOT INTUBATE, however family wants to continue the current aggressive care including dialysis. Total critical care time spent in the management of this patient in the ICU today was 45 minutes. That does not include any procedures.
--- NOTE | 2018-05-07 15:51 | IPNPDOC ---
Subjective Date Seen The patient was seen on 05/07/18. Subjective Chief Complaint/HPI Patient seen and examined at the bedside this morning. He has been weaned off of the dobutamine drip overnight and is more hemodynamically stable this morning. However, the patient's white blood cell count has continued to trend upward, lactic acid remains elevated, and his overall mental status continues to decline as he remains largely obtunded with occasional moaning/groaning noted. He has not had any by mouth intake since admission given his clinical condition. Objective Physical Examination General Exam: Positive: Moderate Distress, Other (patient moaning at times in response to questioning) ENT Exam: Positive: Mucous membr. moist/pink (dry mucous membranes) Chest Exam: Positive: Diminished Heart Exam: Positive: Rate Normal, Normal S1, Normal S2 Abdomen Exam: Positive: Soft; Negative: Tenderness Male Exam: Negative: Normal Genital Exam (Left sided nephrostomy tube+) Extremity Exam: Positive: Swelling (1+ pitting edema bileraterally); Negative: Tenderness Assessment /Plan Plan/VTE VTE Prophylaxis Ordered?: Yes Plan Sepsis 2/2 Urinary Tract Infection Patient with a history of recurrent UTI's with cultures previously growing Pseudomonas Blood Cultures positive x 2 for E. Coli from 05/05, repeat cultures from 05/06 pending Urine Culture pending Cont Meropenem We will cont to monitor the patient in the ICU Septicemia 2/2 UTI Blood Cultures from 05/05 positive for E. Coli Repeat Blood Cultures from 05/06 pending Cont Meropenem Septic vs Cardiogenic Shock The patient has been weaned off of the Dobutamine drip early this morning. ESRD on HD Nephrology on board--dialyzing the patient has been a challenge given his hypotension We will hope to remove some more fluid today, pending his blood pressure is able to tolerate this. Combined Systolic and Diastolic CHF, decompensated Volume optimization to be achieved via Dialysis as tolerated Toxic metabolic encephalopathy, likely from UTI Lactic Acidosis 2/2 UTI Hx of DVT s/p IVC Filter On Coumadin at baseline Hx of Obstructive Uropathy s/p Left Nephrostomy Tube Patient has tube exchanged q6-8 weeks--last changed 3 weeks ago We have placed an order to have the Nephrostomy tube changed, however the patient has been too unstable to go down for the replacement. 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 I have also reached out to the patient's son (Giancarlo [phone]) regarding the condition of his father. He has verbalized understanding of the patient's current clinical condition and poor outlook. He has stated that he will continue to keep an open dialogue with his mom (Mrs. Zuleima Lantigua) about goals of care moving forward if the patient's medical condition continues to decline. VS, I&O, 24H, Fishbone Vital Signs/I&O Vital Signs Date Time Temp Pulse Resp B/P (MAP) Pulse Ox O2 Delivery O2 Flow Rate FiO2 05/07/18 12:30 96 12 104/64 (77) 94 4.0 05/07/18 12:00 98.9 05/06/18 05:02 50 05/05/18 17:52 Nasal Cannula I&O- Last 24 Hours up to 6 AM 05/07/18 06:00 Intake Total 70.2 ml Output Total 1565 ml Balance -1494.8 ml Laboratory Data 24H LABS Laboratory Tests 2 05/06/18 16:54: Bedside Glucose (Misc Panel) 73L 05/06/18 17:23: Prothrombin Time 39.3H, Prothromb Time International Ratio 3.92 05/06/18 18:31: Bedside Glucose (Misc Panel) 77L 05/06/18 19:09: Lactic Acid Level 2.8*H 05/06/18 23:24: Lactic Acid Followup at 4 Hours 2.9*H 05/06/18 23:38: Bedside Glucose (Misc Panel) 79L 05/07/18 04:08: Nucleated Red Blood Cells % (auto) 0.0, Prothrombin Time 40.8H, Prothromb Time International Ratio 4.11, Anion Gap 8, Glomerular Filtration Rate 24.2L, Blood Urea Nitrogen 41H, Creatinine 2.68H, Sodium Level 137, Potassium Level 4.7, Chloride Level 102, Carbon Dioxide Level 27, Calcium Level 10.0, Magnesium Level 2.0 05/07/18 11:57: Bedside Glucose (Misc Panel) 80L CBC/BMP Laboratory Tests 05/07/18 04:08 Red Blood Count 2.97 L, Mean Corpuscular Volume 99.7 H, Mean Corpuscular Hemoglobin 32.3, Mean Corpuscular Hemoglobin Concent 32.4, Red Cell Distribution Width 15.9 H, Calcium Level 10.0 Microbiology Microbiology 05/06/18 Blood Culture, Received Pending 05/06/18 Blood Culture - Preliminary, Resulted No growth after 24 hours . All specim... 05/05/18 Blood Culture - Final, Complete Escherichia Coli 05/05/18 Blood Culture - Final, Complete Escherichia Coli 05/05/18 Urine Culture, Received Pending YAEL BARROSO MD May 07, 2018 15:51
[2018-05-07] MEDS: MEROPENEM INJ 500 MG in APPROPRIATE DILUENT 1 EA IV SCH (16:57)
[2018-05-07] MEDS: MORPHINE 4 MG/ML 1ML VIAL/SYRINGE (J2270) IV PRN ×3 (17:24→23:53)
[2018-05-07 18:35] LABS: INR 3.62; PROTHROMBIN TIME 36.9 SECONDS (12.1-14.4)
[2018-05-08] VITALS (18 sets, daily range): BP systolic 90–116; BP diastolic 50–81
[2018-05-08] MEDS: MORPHINE 4 MG/ML 1ML VIAL/SYRINGE (J2270) IV PRN ×3 (03:28→23:42)
[2018-05-08] MEDS: ACETAMINOPHEN 325 MG SUPP PR PRN ×2 (03:42→17:56)
[2018-05-08 04:42] LABS: HEMOGLOBIN 9.6 g/dl (13.5-17.5); PLATELET COUNT, AUTOMATED 103 10^3/uL (150-450)
[2018-05-08 04:50] LABS: INR 3.48; PROTHROMBIN TIME 35.8 SECONDS (12.1-14.4)
[2018-05-08 05:06] LABS: CALCIUM LEVEL 9.9 MG/DL (8.8-10.2); CREATININE FOR GFR 2.39 MG/DL (0.70-1.30); GLOMERULAR FILTRATION RATE 27.6 (>35); POTASSIUM SERUM 4.1 MEQ/L (3.5-5.1)
--- NOTE | 2018-05-08 06:03 | ECGEPIP ---
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
[2018-05-08] MEDS: LEVOTHYROXINE 100 MCG (0.1MG) VIAL IV SCH (08:06)
[2018-05-08] MEDS: BRIMONIDINE 0.15% OPHTH SOLN 5 ML OS SCH ×2 (08:06→20:30)
[2018-05-08] MEDS: FLUTICASONE PROP 0.05% NASAL SPRAY 16 GM (FLONASE) SCH (08:06)
--- NOTE | 2018-05-08 12:46 | IPNPDOC ---
Subjective Date Seen The patient was seen on 05/08/18. Subjective Chief Complaint/HPI Patient seen and examined at the bedside. He remains obtunded, nonverbal. The patient only groans/moans at times. He is not following any commands, and has not taken any food/drink by mouth. The patient's family is continuing to decide on goals of care at this point. Otherwise, the patient's white blood cell count is trending downward and he has remained hemodynamically stable off of the dobutamine drip for 24+ hours. Repeat blood cultures have come back negative. Objective Physical Examination General Exam: Positive: Moderate Distress (patient noted to be moaning/groaning), Other (patient moaning at times in response to questioning, nonverbal, eyes shut, and not following any commands.) ENT Exam: Positive: Other ENT (bitemporal wasting noted) Chest Exam: Positive: Diminished, Other (patient's ribs noted to be prominent on chest wall) Heart Exam: Positive: Rate Normal, Normal S1, Normal S2 Abdomen Exam: Positive: Soft; Negative: Tenderness Male Exam: Negative: Normal Genital Exam (Left sided nephrostomy tube+) Extremity Exam: Positive: Swelling (1+ pitting edema bileraterally); Negative: Tenderness Assessment /Plan Plan/VTE VTE Prophylaxis Ordered?: Yes Plan Sepsis 2/2 Urinary Tract Infection Patient with a history of recurrent UTI's with cultures previously growing Pse udomonas Blood Cultures positive x 2 for E. Coli from 05/05, repeat cultures from 05/06 negative Urine Culture pending Cont Meropenem We will cont to monitor the patient in the ICU Septicemia 2/2 UTI Blood Cultures from 05/05 positive for E. Coli Repeat Blood Cultures from 05/06 negative Cont Meropenem Septic vs Cardiogenic Shock The patient has been weaned off of the Dobutamine drip. ESRD on HD Nephrology on board--dialyzing the patient has been a challenge given his hypotension Combined Systolic and Diastolic CHF, decompensated Volume optimization to be achieved via Dialysis as tolerated Toxic metabolic encephalopathy, likely from UTI Lactic Acidosis 2/2 UTI Hx of DVT s/p IVC Filter On Coumadin at baseline Hx of Obstructive Uropathy s/p Left Nephrostomy Tube Patient has tube exchanged q6-8 weeks--last changed 3 weeks ago We have placed an order to have the Nephrostomy tube changed, however the patient has been too unstable to go down for the replacement. We will cont to monitor Hypertension Antihypertensives held 2/2 Sepsis Hypothyroidism Cont Levothyroxine DVT Prophylaxis on Coumadin Code Status: DNR/DNI, Poor Prognosis, patient remains obtunded. VS, I&O, 24H, Fishbone Vital Signs/I&O Vital Signs Date Time Temp Pulse Resp B/P (MAP) Pulse Ox O2 Delivery O2 Flow Rate FiO2 05/08/18 12:00 98.9 99 27 108/62 (77) 99 3.0 05/06/18 05:02 50 05/05/18 17:52 Nasal Cannula I&O- Last 24 Hours up to 6 AM 05/08/18 06:00 Intake Total 55 ml Output Total 2035 ml Balance -1980 ml Laboratory Data 24H LABS Laboratory Tests 2 05/07/18 17:21: Prothrombin Time 36.9H, Prothromb Time International Ratio 3.62 05/07/18 18:39: Bedside Glucose (Misc Panel) 79L 05/07/18 23:38: Bedside Glucose (Misc Panel) 84 05/08/18 04:04: Prothrombin Time 35.8H, Prothromb Time International Ratio 3.48, Nucleated Red Blood Cells % (auto) 0.2H, Anion Gap 9, Glomerular Filtration Rate 27.6L, Blood Urea Nitrogen 38H, Creatinine 2.39H, Sodium Level 140, Potassium Level 4.1, Chloride Level 103, Carbon Dioxide Level 28, Calcium Level 9.9, Magnesium Level 2.0 05/08/18 12:21: Bedside Glucose (Misc Panel) 96 CBC/BMP Laboratory Tests 05/08/18 04:04 Red Blood Count 3.00 L, Mean Corpuscular Volume 100.0 H, Mean Corpuscular Hemog lobin 32.0, Mean Corpuscular Hemoglobin Concent 32.0, Red Cell Distribution Width 15.7 H, Calcium Level 9.9 Microbiology Microbiology 05/06/18 Blood Culture - Preliminary, Resulted No growth after 24 hours . All specim... 05/06/18 Blood Culture - Preliminary, Resulted No growth after 24 hours . All specim... 05/05/18 Blood Culture - Final, Complete Escherichia Coli 05/05/18 Blood Culture - Final, Complete Escherichia Coli 05/05/18 Urine Culture, Received Pending YAEL BARROSO MD 22, 2019 12:46
[2018-05-08] MEDS ORDERED: PHYTONADIONE 10MG/ML INJECTION (J3430) SC ONE (15:15)
[2018-05-08] MEDS: MEROPENEM INJ 500 MG in APPROPRIATE DILUENT 1 EA IV SCH (15:38)
--- NOTE | 2018-05-08 20:02 | IPN ---
DATE: 05/08/2018 SUBJECTIVE: The patient was seen and examined at the bedside today, morning, in the intensive care unit (ICU). The patient is still obtunded, moaning and groaning, does not follow any commands, eyes are tightly closed; otherwise hemodynamically stable, not requiring any pressors. He was dialyzed yesterday. Two liters of fluid was removed, which he tolerated well. He is unable to provide any reliable review of systems. His was also present at the bedside when I saw him today - morning. OBJECTIVE: VITAL SIGNS: Temperature is 98.9 degrees Fahrenheit, blood pressure 108/62, pulse is 89, respiratory rate of 27, saturating 99% on three liters via nasal cannula. INTAKE/OUTPUT: Urine output recorded is only 5 mL. Ultrafiltration with hemodialysis was two liters yesterday. Weight on the bed scale is 63 kg. PHYSICAL EXAMINATION: GENERAL: The patient is laying in bed, eyes are closed. Otherwise, pupils are equally round and reactive to light. Mucous membranes are moist. Neck is supple. There is mildly elevated jugular venous distention (JVD). CARDIOVASCULAR: S1, S2, irregular heart rate. Trace edema of the right lower extremity and 1+ edema of the left lower extremity. RESPIRATORY: Decreased breath sounds at the bases, poor inspiratory effort, otherwise no active rales or rhonchi. ABDOMEN: Abdomen is soft, obese, positive bowel sounds. Left-sided percutaneous nephrostomy tube. GENITOURINARY: No Penn catheter and no hernias were noted. MUSCULOSKELETAL: Edema of the bilateral lower extremities is better today as compared with yesterday. CENTRAL NERVOUS SYSTEM: The patient is obtunded, nonverbal, constantly making sounds, not following any commands, moves extremities to painful stimuli. LAB REVIEW: CBC showed a WBC of 13, hemoglobin 9.6, platelets are 103. INR is 3.4. BMP showed sodium 140, potassium 4.1, chloride 103, bicarbonate 28, BUN 38, creatinine is 2.3, calcium 9.9, magnesium 2.2. Microbiology: Repeat blood cultures from 05/06/2018 are negative. CURRENT INPATIENT MEDICATIONS: The patient continues to be on IV meropenem. No other change in the medications today as compared with yesterday. He was given a dose of vitamin K 5 mg subcu in the afternoon. ASSESSMENT AND PLAN: 1. End-stage renal disease, on hemodialysis. Patient's regular dialysis days are Friday, , Friday. He was dialyzed yesterday as per his regular schedule. Next hemodialysis will be tomorrow. 2. Sepsis secondary to Escherichia (E) coli bacteremia. Patient continues to be on IV meropenem. He is hemodynamically stable. Leukocytosis is improving. 3. Acute decompensated combined systolic and diastolic congestive heart failure. Patient got dialysis back to back two days in a row. His volume status is significantly better. Dobutamine is weaned off. Blood pressure is at his baseline. 4. Metabolic encephalopathy. It is secondary to a combination of bacteremia and urinary tract infection (UTI). Patient is still constantly moaning and groaning and not eating anything. 5. Hypothyroidism. Continue current dose of levothyroxine. 6. Nutrition. I discussed the goals of care with patient's again at the bedside. Patient is not a candidate for total parenteral nutrition (TPN) or IV fluids at this time because of heart failure. I offered nasogastric (NG) tube feeding. Patient's will think about it and let us know later on at the end of the day. DISPOSITION: Overall very poor prognosis. Patient is DO NOT RESUSCITATE (DNR)/DO NOT INTUBATE (DNI). Continue the rest of the aggressive care. No tube feedings at this point.
[2018-05-09] VITALS (16 sets, daily range): BP systolic 92–119; BP diastolic 59–80
[2018-05-09] MEDS: MORPHINE 4 MG/ML 1ML VIAL/SYRINGE (J2270) IV PRN (02:50)
[2018-05-09 04:36] LABS: HEMATOCRIT 34.2 % (42.0-52.0); MEAN CORPUSCULAR HEMOGLOBIN 31.5 pg (27.0-33.0); MEAN CORPUSCULAR HGB CONC 32.2 g/dl (32.0-36.5); RED BLOOD COUNT 3.49 10^6/uL (4.30-6.10); WHITE BLOOD COUNT 10.5 10^3/uL (4.0-10.0)
[2018-05-09 04:47] LABS: INR 2.67
[2018-05-09 04:52] LABS: CREATININE FOR GFR 3.28 MG/DL (0.70-1.30); GLOMERULAR FILTRATION RATE 19.2 (>35); MAGNESIUM LEVEL 2.3 MG/DL (1.8-2.4); POTASSIUM SERUM 5.1 MEQ/L (3.5-5.1)
[2018-05-09 04:54] LABS: PLATELET COUNT, AUTOMATED 90 10^3/uL (150-450)
[2018-05-09] MEDS: BRIMONIDINE 0.15% OPHTH SOLN 5 ML OS SCH ×2 (08:46→21:00)
[2018-05-09] MEDS: FLUTICASONE PROP 0.05% NASAL SPRAY 16 GM (FLONASE) SCH (08:47)
[2018-05-09] MEDS: LEVOTHYROXINE 100 MCG (0.1MG) VIAL IV SCH (08:47)
[2018-05-09] MEDS ORDERED: HEPARIN 1,000 UNITS/ML 10ML VIAL (FOR RADIOLOGY& DIALYSIS ONLY) IV ONE (12:45)
[2018-05-09] MEDS ORDERED: HEPARIN 1,000 UNITS/ML 10ML VIAL (FOR RADIOLOGY& DIALYSIS ONLY) XX ONE (12:45)
--- NOTE | 2018-05-09 14:35 | IPNPDOC ---
Subjective Date Seen The patient was seen on 05/09/18. Subjective Chief Complaint/HPI Patient seen and examined at bedside. He remains lethargic and nonresponsive to verbal stimulation or light touch. He does still occasionally moan/grown when repeatedly stimulated. Not following commands at this time. Extensive discussion held with the patient's yesterday, who is agreeable to a temporary NG tube for nutrition. Objective Physical Examination General Exam: Positive: No Acute Distress, Other (patient moaning at times in response to questioning, nonverbal, eyes shut, and not following any commands.) ENT Exam: Positive: Other ENT (bitemporal wasting noted) Chest Exam: Positive: Diminished, Other (patient's ribs noted to be prominent on chest wall) Heart Exam: Positive: Rate Normal, Normal S1, Normal S2 Abdomen Exam: Positive: Soft; Negative: Tenderness Male Exam: Negative: Normal Genital Exam (Left sided nephrostomy tube+) Extremity Exam: Positive: Swelling (1+ pitting edema bileraterally); Negative: Tenderness Assessment /Plan Plan/VTE VTE Prophylaxis Ordered?: Yes Plan Sepsis 2/2 Urinary Tract Infection Patient with a history of recurrent UTI's with cultures previously growing Pseudomonas Blood Cultures positive x 2 for E. Coli from 05/05, repeat cultures from 05/06 negative Urine Culture notable for pseudomonas Cont Meropenem We will cont to monitor the patient in the ICU Septicemia 2/2 UTI Blood Cultures from 05/05 positive for E. Coli Repeat Blood Cultures from 05/06 negative Cont Meropenem Septic vs Cardiogenic Shock The patient has been weaned off of the Dobutamine drip. ESRD on HD Nephrology on board--dialyzing the patient has been a challenge given his hypotension Combined Systolic and Diastolic CHF, decompensated Volume optimization to be achieved via Dialysis as tolerated Toxic metabolic encephalopathy, likely from UTI Lactic Acidosis 2/2 UTI Hx of DVT s/p IVC Filter On Coumadin at baseline Hx of Obstructive Uropathy s/p Left Nephrostomy Tube Patient has tube exchanged q6-8 weeks--last changed 3 weeks ago We will cont to monitor Nutrition NG tube placement ordered for temporary tube feedings Hypertension Antihypertensives held 2/2 Sepsis Hypothyroidism Cont Levothyroxine DVT Prophylaxis on Coumadin Code Status: DNR/DNI, Poor Prognosis, patient remains obtunded. VS, I&O, 24H, Fishbone Vital Signs/I&O Vital Signs Date Time Temp Pulse Resp B/P (MAP) Pulse Ox O2 Delivery O2 Flow Rate FiO2 05/09/18 10:01 93 95/61 (72) 98 4.0 05/09/18 08:01 98.8 24 05/06/18 05:02 50 05/05/18 17:52 Nasal Cannula I&O- Last 24 Hours up to 6 AM 05/09/18 06:00 Intake Total 55 ml Output Total 50 ml Balance 5 ml Laboratory Data 24H LABS Laboratory Tests 2 05/08/18 17:54: Bedside Glucose (Misc Panel) 89 05/09/18 00:05: Bedside Glucose (Misc Panel) 103 05/09/18 03:52: Nucleated Red Blood Cells % (auto) 0.2H, Immature Platelet Fraction 7.3, Prothrombin Time 29.0H, Prothromb Time International Ratio 2.67, Anion Gap 13, Glomerular Filtration Rate 19.2L, Blood Urea Nitrogen 60#H, Creatinine 3.28H, Sodium Level 141, Potassium Level 5.1#, Chloride Level 104, Carbon Dioxide Level 24, Calcium Level 11.0H, Magnesium Level 2.3 CBC/BMP Laboratory Tests 05/09/18 03:52 Red Blood Count 3.49 L, Mean Corpuscular Volume 98.0 H, Mean Corpuscular Hemoglobin 31.5, Mean Corpuscular Hemoglobin Concent 32.2, Red Cell Distribution Width 15.6 H, Calcium Level 11.0 H Microbiology Microbiology 05/06/18 Blood Culture - Preliminary, Resulted No Growth after 48 hours. All Specime... 05/06/18 Blood Culture - Preliminary, Resulted No Growth after 48 hours. All Specime... 05/05/18 Blood Culture - Final, Complete Escherichia Coli 05/05/18 Blood Culture - Final, Complete Escherichia Coli 05/05/18 Urine Culture - Preliminary, Resulted Pseudomonas Aeruginosa YAEL BARROSO MD May 09, 2018 14:35
[2018-05-09] MEDS: MEROPENEM INJ 500 MG in APPROPRIATE DILUENT 1 EA IV SCH (17:16)
[2018-05-09] MEDS: ACETAMINOPHEN 325 MG SUPP PR PRN (18:36)
[2018-05-10] VITALS (9 sets, daily range): BP systolic 93–109; BP diastolic 59–73
[2018-05-10 05:11] LABS: HEMATOCRIT 35.5 % (42.0-52.0); HEMOGLOBIN 11.8 g/dl (13.5-17.5); MEAN CORPUSCULAR HEMOGLOBIN 31.9 pg (27.0-33.0); MEAN CORPUSCULAR HGB CONC 33.2 g/dl (32.0-36.5); MEAN CORPUSCULAR VOLUME 95.9 fl (80.0-96.0); WHITE BLOOD COUNT 7.5 10^3/uL (4.0-10.0)
[2018-05-10 05:22] LABS: INR 2.05; PROTHROMBIN TIME 23.5 SECONDS (12.1-14.4)
[2018-05-10 05:32] LABS: CREATININE FOR GFR 2.97 MG/DL (0.70-1.30); GLOMERULAR FILTRATION RATE 21.5 (>35); MAGNESIUM LEVEL 2.3 MG/DL (1.8-2.4); POTASSIUM SERUM 4.6 MEQ/L (3.5-5.1)
[2018-05-10] MEDS: LEVOTHYROXINE 100 MCG (0.1MG) VIAL IV SCH (08:39)
[2018-05-10] MEDS: BRIMONIDINE 0.15% OPHTH SOLN 5 ML OS SCH ×2 (08:39→21:00)
[2018-05-10] MEDS: FLUTICASONE PROP 0.05% NASAL SPRAY 16 GM (FLONASE) SCH (08:39)
[2018-05-10] MEDS: SCOPOLAMINE 1MG TRANSDERMAL PATCH TOP SCH (09:34)
[2018-05-10] MEDS ORDERED: LIDOCAINE 2% JELLY 30 ML TOP ONE (11:45)
--- NOTE | 2018-05-10 15:18 | IPN ---
DATE: 05/09/2018 SUBJECTIVE: Patient was seen and examined at the bedside today morning in the intensive care unit (ICU). He is still moaning. As reported by his , patient opened eyes today morning. He is not eating or drinking anything. He still is not on any tube feeds at this point. Today is patient's day of dialysis. His leukocytosis is improving at this point. OBJECTIVE: Vital signs: Temperature is 97 degrees Fahrenheit, blood pressure is 101/72, pulse is 95, respiratory rate of 16, saturating 98% on nasal cannula at 4 liters. Intake and output: Urine output recorded is 25 mL. Weight in the bed scale is 59.7 kg. PHYSICAL EXAMINATION: GENERAL: Patient's eyes are closed; otherwise he is moaning and groaning, lying in bed. HEAD AND NECK: Pupils are equally round and reactive to light. Mucous membranes are moist. Neck is supple. There is no jugular venous distention (JVD). CARDIOVASCULAR: S1, S2, irregular rate. Trace edema of the right lower extremity, 1+ edema of the left lower extremity. RESPIRATORY: Decreased breath sounds at the bases. Poor inspiratory effort. No active rales or rhonchi. ABDOMEN: Soft. Positive bowel sounds. Nontender. Left-sided percutaneous nephrostomy tube. GENITOURINARY: No hernias were noted. MUSCULOSKELETAL: Left lower extremity 1+ edema. He is wearing waffle boots on lower extremities. CENTRAL NERVOUS SYSTEM: Patient does not follow commands. Moves extremities to painful stimuli. Eyes are closed at this point. AV ACCESS: He has a right internal jugular (IJ) tunneled hemodialysis catheter. LABORATORY REVIEW: CBC showed a WBC 10.5, hemoglobin 11, platelets are 90. INR is 2.6. BMP showed sodium 141, potassium 5.1, chloride 104, bicarbonate 24, BUN 60, creatinine is 3.2, calcium is 11. Microbiology: Repeat blood cultures from May 06 are negative so far. CURRENT INPATIENT MEDICATIONS: Patient's medications were all reviewed by me. No other change in the medications today as compared with yesterday. ASSESSMENT AND PLAN: 1. End-stage renal disease, on hemodialysis. Today is patient's regular day of dialysis. He will be dialyzed today for clearance. He is not getting much intravenous (IV) fluids, so I will only remove 500 mL of fluid. 2. Sepsis secondary to Escherichia (E) coli bacteremia. Patient continues to be on meropenem. He is hemodynamically stable. Leukocytosis is getting better. 3. Combined systolic and diastolic congestive heart failure. Volume status is better. Fluid removal will be only 500 mL. 4. Metabolic encephalopathy. Patient is still unable to eat anything. He is still moaning and groaning. Continue close monitoring. 5. Nutrition. Patient is going to get the nasogastric tube placement and start the Nepro tube feeds. DISPOSITION: Patient is DO NOT RESUSCITATE, DO NOT INTUBATE. He is otherwise hemodynamically stable. It is okay to downgrade the patient out of intensive care unit (ICU) now.
[2018-05-10] MEDS: MEROPENEM INJ 500 MG in APPROPRIATE DILUENT 1 EA IV SCH (15:55)
--- NOTE | 2018-05-10 16:22 | IPNPDOC ---
Subjective Date Seen The patient was seen on 05/10/18. Subjective Chief Complaint/HPI Patient seen and examined at the bedside. He remains largely unresponsive and obtunded. After the nursing staff had difficulty placing an NG tube in him yesterday, we were able to establish placement today. Once again, an extensive discussion was held at the bedside with the patient's and friends/family at the bedside regarding concern for the patient aspirating tube feeding as he is not protecting his airway and has already had copious amounts of secretions suctioned from his mouth/upper airway by nursing/respiratory staff. The patie nt's has acknowledged and verbalized understanding of this risk, and has requested that we proceed with NG tube placement. Objective Physical Examination General Exam: Positive: Moderate Distress (2/2 ng tube placement, pain), Other (patient moaning at times in response to questioning, nonverbal, eyes shut, and not following any commands.) ENT Exam: Positive: Other ENT (bitemporal wasting noted, +NG Tube) Chest Exam: Positive: Diminished, Other (patient's ribs noted to be prominent on chest wall) Heart Exam: Positive: Rate Normal, Normal S1, Normal S2 Abdomen Exam: Positive: Soft; Negative: Tenderness Male Exam: Negative: Normal Genital Exam (Left sided nephrostomy tube+) Extremity Exam: Negative: Tenderness, Swelling Assessment /Plan Plan/VTE VTE Prophylaxis Ordered?: Yes Plan Sepsis 2/2 Urinary Tract Infection Patient with a history of recurrent UTI's with cultures previously growing Pseudomonas Blood Cultures positive x 2 for E. Coli from 05/05, repeat cultures from 05/06 negative Urine Culture notable for pseudomonas Cont Meropenem We will cont to monitor the patient in the ICU Septicemia 2/2 UTI Blood Cultures from 05/05 positive for E. Coli Repeat Blood Cultures from 05/06 negative Cont Meropenem Malnourishment 2/2 Inability to tolerate PO Diet due to Alteration in Mental Status--s/p NG Tube placement s/p NG tube placement 05/10/18. An extensive discussion was held at the bedside with the patient's and friends/family at the bedside regarding concern for the patient aspirating tube feeding as he is not protecting his airway and has already had copious amounts of secretions suctioned from his mouth/upper airway by nursing/respiratory staff. The patient's has acknowledged and verbalized understanding of this risk, and has requested that we proceed with NG tube placement. Nepro tube feeding started with increase in rate depending on tolerability Septic vs Cardiogenic Shock, resolved The patient has been weaned off of the Dobutamine drip. ESRD on HD Nephrology on board for dialysis Combined Systolic and Diastolic CHF, decompensated Volume optimization to be achieved via Dialysis as tolerated Toxic metabolic encephalopathy, likely from UTI Lactic Acidosis 2/2 UTI Hx of DVT s/p IVC Filter On Coumadin at baseline Hx of Obstructive Uropathy s/p Left Nephrostomy Tube Patient has tube exchanged q6-8 weeks--last changed 3 weeks ago We will cont to monitor Nutrition NG tube placement ordered for temporary tube feedings Hypertension Antihypertensives held 2/2 Sepsis Hypothyroidism Cont Levothyroxine DVT Prophylaxis on Coumadin Code Status: DNR/DNI, Poor Prognosis, patient remains obtunded. VS, I&O, 24H, Fishbone Vital Signs/I&O Vital Signs Date Time Temp Pulse Resp B/P (MAP) Pulse Ox O2 Delivery O2 Flow Rate FiO2 05/10/18 14:50 3.0 05/10/18 12:00 98.0 91 15 104/59 (74) 100 05/06/18 05:02 50 05/05/18 17:52 Nasal Cannula I&O- Last 24 Hours up to 6 AM 05/10/18 06:00 Intake Total 50 ml Output Total 500 ml Balance -450 ml Laboratory Data 24H LABS Laboratory Tests 2 05/09/18 17:55: Bedside Glucose (Misc Panel) 99 05/10/18 04:26: Nucleated Red Blood Cells % (auto) 0.7H, Prothrombin Time 23.5H, Prothromb Time International Ratio 2.05, Anion Gap 12, Glomerular Filtration Rate 21.5L, Blood Urea Nitrogen 55H, Creatinine 2.97H, Sodium Level 140, Potassium Level 4.6, Chloride Level 104, Carbon Dioxide Level 24, Calcium Level 11.0H, Magnesium Level 2.3 05/10/18 11:49: Bedside Glucose (Misc Panel) 112H CBC/BMP Laboratory Tests 05/10/18 04:26 Red Blood Count 3.70 L, Mean Corpuscular Volume 95.9, Mean Corpuscular Hemoglobin 31.9, Mean Corpuscular Hemoglobin Concent 33.2, Red Cell Distribution Width 15.6 H, Calcium Level 11.0 H Microbiology Microbiology 05/06/18 Blood Culture - Preliminary, Resulted No Growth after 72 hours. All specime... 05/06/18 Blood Culture - Preliminary, Resulted No Growth after 72 hours. All specime... 05/05/18 Blood Culture - Final, Complete Escherichia Coli 05/05/18 Blood Culture - Final, Complete Escherichia Coli 05/05/18 Urine Culture - Final, Complete Pseudomonas Aeruginosa Enterococcus Faecalis YAEL BARROSO MD May 10, 2018 16:22
[2018-05-11] MEDS: ACETAMINOPHEN 650 MG SUPP PR PRN (02:58)
[2018-05-11 04:00] VITALS: BP 84/59
[2018-05-11 05:10] LABS: HEMATOCRIT 32.6 % (42.0-52.0); HEMOGLOBIN 10.9 g/dl (13.5-17.5); MEAN CORPUSCULAR HEMOGLOBIN 32.1 pg (27.0-33.0); MEAN CORPUSCULAR HGB CONC 33.4 g/dl (32.0-36.5); MEAN CORPUSCULAR VOLUME 95.9 fl (80.0-96.0); WHITE BLOOD COUNT 10.3 10^3/uL (4.0-10.0)
[2018-05-11 05:20] LABS: INR 1.99
[2018-05-11 05:25] LABS: CALCIUM LEVEL 10.6 MG/DL (8.8-10.2); CREATININE FOR GFR 3.97 MG/DL (0.70-1.30); GLOMERULAR FILTRATION RATE 15.4 (>35); MAGNESIUM LEVEL 2.4 MG/DL (1.8-2.4)
[2018-05-11 05:31] LABS: PLATELET COUNT, AUTOMATED 59 10^3/uL (150-450)
--- NOTE | 2018-05-11 06:51 | REP ---
PORTABLE CHEST: AP portable view of the chest is performed and compared to prior study of 05/05/2018. There is cardiomegaly. Increased interstitial markings are stable. I see no definite new infiltrate. Right central venous catheter is again noted. There is a nasogastric tube present. The side port appears to be at the gastroesophageal junction. Electronically Signed by Delmer Christopher MD 05/11/2018 09:17 A
[2018-05-11 08:00] VITALS: BP 83/53
[2018-05-11] MEDS: LEVOTHYROXINE 100 MCG (0.1MG) VIAL IV SCH (09:06)
[2018-05-11] MEDS: BRIMONIDINE 0.15% OPHTH SOLN 5 ML OS SCH ×2 (09:06→21:25)
[2018-05-11] MEDS: FLUTICASONE PROP 0.05% NASAL SPRAY 16 GM (FLONASE) SCH (09:06)
--- NOTE | 2018-05-11 11:06 | IPN ---
DATE OF SERVICE: 05/10/2018 SUBJECTIVE: Patient seen and examined at the bedside in the intensive care unit. He remains unresponsive and obtunded, moaning and groaning. states he has not recognized her nor said anything comprehensible. Nursing staff was able to place an NG tube. REVIEW OF SYSTEMS: Unable to obtain secondary to clinical condition. VITAL SIGNS: Temperature 98.2, pulse 94, respiratory rate 20, blood pressure 106/64, saturating 97-98% on 3 liters nasal cannula. INTAKE AND OUTPUT: Intake yesterday was only 25 mL. Dialysis yesterday removed 500 mL. Weight on the bed scale today is not recorded. PHYSICAL EXAMINATION: GENERAL: Patient is seen in the intensive care unit lying in bed, elderly, frail, cachectic male. Head of the bed is elevated. Patient is moaning and groaning, but does not respond to any questioning nor does he follow any commands. There is bitemporal wasting. Nasal cannula is in place. CARDIAC: S1, S2. There is diminished edema in the peripheries. LUNGS: Show bilateral breath sounds. No tachypnea. There is diminished air movement at the bases. ABDOMEN: Soft. There is a left sided nephrostomy. There is trace edema in the dependent areas. There is a tunneled hemodialysis catheter present in the right chest wall. NEUROLOGIC: Patient is lethargic, does not follow any commands. Eyes are closed. He is moaning. LABORATORIES: White count 7.6, hemoglobin 11.8, sodium 140, potassium 4.6, magnesium 2.3. INPATIENT MEDICATIONS: Reviewed by myself. He continues on meropenem. The remainder of medications are unchanged from prior. PROBLEMS: 1. End stage renal disease on hemodialysis on Friday, , Friday schedule. He was dialyzed yesterday with bare minimum fluid removed as he is not really having much oral intake. His electrolytes are acceptable. Next hemodialysis will be on Friday per his maintenance schedule with goal fluid removal as indicated by volume status. 2. Sepsis secondary to E. coli bacteremia and history of recurrent UTIs. Patient continues on meropenem. All of his home antihypertensives are held. His white count is down trending. His repeat blood cultures show no growth. He is not requiring any pressor support. 3. Combined systolic and diastolic congestive heart failure (CHF). Volume status has improved and is principally regulated by hemodialysis. At present, he is not having much oral intake and his last dialysis treatment was quite gentle. 4. Protein calorie malnutrition. Presently with insufficient oral intake secondary to altered mental status. NG tube placement and Nepro tube feeds are planned for today. 5. Hypothyroidism. The patient continues on IV levothyroxine. 6. Anemia related to chronic renal failure. Hemoglobin is at goal. He continues on Aranesp.
[2018-05-11 12:00] VITALS: BP 76/54
--- NOTE | 2018-05-11 14:55 | IPNPDOC ---
Subjective Date Seen The patient was seen on 05/11/18. Subjective Chief Complaint/HPI Patient seen and examined at bedside. The patient is more obtunded today, and is not moaning/groaning like he has been doing for the last several days. He appears more lethargic. The patient's blood pressure has also remained borderline low this morning. He was noted to febrile yesterday, and his white blood cell count has trended upward. Objective Physical Examination General Exam: Positive: Other (patient obtunded, nonverbal, eyes shut, and not following any commands.) ENT Exam: Positive: Other ENT (bitemporal wasting noted, +NG Tube) Chest Exam: Positive: Diminished, Other (patient's ribs noted to be prominent on chest wall) Heart Exam: Positive: Rate Normal, Normal S1, Normal S2 Abdomen Exam: Positive: Soft; Negative: Tenderness Male Exam: Negative: Normal Genital Exam (Left sided nephrostomy tube+) Extremity Exam: Negative: Tenderness, Swelling Assessment /Plan Plan/VTE VTE Prophylaxis Ordered?: Yes Plan Sepsis 2/2 Urinary Tract Infection Patient with a history of recurrent UTI's with cultures previously growing Pseudomonas Blood Cultures positive x 2 for E. Coli from 05/05, repeat cultures from 05/06 negative Urine Culture notable for pseudomonas Cont Meropenem We will cont to monitor the patient in the ICU Septicemia 2/2 UTI Blood Cultures from 05/05 positive for E. Coli Repeat Blood Cultures from 05/06 negative Cont Meropenem Malnourishment 2/2 Inability to tolerate PO Diet due to Alteration in Mental Status--s/p NG Tube placement s/p NG tube placement 05/10/18. An extensive discussion was held at the bedside with the patient's and friends/family at the bedside regarding concern for the patient aspirating tube feeding as he is not protecting his airway and has already had copious amounts of secretions suctioned from his mouth/upper airway by nursing/respiratory staff. The patient's has acknowledged and verbalized understanding of this risk, and has requested that we proceed with NG tube placement. Nepro tube feeding started with increase in rate depending on tolerability Septic vs Cardiogenic Shock, resolved The patient has been weaned off of the Dobutamine drip. ESRD on HD Nephrology on board for dialysis Combined Systolic and Diastolic CHF, decompensated Volume optimization to be achieved via Dialysis as tolerated Toxic metabolic encephalopathy, likely from UTI Lactic Acidosis 2/2 UTI Hx of DVT s/p IVC Filter On Coumadin at baseline Hx of Obstructive Uropathy s/p Left Nephrostomy Tube Patient has tube exchanged q6-8 weeks--last changed 3 weeks ago We will cont to monitor Nutrition NG tube for temporary tube feedings Hypertension Antihypertensives held 2/2 Sepsis Hypothyroidism Cont Levothyroxine DVT Prophylaxis on Coumadin Code Status: DNR/DNI, Poor Prognosis, patient remains obtunded. VS, I&O, 24H, Fishbone Vital Signs/I&O Vital Signs Date Time Temp Pulse Resp B/P (MAP) Pulse Ox O2 Delivery O2 Flow Rate FiO2 05/11/18 12:00 3.0 05/11/18 12:00 96.3 98 24 76/54 (61) 95 05/06/18 05:02 50 05/05/18 17:52 Nasal Cannula I&O- Last 24 Hours up to 6 AM 05/11/18 06:00 Intake Total 166 ml Output Total 50 ml Balance 116 ml Laboratory Data 24H LABS Laboratory Tests 2 05/10/18 17:22: Bedside Glucose (Misc Panel) 110 05/10/18 21:52: Bedside Glucose (Misc Panel) 118H 05/11/18 04:45: Nucleated Red Blood Cells % (auto) 0.7H, Immature Platelet Fraction 12.9H, Prothrombin Time 23.0H, Prothromb Time International Ratio 1.99, Anion Gap 10, Glomerular Filtration Rate 15.4L, Blood Urea Nitrogen 81H, Creatinine 3.97H, Sodium Level 141, Potassium Level 5.0, Chloride Level 106, Carbon Dioxide Level 25, Calcium Level 10.6H, Magnesium Level 2.4 05/11/18 06:15: Bedside Glucose (Misc Panel) 133H 05/11/18 11:46: Bedside Glucose (Misc Panel) 121H CBC/BMP Laboratory Tests 05/11/18 04:45 Red Blood Count 3.40 L, Mean Corpuscular Volume 95.9, Mean Corpuscular Hemoglobin 32.1, Mean Corpuscular Hemoglobin Concent 33.4, Red Cell Distribution Width 15.4 H, Calcium Level 10.6 H Microbiology Microbiology 05/06/18 Blood Culture - Preliminary, Resulted No Growth after 72 hours. All specime... 05/06/18 Blood Culture - Preliminary, Resulted No Growth after 72 hours. All specime... 05/05/18 Blood Culture - Final, Complete Escherichia Coli 05/05/18 Blood Culture - Final, Complete Escherichia Coli 05/05/18 Urine Culture - Final, Complete Pseudomonas Aeruginosa Enterococcus Faecalis YAEL BARROSO MD May 11, 2018 14:55
[2018-05-11] MEDS: MEROPENEM INJ 500 MG in APPROPRIATE DILUENT 1 EA IV SCH (15:53)
[2018-05-11 16:00] VITALS: BP 80/50
[2018-05-11] MEDS ORDERED: PILL CRUSHER/CUTTER 1 EACH XX PRN (17:15)
[2018-05-11] MEDS: MIDODRINE 5 MG TAB PO SCH (17:15)
[2018-05-11 20:00] VITALS: BP 78/46
[2018-05-11 22:30] VITALS: BP 80/52
[2018-05-12] VITALS (8 sets, daily range): BP systolic 74–117; BP diastolic 49–63
[2018-05-12 05:24] LABS: HEMATOCRIT 36.6 % (42.0-52.0); HEMOGLOBIN 12.3 g/dl (13.5-17.5); MEAN CORPUSCULAR HEMOGLOBIN 32.1 pg (27.0-33.0); MEAN CORPUSCULAR HGB CONC 33.6 g/dl (32.0-36.5); MEAN CORPUSCULAR VOLUME 95.6 fl (80.0-96.0); RED BLOOD COUNT 3.83 10^6/uL (4.30-6.10); WHITE BLOOD COUNT 15.7 10^3/uL (4.0-10.0)
[2018-05-12 05:26] LABS: INR 1.94; PROTHROMBIN TIME 22.5 SECONDS (12.1-14.4)
[2018-05-12 05:28] LABS: PLATELET COUNT, AUTOMATED 60 10^3/uL (150-450)
[2018-05-12 05:41] LABS: CALCIUM LEVEL 10.1 MG/DL (8.8-10.2); CREATININE FOR GFR 4.72 MG/DL (0.70-1.30); GLOMERULAR FILTRATION RATE 12.6 (>35); MAGNESIUM LEVEL 2.4 MG/DL (1.8-2.4); POTASSIUM SERUM 5.1 MEQ/L (3.5-5.1)
--- NOTE | 2018-05-12 07:48 | IPN ---
DATE OF SERVICE: 05/11/2018 SUBJECTIVE: Patient seen and examined in the progressive care unit this morning. His and dampener are present. He remains obtunded, and moaning and groaning. His NG tube was placed yesterday and he is receiving a low rate of Nepro feeds. His blood pressures remain very, very soft and my principle concern is that he will have difficulty tolerating hemodialysis tomorrow and I discussed this at length with his . VITAL SIGNS: Temperature 98.0, pulse 90, respiratory rate 22, blood pressure 80/50, saturating 95% on 3 liters nasal cannula. INTAKE AND OUTPUT: Intake yesterday was 90 mL only. Intake thus far today is about 700 mL. Weight on the bed scale today is not recorded. PHYSICAL EXAMINATION: GENERAL: Patient is seen lying in bed, head of bed elevated, very frail appearing elderly male. Eyes are closed. Lethargic. Unresponsive. Moans and groans to tactile stimulus, but does not otherwise respond. There is bitemporal wasting. There is nasal cannula is in place. There is NG tube in place. CARDIAC: S1, S2. There is 1+ in the peripheries. LUNGS: Show bilateral breath sounds with diminished air movement and scattered rhonchus. ABDOMEN: Soft. There is a tunneled hemodialysis catheter present in the right chest wall. LABORATORIES: White count 10.3, hemoglobin 10.9, platelets 59, sodium 141, potassium 5.0, bicarbonate 25. Microbiology: Repeat blood cultures no growth for five days for two sets. INPATIENT MEDICATIONS: Reviewed by myself. I started the patient on midodrine 5 mg by mouth three times a day. Remainder of medications are unchanged from prior. PROBLEMS: 1. Sepsis secondary to E. coli bacteremia. Patient continues on meropenem. His repeat blood cultures from May 06 have been negative for the past five days. He is hemodynamically unstable today, systolic is 80s to 90s. He is not suitable for fluid administration due to renal failure, combined congestive heart failure (CHF), and fluid overload. I am starting him on midodrine. His white count did bump up today. His overall prognosis is poor and I would not want to dialyze him with ionotropic or pressor support. 2. End stage renal disease on hemodialysis on Friday, , Friday schedule. Given the hypotension, he is likely to have trouble tolerating dialysis and fluid removal tomorrow. He is being started on midodrine. I have discussed with his regarding anticipated difficulty in hemodialysis tomorrow given the congestive heart failure (CHF), hypotension, and recent sepsis. He has not really had much in the way of intake the past several days and does not need and aggressive treatment. We will try for a gentle ultrafiltration with dialysis tomorrow with use of midodrine. 3. Decompensated systolic and diastolic congestive heart failure (CHF). His oxygen requirements have been stable. He has not had much in the way of intake the past few days. His tube feeds are presently running at a low rate. We will try for ultrafiltration and fluid removal tomorrow as tolerated by his hemodynamics. 4. Protein calorie malnutrition and altered mental status. Presently with NG tube and Nepro tube feeds at low rate. There is a concern for aspiration.
[2018-05-12] MEDS: MIDODRINE 5 MG TAB PO SCH ×3 (08:42→17:14)
[2018-05-12] MEDS: FLUTICASONE PROP 0.05% NASAL SPRAY 16 GM (FLONASE) SCH (08:42)
[2018-05-12] MEDS: LEVOTHYROXINE 100 MCG (0.1MG) VIAL IV SCH (08:42)
[2018-05-12] MEDS: BRIMONIDINE 0.15% OPHTH SOLN 5 ML OS SCH ×2 (08:42→20:46)
[2018-05-12] MEDS ORDERED: HEPARIN 1,000 UNITS/ML 10ML VIAL (FOR RADIOLOGY& DIALYSIS ONLY) XX ONE (12:45)
--- NOTE | 2018-05-12 16:31 | IPNPDOC ---
Subjective Date Seen The patient was seen on 05/12/18. Subjective Chief Complaint/HPI Patient seen and examined at bedside. He remains obtunded. His blood pressure was noted to be low and he has been started on Midodrine and he will be given albumin infusions today by nephrology. He is scheduled for dialysis today, and it remains to be seen how he will tolerate this given his blood pressure readings. Objective Physical Examination General Exam: Positive: Other (patient obtunded, nonverbal, eyes shut, and not following any commands.) ENT Exam: Positive: Other ENT (bitemporal wasting noted, +NG Tube) Chest Exam: Positive: Diminished, Other (patient's ribs noted to be prominent on chest wall) Heart Exam: Positive: Rate Normal, Normal S1, Normal S2 Abdomen Exam: Positive: Soft; Negative: Tenderness Male Exam: Negative: Normal Genital Exam (Left sided nephrostomy tube+) Extremity Exam: Negative: Tenderness, Swelling Assessment /Plan Plan/VTE VTE Prophylaxis Ordered?: Yes Plan Sepsis 2/2 Urinary Tract Infection Patient with a history of recurrent UTI's with cultures previously growing Pseudomonas Blood Cultures positive x 2 for E. Coli from 05/05, repeat cultures from 05/06 negative Urine Culture notable for pseudomonas Cont Meropenem We will cont to monitor the patient in the ICU Septicemia 2/2 UTI Blood Cultures from 05/05 positive for E. Coli Repeat Blood Cultures from 05/06 negative Cont Meropenem Malnourishment 2/2 Inability to tolerate PO Diet due to Alteration in Mental Status--s/p NG Tube placement s/p NG tube placement 05/10/18. An extensive discussion was held at the bedside with the patient's and friends/family at the bedside regarding concern for the patient aspirating tube feeding as he is not protecting his airway and has already had copious amounts of secretions suctioned from his mouth/upper airway by nursing/respiratory staff. The patient's has acknowledged and verbalized understanding of this risk, and has requested that we proceed with NG tube placement. Nepro tube feeding started with increase in rate depending on tolerability Septic vs Cardiogenic Shock, resolved The patient has been weaned off of the Dobutamine drip. ESRD on HD Nephrology on board for dialysis Combined Systolic and Diastolic CHF, decompensated Volume optimization to be achieved via Dialysis as tolerated Toxic metabolic encephalopathy, likely from UTI Lactic Acidosis 2/2 UTI Hx of DVT s/p IVC Filter On Coumadin at baseline Hx of Obstructive Uropathy s/p Left Nephrostomy Tube Patient has tube exchanged q6-8 weeks--last changed 3 weeks ago We will cont to monitor Nutrition NG tube for temporary tube feedings Hypertension Antihypertensives held 2/2 Sepsis Hypothyroidism Cont Levothyroxine DVT Prophylaxis on Coumadin Code Status: DNR/DNI, Poor Prognosis, patient remains obtunded. VS, I&O, 24H, Fishbone Vital Signs/I&O Vital Signs Date Time Temp Pulse Resp B/P (MAP) Pulse Ox O2 Delivery O2 Flow Rate FiO2 05/12/18 12:00 98.6 92 32 80/60 (67) 97 3.0 05/06/18 05:02 50 I&O- Last 24 Hours up to 6 AM 05/12/18 06:00 Intake Total 770 ml Output Total 20 ml Balance 750 ml Laboratory Data 24H LABS Laboratory Tests 2 05/11/18 17:11: Bedside Glucose (Misc Panel) 158H 05/12/18 00:03: Bedside Glucose (Misc Panel) 125H 05/12/18 05:01: Nucleated Red Blood Cells % (auto) 0.5H, Immature Platelet Fraction 13.0H, Prothrombin Time 22.5H, Prothromb Time International Ratio 1.94, Anion Gap 13, Glomerular Filtration Rate 12.6L, Lactic Acid Level 2.5*H, Blood Urea Nitrogen 108H, Creatinine 4.72H, Sodium Level 142, Potassium Level 5.1, Chloride Level 105, Carbon Dioxide Level 24, Calcium Level 10.1, Magnesium Level 2.4 05/12/18 06:28: Bedside Glucose (Misc Panel) 139H 05/12/18 09:32: Lactic Acid Followup at 4 Hours 2.7*H CBC/BMP Laboratory Tests 05/12/18 05:01 Red Blood Count 3.83 L, Mean Corpuscular Volume 95.6, Mean Corpuscular Hemoglobin 32.1, Mean Corpuscular Hemoglobin Concent 33.6, Red Cell Distribution Width 15.7 H, Calcium Level 10.1 Microbiology Microbiology 05/06/18 Blood Culture - Final, Complete NO GROWTH AFTER 5 DAYS 05/06/18 Blood Culture - Final, Complete NO GROWTH AFTER 5 DAYS 05/05/18 Blood Culture - Final, Complete Escherichia Coli 05/05/18 Blood Culture - Final, Complete Escherichia Coli 05/05/18 Urine Culture - Final, Complete Pseudomonas Aeruginosa Enterococcus Faecalis YAEL BARROSO MD May 12, 2018 16:31
[2018-05-12] MEDS ORDERED: WARFARIN SOD 1 MG TAB NG SCH (17:00)
[2018-05-12] MEDS: MEROPENEM INJ 500 MG in APPROPRIATE DILUENT 1 EA IV SCH (17:14)
--- NOTE | 2018-05-12 18:26 | IPN ---
DATE: 05/12/2018 SUBJECTIVE: Adrian is seen and examined this morning at the bedside. He remains completely obtunded and continues on nasogastric tube (NGT) feeds. H is blood pressures have been quite soft. He was started on midodrine yesterday, and I am increasing the dose of midodrine today. I had a lengthy discussion with his , Zuleima, at the bedside regarding his overall very poor prognosis, and she wishes to continue with full supportive measures at this time. He will be dialyzed with the use of midodrine and also with albumin support with a small goal for fluid removal. REVIEW OF SYSTEMS: Unable to obtain secondary to clinical condition. VITAL SIGNS: Temperature 97.8, pulse 98, respiratory rate 30, blood pressure 95/63, saturating 92-97% on 3 liters nasal cannula. Intake yesterday was 840. Hemodialysis today removed 1 liters. Weight in the bed scale today is 56 kg, which is decreased from prior. GENERAL: Patient is seen lying in bed, head of the bed elevated. Elderly and very frail-appearing male, obtunded, eyes closed. Occasionally moans but does not open eyes or respond to any commands. There is bitemporal wasting. There is NG tube in place. Nasal cannula in place. There are shallow respirations. There is air entry bilaterally. HEART: Sounds are regular, S1, S2. There is pedal edema present. ABDOMEN: Soft. There are bowel sounds. LABORATORY DATA: White count 15.7, hemoglobin 12.3, platelets 60. Sodium 142, potassium 5.1, BUN 108, magnesium 2.4. INPATIENT MEDICATIONS: Reviewed by myself. I increased his midodrine to 10 mg by mouth three times a day. He also received 2 units of albumin with dialysis today. Remainder of medications is unchanged from prior. PROBLEMS: 1. End-stage renal disease, on hemodialysis on Friday, , Friday schedule. I am worry of dialyzing Adrian given his hypotension. He was started on midodrine yesterday, and I have increased this to 10 mg via NG tube three times a day now. He is dialyzed with albumin support. He received albumin 25%, 25 grams. We are only taking off 1 liter of fluid, because he has not really had much intake, and his Nepro tube feeds are at a low rate. I had a lengthy discussion with his today regarding his overall poor prognosis, and I think it is quite likely that he may not survive this admission. Zuleima is his healthcare proxy and would like us to continue with full measures and continue with dialysis at present time. We will respect her wishes. 2. Sepsis. Recent Escherichia (E) coli bacteremia. Continues on meropenem. Repeat blood cultures from May 06 have been negative for two sets. He remains hemodynamically unstable. His lactic acid is not very impressive. Systolic is 80s to 90s. Midodrine is increased to 10 mg by mouth three times a day. His white count is increasing. He is possibly aspirating. His overall prognosis is very poor. 3. Decompensated systolic and diastolic congestive heart failure. Oxygen requirements have been stable. His weights have actually significantly down-trended. He has been altered and not had much intake. He continues on low-rate tube feeds. We are only removing 1 liter of fluid with dialysis today. 4. Protein calorie malnutrition, altered mental status. He remains obtunded. Continues with NG tube and Nepro tube feeds. DISPOSITION: Discussed poor prognosis at length with his . In view of his age, end-stage renal disease, combined congestive heart failure, deconditioning, altered mentation, protein calorie malnutrition, and recent episode of sepsis, I advised that it is becoming quite difficult to satisfactorily dialyze him. We are using midodrine and albumin. I would not dialyzed him with pressors or inotropes. His , who is his healthcare proxy, wishes to continue full measures at this time. We will continue until she decides otherwise.
[2018-05-13 04:00] VITALS: BP 89/61
[2018-05-13 06:45] LABS: CALCIUM LEVEL 9.4 MG/DL (8.8-10.2); CREATININE FOR GFR 3.86 MG/DL (0.70-1.30); GLOMERULAR FILTRATION RATE 15.9 (>35); MAGNESIUM LEVEL 2.3 MG/DL (1.8-2.4); POTASSIUM SERUM 4.9 MEQ/L (3.5-5.1)
[2018-05-13 06:49] LABS: INR 1.71; PROTHROMBIN TIME 20.4 SECONDS (12.1-14.4)
[2018-05-13] MEDS: MIDODRINE 5 MG TAB PO SCH ×3 (07:52→16:12)
[2018-05-13] MEDS: LEVOTHYROXINE 100 MCG (0.1MG) VIAL IV SCH (07:52)
[2018-05-13] MEDS: SCOPOLAMINE 1MG TRANSDERMAL PATCH TOP SCH (07:53)
[2018-05-13] MEDS: FLUTICASONE PROP 0.05% NASAL SPRAY 16 GM (FLONASE) SCH (07:53)
[2018-05-13] MEDS: BRIMONIDINE 0.15% OPHTH SOLN 5 ML OS SCH ×2 (07:53→20:16)
[2018-05-13 08:00] VITALS: BP 60/48
[2018-05-13 08:44] VITALS: BP 82/52
[2018-05-13 09:19] LABS: HEMATOCRIT 36.1 % (42.0-52.0); MEAN CORPUSCULAR HEMOGLOBIN 32.4 pg (27.0-33.0); MEAN CORPUSCULAR HGB CONC 33.2 g/dl (32.0-36.5); MEAN CORPUSCULAR VOLUME 97.6 fl (80.0-96.0); WHITE BLOOD COUNT 21.8 10^3/uL (4.0-10.0)
[2018-05-13 09:20] LABS: PLATELET COUNT, AUTOMATED 67 10^3/uL (150-450)
[2018-05-13 12:00] VITALS: BP 99/54
[2018-05-13] MEDS ORDERED: SLF 3 ML SYR IV PRN (13:00)
[2018-05-13] MEDS: SLF 3 ML SYR IV SCH ×2 (13:11→20:17)
[2018-05-13] MEDS ORDERED: VANCOMYCIN HCL 1,000 MG, VIAL MATE ADAPTER 1 EACH in D5W 250 ML IV ONE (14:00)
--- NOTE | 2018-05-13 14:01 | PHACANCOPD ---
PHARMACY VANCOMYCIN DOSING Pt Demographics Demographics Patient Age:88 , Weight:54.600 , Gender: male Adjusted Body Weight Date: 05/13/18, Adjusted Body Weight: Kg Events Past 24 Hours Events Past 24 Hours: YES: Dialysis, Fever, Elevation in WBC; NO: Diuretic Therapy, Change in CrCl, Pending Diagnostics, Pending Procedures, Other Vancomycin Vancomycin indication: SEPSIS Vancomycin Target Ranges: 15-20 mcg/ml Vancomycin Load Y/N: Yes Load Dose Date Time Vancomycin Load Dose: 1000mg Date: 05/13 Time: 1400 Vancomycin Dose Date: 05/13/18. Current Vancomycin Dose: [750mg after HD] Intermittent Dosing?: No Labs Labs Vital Signs Label Value Date Time Patient Temperature 99.4 degrees F 05/13/18 0800 Temperature Source Temporal 05/13/18 0800 Item Value Date Time White Blood Count 15.7 10^3/uL H 05/12/18 0501 White Blood Count 21.8 10^3/uL H 05/13/18 0856 White Blood Count 10.3 10^3/uL H 05/11/18 0445 Immature Platelet Fraction 12.9 % H 05/11/18 0445 Immature Platelet Fraction 13.0 % H 05/12/18 0501 Immature Platelet Fraction 13.9 % H 05/13/18 0856 Lactic Acid Level 2.5 MMOL/L *H 05/12/18 0501 Lactic Acid Followup at 4 Hours 2.7 MMOL/L *H 05/12/18 0932 Micro Microbiology 05/13/18 Blood Culture, Received Pending 05/06/18 Blood Culture - Final, Complete NO GROWTH AFTER 5 DAYS 05/06/18 Blood Culture - Final, Complete NO GROWTH AFTER 5 DAYS 05/05/18 Blood Culture - Final, Complete Escherichia Coli 05/05/18 Blood Culture - Final, Complete Escherichia Coli 05/13/18 Urine Culture, Received Pending 05/13/18 Urine Culture, Received Pending 05/05/18 Urine Culture - Final, Complete Pseudomonas Aeruginosa Enterococcus Faecalis Creatinine Clearance Date:05/13/18. Creatinine Clearance: . Assessment and Plan Maintaining Current Dose?: Yes Reason for dose change: No Dose Change Pharmacist Note Pharmacist Note Date: 05/13/18. Pharmacist note: Patient was started on Vancomycin today after becoming septic. His WBC and CRP have been trending up over the past couple days, his lactic acid is elevated and he has been experiencing low grade fevers. Patient has been on Meropenem for 7 days with worsening of his condition. Physician has ordered repeat Urine cultures, blood cultures and chest Xray. Patient has been on Vancomycin in the past but no level has been drawn. He will be loaded with Vancomycin 1000mg today then continued on Vanco 750mg after HD. His dialysis days are Friday, , and Friday currently. He is not getting much fluid removed from recent dialysis sessions due to poor PO intake and low blood pressure. We will monitor his levels closely and make adjustments as needed. DREW [facility] May 13, 2018 14:01
--- NOTE | 2018-05-13 14:44 | REP ---
Clinical: Aspiration pneumonia . Comparison: 05/10/2018 . Findings: Increasing consolidation involving the left mid to lower lung zone and new right lower lobe atelectasis/early infiltrate is appreciated. Left effusion cannot be excluded. No pneumothorax. Mediastinum and cardiac silhouette are incompletely evaluated due to overlying opacities. Stable atherosclerotic changes to the aorta noted. Double lumen dialysis catheter extends into the SVC. Nasogastric tube courses below left hemidiaphragm. Impression: Increasing left-sided consolidations with possible effusion and new right lower lobe infiltrate/atelectasis. Electronically Signed by Jignesh Tatum MD 05/13/2018 02:36 P
[2018-05-13 16:00] VITALS: BP 91/62
[2018-05-13] MEDS: WARFARIN SOD 2 MG TAB NG SCH (16:13)
[2018-05-13] MEDS: MEROPENEM INJ 500 MG in APPROPRIATE DILUENT 1 EA IV SCH (16:22)
--- NOTE | 2018-05-13 16:53 | IPNPDOC ---
Subjective Date Seen The patient was seen on 05/13/18. Subjective Chief Complaint/HPI Patient seen and examined at the bedside. He continues to remain obtunded with minimal interaction. The patient's white blood cell count has been trending upward, and he has been noted to have a copious amount of thick brown sputum upon respiratory suctioning. It does appear to look like aspiration of tube feeds. Objective Physical Examination General Exam: Positive: Other (patient obtunded, nonverbal, eyes shut, and not following any commands.) ENT Exam: Positive: Other ENT (bitemporal wasting noted, +NG Tube) Chest Exam: Positive: Rales (bibasilar), Wheezing, Diminished, Other (patient's ribs noted to be prominent on chest wall) Heart Exam: Positive: Rate Normal, Normal S1, Normal S2 Abdomen Exam: Positive: Soft; Negative: Tenderness Male Exam: Negative: Normal Genital Exam (Left sided nephrostomy tube+) Extremity Exam: Positive: Swelling (2+ pitting edema in the lower extremities); Negative: Tenderness Assessment /Plan Plan/VTE VTE Prophylaxis Ordered?: Yes Plan Sepsis 2/2 Urinary Tract Infection, Aspiration Pneumonia Patient with a history of recurrent UTI's with cultures previously growing Pseudomonas Blood Cultures positive x 2 for E. Coli from 05/05, repeat cultures from 05/06 negative Urine Culture notable for pseudomonas Cont Meropenem Patient noted to have a copious amount of thick brown sputum on respiratory suctioning. This is likely aspiration of his tube feeding. Chest x-ray notable for bilateral lower lobe infiltrates which would explain the patient's worsening white blood cell count, and respiratory status. Repeat blood culture order set sent Vancomycin added for empiric coverage Septicemia 2/2 UTI, resolved Blood Cultures from 05/05 positive for E. Coli Repeat Blood Cultures from 05/06 negative Cont Meropenem, Vanco Repeat Blood culture set ordered Malnourishment 2/2 Inability to tolerate PO Diet due to Alteration in Mental Status--s/p NG Tube placement s/p NG tube placement 05/10/18. An extensive discussion was held at the bedside with the patient's and friends/family at the bedside regarding concern for the patient aspirating tube feeding as he is not protecting his airway and has already had copious amounts of secretions suctioned from his mouth/upper airway by nursing/respiratory staff. The patient's has acknowledged and verbalized understanding of this risk, and has requested that we proceed with NG tube placement. Nepro tube feeding started with increase in rate depending on tolerability Septic vs Cardiogenic Shock, resolved The patient has been weaned off of the Dobutamine drip. ESRD on HD Nephrology on board for dialysis Combined Systolic and Diastolic CHF, decompensated Volume optimization to be achieved via Dialysis as tolerated Toxic metabolic encephalopathy, likely from UTI Lactic Acidosis 2/2 UTI Hx of DVT s/p IVC Filter On Coumadin at baseline Hx of Obstructive Uropathy s/p Left Nephrostomy Tube Patient has tube exchanged q6-8 weeks--last changed 3 weeks ago We will cont to monitor Nutrition NG tube for temporary tube feedings Hypertension Antihypertensives held 2/2 Sepsis Hypothyroidism Cont Levothyroxine DVT Prophylaxis on Coumadin Code Status: DNR/DNI, Poor Prognosis, patient remains obtunded. Poor prognosis discussed at length with the patient's at the bedside again this afternoon. The patient's white blood cell count, clinical condition, and respiratory status has been worsening since 05/10/18 when an NG tube was placed. Respiratory suctioning has revealed a copious amount of thick/brown sputum suggestive of aspiration of tube feeding. Repeat chest x-ray today shows bilateral lower lobe infiltrates. We once again reiterated our concern about the patient aspirating, which he was at a high risk for given his obtunded clinical status. Upon discussing this with his , she has suggested that we slow down his tube feeding to a trickle. We have explained to her that IV fluids and TPN feeding will be a challenge/contraindication given the patient's end-stage renal disease on hemodialysis, combined diastolic and systolic congestive heart failure, and hypoalbuminemia all while the patient is in a decompensated fluid overloaded state. She has verbalized understanding of the same and would like to continue with the current care plan of IV antibiotics and close monitoring. I did also speak to the patient's son Giancarlo Lantigua via telephone ([phone]) this evening and provided him with an update about the patient's condition. He has stated that he is aware of his father's condition and is regularly keeping communication with his mom. He has verbalized understanding of the gravity of Mr. Lantigua's illness and prognosis, and agrees with the plan of care at this time. All questions have been answered to the patient's family's satisfaction. VS, I&O, 24H, Fishbone Vital Signs/I&O Vital Signs Date Time Temp Pulse Resp B/P (MAP) Pulse Ox O2 Delivery O2 Flow Rate FiO2 05/13/18 15:40 3.0 05/13/18 08:44 82/52 (62) 05/13/18 08:00 99.4 47 26 97 I&O- Last 24 Hours up to 6 AM 05/13/18 06:00 Intake Total 740 ml Output Total 1010 ml Balance -270 ml Laboratory Data 24H LABS Laboratory Tests 2 05/12/18 17:16: Bedside Glucose (Misc Panel) 125H 05/13/18 06:00: Anion Gap 13, Glomerular Filtration Rate 15.9L, Blood Urea Nitrogen 86H, Creatinine 3.86H, Sodium Level 141, Potassium Level 4.9, Chloride Level 103, Carbon Dioxide Level 25, Calcium Level 9.4, Magnesium Level 2.3 05/13/18 06:17: Prothrombin Time 20.4H, Prothromb Time International Ratio 1.71 05/13/18 08:56: Nucleated Red Blood Cells % (auto) 0.4H, Immature Platelet Fraction 13.9H 05/13/18 11:44: Bedside Glucose (Misc Panel) 124H CBC/BMP Laboratory Tests 05/13/18 06:00 Calcium Level 9.4 05/13/18 08:56 Red Blood Count 3.70 L, Mean Corpuscular Volume 97.6 H, Mean Corpuscular Hemoglobin 32.4, Mean Corpuscular Hemoglobin Concent 33.2, Red Cell Distribution Width 17.4 H Microbiology Microbiology 05/13/18 Blood Culture, Received Pending 05/06/18 Blood Culture - Final, Complete NO GROWTH AFTER 5 DAYS 05/06/18 Blood Culture - Final, Complete NO GROWTH AFTER 5 DAYS 05/05/18 Blood Culture - Final, Complete Escherichia Coli 05/05/18 Blood Culture - Final, Complete Escherichia Coli 05/13/18 Urine Culture, Received Pending 05/13/18 Urine Culture, Received Pending 05/05/18 Urine Culture - Final, Complete Pseudomonas Aeruginosa Enterococcus Faecalis YAEL BARROSO MD May 13, 2018 16:53
[2018-05-13 20:00] VITALS: BP 77/49
[2018-05-13] MEDS: ACETAMINOPHEN 650 MG SUPP PR PRN (20:17)
[2018-05-14] VITALS: BP 73/54
[2018-05-14 04:00] VITALS: BP 76/48
[2018-05-14] MEDS: SLF 3 ML SYR IV SCH ×3 (06:00→22:00)
[2018-05-14 08:00] VITALS: BP 75/55
[2018-05-14] MEDS: FLUTICASONE PROP 0.05% NASAL SPRAY 16 GM (FLONASE) SCH (08:29)
[2018-05-14] MEDS: LEVOTHYROXINE 100 MCG (0.1MG) VIAL IV SCH (08:29)
[2018-05-14] MEDS: MIDODRINE 5 MG TAB PO SCH ×3 (08:29→16:38)
[2018-05-14] MEDS: BRIMONIDINE 0.15% OPHTH SOLN 5 ML OS SCH ×2 (08:29→22:11)
[2018-05-14] MEDS: ACETAMINOPHEN 650 MG SUPP PR PRN (10:41)
--- NOTE | 2018-05-14 11:20 | IPN ---
DATE OF SERVICE: 05/13/2018 SUBJECTIVE: Adrian is seen and examined this morning at the bedside. Remains obtunded, lethargic, receiving Nepro tube feeds. Blood pressures remain very soft. He continues on three times a day midodrine. His white count is rising. There is a concern that he is aspirating his tube feeds. He tolerated dialysis yesterday with midodrine and albumin support. We were able to remove 1 liter of fluid. VITAL SIGNS: Temperature 99.7, pulse 95, respiratory rate 28, blood pressure 91/62, saturating 94% on 3 liters nasal cannula. Weight in the bed scale today is 54.6 kg. GENERAL: Patient is seen lying in bed, very elderly and frail-appearing male, obtunded, nonverbal, eyes closed, does not follow any commands, is not restless, and does not appear to be in any distress. There is bitemporal wasting. There is nasal cannula. There is nasogastric tube. Neck veins are not elevated. HEART: Sounds S1, S2. There is pedal edema. Otherwise, there is no other edema in the peripheries or the dependent area. CHEST EXAM: Anterior auscultation only. Diminished breath sounds and significant tachypnea. Respiratory rate about 25 breaths per minute, shallow. ABDOMEN: Is soft. There are bowel sounds. GENITOURINARY: There is a nephrostomy tube present on the left. His extremities show pedal edema. LABS: White count 21, hemoglobin 12, platelets 67. Sodium 141, potassium 4.9, magnesium 2.3. MICROBIOLOGY: Culture from the bladder (straight cath), left nephrostomy and repeat blood cultures are pending. IMAGING: Chest x-ray 05/13/2018 showed left-sided consolidation with possible effusion, a new right lower lobe infiltrate. INPATIENT MEDICATIONS: He has been started on vancomycin 1 gram IV times one dose. His Coumadin was adjusted per the primary team. Remainder of medications are unchanged from prior. PROBLEMS: 1. Sepsis. Recent Escherichia (E) coli bacteremia with repeat cultures from 05/06/2018 negative. Prior urine culture is noted, and repeat urine culture from the bladder and from the nephrostomy have been ordered. He has been on meropenem but his white count is rising. He remains obtunded. There is ongoing hypotension. There is concern that he is aspirating from the tube feeds. Chest x-ray as noted. Recommend infectious disease's input. Repeat blood cultures have also been sent, and vancomycin has also been added for further coverage. 2. Hypotension secondary to sepsis and combined congestive heart failure. He is on maximal midodrine 10 mg by mouth three times a day. His antimicrobials have been broadened. It is difficult to dialyze him with this hemodynamic instability. This has been discussed with his . 3. End-stage renal disease. On hemodialysis on a Friday, , Friday schedule. He is presently being dialyzed with use of both midodrine and albumin for hemodynamic support. We have not had to take much fluid off of him because of his minimal oral intake during this admission. His weights are downtrending. His current respiratory issues may likely be related to aspiration pneumonia. His volume status seems fairly reasonable.
[2018-05-14 11:27] LABS: HEMATOCRIT 35.9 % (42.0-52.0); HEMOGLOBIN 11.9 g/dl (13.5-17.5); MEAN CORPUSCULAR HEMOGLOBIN 32.2 pg (27.0-33.0); MEAN CORPUSCULAR HGB CONC 33.1 g/dl (32.0-36.5); MEAN CORPUSCULAR VOLUME 97.3 fl (80.0-96.0); RED BLOOD COUNT 3.69 10^6/uL (4.30-6.10); WHITE BLOOD COUNT 26.6 10^3/uL (4.0-10.0)
[2018-05-14 11:28] LABS: PLATELET COUNT, AUTOMATED 79 10^3/uL (150-450)
[2018-05-14 11:53] LABS: CALCIUM LEVEL 9.2 MG/DL (8.8-10.2); CREATININE FOR GFR 4.94 MG/DL (0.70-1.30); GLOMERULAR FILTRATION RATE 11.9 (>35); POTASSIUM SERUM 5.7 MEQ/L (3.5-5.1)
[2018-05-14 12:00] VITALS: BP 94/64
[2018-05-14 15:25] VITALS: BP 86/55
[2018-05-14] MEDS: WARFARIN SOD 2 MG TAB NG SCH (16:38)
[2018-05-14] MEDS: MEROPENEM INJ 500 MG in APPROPRIATE DILUENT 1 EA IV SCH (16:38)
[2018-05-14] MEDS: VANCOMYCIN HCL 750 MG, VIAL MATE ADAPTER 1 EACH in D5W 250 ML IV SCH (17:25)
[2018-05-14] MEDS: **VANCO AFTER HD** MISC XX SCH (17:25)
[2018-05-14 20:00] VITALS: BP 99/65
[2018-05-15] VITALS: BP 84/55
[2018-05-15] MEDS: ACETAMINOPHEN 650 MG SUPP PR PRN ×2 (00:40→17:33)
--- NOTE | 2018-05-15 00:50 | IPNPDOC ---
Subjective Date Seen The patient was seen on 05/14/18. Subjective Chief Complaint/HPI No change in status overnight, continues to be hypotensive, WBC has increased. Has been having large residuals in Ng tube so feeding was held in the morning. Discussed with again about his poor prognosis and explained he will probably not survive this hospitalization. For his blood pressure discussed the option about central line and levophed however she wants to try the oral midodrine for now. Going for HD today. Objective Physical Examination General Exam: Positive: Other (patient obtunded, nonverbal, eyes shut, and not following any commands.) ENT Exam: Positive: Other ENT (bitemporal wasting noted, +NG Tube) Neck Exam: Positive: Supple Chest Exam: Positive: Rales (bibasilar), Diminished, Other (patient's ribs noted to be prominent on chest wall) Heart Exam: Positive: Rate Normal, Normal S1, Normal S2 Abdomen Exam: Positive: BS Hypoactive, Soft; Negative: Tenderness Male Exam: Negative: Normal Genital Exam (Left sided nephrostomy tube+) Extremity Exam: Positive: Swelling (2+ pitting edema in the lower extremities); Negative: Tenderness Assessment /Plan Assessment Sepsis 2/2 Urinary Tract Infection, Aspiration Pneumonia Patient with a history of recurrent UTI's with cultures previously growing Pseudomonas Blood Cultures positive x 2 for E. Coli from 05/05, repeat cultures from 05/06 negative Urine Culture notable for pseudomonas Cont Meropenem and vancomycin Patient noted to have a copious amount of thick brown sputum on respiratory suctioning. This is likely aspiration of his tube feeding. Chest x-ray notable for bilateral lower lobe infiltrates which would explain the patient's worsening white blood cell count, and respiratory status. Repeat blood culture order set sent Vancomycin added for empiric coverage Septicemia 2/2 UTI, resolved Blood Cultures from 05/05 positive for E. Coli Repeat Blood Cultures from 05/06 negative Cont Meropenem, Vanco Repeat Blood culture set ordered Malnourishment 2/2 Inability to tolerate PO Diet due to Alteration in Mental Status--s/p NG Tube placement s/p NG tube placement 05/10/18. An extensive discussion was held at the bedside with the patient's and friends/family at the bedside regarding concern for the patient aspirating tube feeding as he is not protecting his airway and has already had copious amounts of secretions suctioned from his mouth/upper airway by nursing/respiratory staff. The patient's has acknowledged and verbalized understanding of this risk, and has requested that we proceed with NG tube plac ement. Nepro tube feeding started with increase in rate depending on tolerability Septic vs Cardiogenic Shock, resolved The patient has been weaned off of the Dobutamine drip. ESRD on HD Nephrology on board for dialysis Combined Systolic and Diastolic CHF, decompensated Volume optimization to be achieved via Dialysis as tolerated Toxic metabolic encephalopathy, likely from UTI Lactic Acidosis 2/2 UTI Hx of DVT s/p IVC Filter On Coumadin at baseline Hx of Obstructive Uropathy s/p Left Nephrostomy Tube Patient has tube exchanged q6-8 weeks--last changed 3 weeks ago We will cont to monitor Nutrition NG tube for temporary tube feedings Hypertension Antihypertensives held 2/2 Sepsis Hypothyroidism Cont Levothyroxine DVT Prophylaxis on Coumadin Code Status: DNR/DNI, Poor Prognosis, patient remains obtunded. Poor prognosis discussed at length with the patient's at the bedside again this afternoon. The patient's white blood cell count, clinical condition, and respiratory status has been worsening since 05/10/18 when an NG tube was placed. Respiratory suctioning has revealed a copious amount of thick/brown sputum suggestive of aspiration of tube feeding. Repeat chest x-ray today shows bilateral lower lobe infiltrates. We once again reiterated our concern about the patient aspirating, which he was at a high risk for given his obtunded clinical status. Upon discussing this with his , she has suggested that we slow down his tube feeding to a trickle. We have explained to her that IV fluids and TPN feeding will be a challenge/contraindication given the patient's end-stage renal disease on hemodialysis, combined diastolic and systolic congestive heart failure, and hypoalbuminemia all while the patient is in a decompensated fluid overloaded state. She has verbalized understanding of the same and would like to continue with the current care plan of IV antibiotics and close monitoring. I did also speak to the patient's son Giancarlo Lantigua via telephone ([phone]) this evening and provided him with an update about the patient's condition. He has stated that he is aware of his father's condition and is regularly keeping communication with his mom. He has verbalized understanding of the gravity of Mr. Lantigua's illness and prognosis, and agrees with the plan of care at this time. All questions have been answered to the patient's family's satisfaction. Plan/VTE VTE Prophylaxis Ordered?: Yes VS, I&O, 24H, Fishbone Vital Signs/I&O Vital Signs Date Time Temp Pulse Resp B/P (MAP) Pulse Ox O2 Delivery O2 Flow Rate FiO2 05/14/18 20:00 98.1 94 40 99/65 (76) 98 3.0 I&O- Last 24 Hours up to 6 AM 05/15/18 06:00 Intake Total 0 ml Output Total 0 ml Balance 0 ml Laboratory Data 24H LABS Laboratory Tests 2 05/14/18 04:59: Random Vancomycin Level 13.9 05/14/18 05:31: Bedside Glucose (Misc Panel) 99 05/14/18 11:10: Nucleated Red Blood Cells % (auto) 0.2H, Immature Platelet Fraction 14.1H, Anion Gap 13, Glomerular Filtration Rate 11.9L, Blood Urea Nitrogen 124H, Creatinine 4.94H, Sodium Level 138, Potassium Level 5.7H, Chloride Level 103, Carbon Dioxide Level 22, Calcium Level 9.2 05/14/18 18:26: Bedside Glucose (Misc Panel) 86 CBC/BMP Laboratory Tests 05/14/18 11:10 Red Blood Count 3.69 L, Mean Corpuscular Volume 97.3 H, Mean Corpuscular Hemoglobin 32.2, Mean Corpuscular Hemoglobin Concent 33.1, Red Cell Distribution Width 18.0 H, Calcium Level 9.2 Microbiology Microbiology 05/13/18 Blood Culture - Preliminary, Resulted No growth after 24 hours . All specim... 05/06/18 Blood Culture - Final, Complete NO GROWTH AFTER 5 DAYS 05/06/18 Blood Culture - Final, Complete NO GROWTH AFTER 5 DAYS 05/05/18 Blood Culture - Final, Complete Escherichia Coli 05/05/18 Blood Culture - Final, Complete Escherichia Coli 05/13/18 Urine Culture, Received Pending 05/13/18 Urine Culture, Received Pending 05/05/18 Urine Culture - Final, Complete Pseudomonas Aeruginosa Enterococcus Faecalis MARCELA JIMENEZ MD May 15, 2018 00:50
[2018-05-15 04:00] VITALS: BP 91/63
[2018-05-15] MEDS: SLF 3 ML SYR IV SCH ×3 (06:00→22:00)
[2018-05-15 08:00] VITALS: BP 97/66
[2018-05-15] MEDS: LEVOTHYROXINE 100 MCG (0.1MG) VIAL IV SCH (08:47)
[2018-05-15] MEDS: MIDODRINE 5 MG TAB PO SCH ×3 (08:47→17:16)
[2018-05-15] MEDS: BRIMONIDINE 0.15% OPHTH SOLN 5 ML OS SCH ×2 (08:48→22:00)
[2018-05-15] MEDS: FLUTICASONE PROP 0.05% NASAL SPRAY 16 GM (FLONASE) SCH (08:48)
[2018-05-15 11:44] LABS: HEMATOCRIT 39.9 % (42.0-52.0); HEMOGLOBIN 13.2 g/dl (13.5-17.5); MEAN CORPUSCULAR HEMOGLOBIN 32.5 pg (27.0-33.0); MEAN CORPUSCULAR HGB CONC 33.1 g/dl (32.0-36.5); MEAN CORPUSCULAR VOLUME 98.3 fl (80.0-96.0); PLATELET COUNT, AUTOMATED 101 10^3/uL (150-450); RED BLOOD COUNT 4.06 10^6/uL (4.30-6.10); WHITE BLOOD COUNT 25.1 10^3/uL (4.0-10.0)
[2018-05-15 12:00] VITALS: BP 90/58
[2018-05-15 12:11] LABS: C REACTIVE PROTEIN QUANTITATIV 13.2 MG/DL (0.00-0.30); CALCIUM LEVEL 9.5 MG/DL (8.8-10.2); CREATININE FOR GFR 4.8 MG/DL (0.70-1.30); GLOMERULAR FILTRATION RATE 12.3 (>35); POTASSIUM SERUM 5.8 MEQ/L (3.5-5.1)
[2018-05-15 12:22] LABS: ERYTHROCYTE SEDIMENTATION RATE 2 mm/hr (0-30)
[2018-05-15 16:45] VITALS: BP 88/64
[2018-05-15] MEDS: MEROPENEM INJ 500 MG in APPROPRIATE DILUENT 1 EA IV SCH (17:15)
[2018-05-15] MEDS: WARFARIN SOD 2 MG TAB NG SCH (17:16)
[2018-05-15] MEDS: **VANCO AFTER HD** MISC XX SCH (19:00)
[2018-05-15] MEDS: VANCOMYCIN HCL 750 MG, VIAL MATE ADAPTER 1 EACH in D5W 250 ML IV SCH (19:09)
[2018-05-15 20:00] VITALS: BP 102/69
[2018-05-16] VITALS: BP 128/91
[2018-05-16] MEDS: MORPHINE 4 MG/ML 1ML VIAL/SYRINGE (J2270) IV PRN ×6 (01:58→21:58)
[2018-05-16 02:00] VITALS: BP 106/50
[2018-05-16 04:00] VITALS: BP 92/48
[2018-05-16] MEDS: SLF 3 ML SYR IV SCH ×2 (06:00→14:00)
[2018-05-16 07:56] VITALS: BP 80/42
[2018-05-16] MEDS: MIDODRINE 5 MG TAB PO SCH (07:58)
[2018-05-16] MEDS: LEVOTHYROXINE 100 MCG (0.1MG) VIAL IV SCH (07:58)
[2018-05-16] MEDS: FLUTICASONE PROP 0.05% NASAL SPRAY 16 GM (FLONASE) SCH (07:59)
--- NOTE | 2018-05-16 07:59 | IPN ---
DATE: 05/14/2018 SUBJECTIVE: Patient seen and examined this morning at the bedside and again later in the afternoon on hemodialysis. I had a lengthy discussion with his over the phone regarding his poor clinical status, ongoing hypotension, and sepsis, and I am concerned that even an extremely gentle hemodialysis prescription may be too much for him to withstand from hemodynamic point of view. Mrs. Doty made very clear that she would like to continue with the full measures at this time. His Nepro tube feeds are on hold for concern of aspiration. He continues on three times a day midodrine. He is lethargic and not communicative at all, only moans to verbal or tactile stimulus. His white count continues to rise. We are dialyzing him today only for clearance, not for fluid removal. VITAL SIGNS: Temperature 98.3, pulse 89, respiratory rate 30, blood pressure 86/55, saturating 96% on 3 liters nasal cannula. Intake yesterday was 1.3 liters. Goal dialysis fluid removal today is nothing. General: The patient is at the bedside and again in the hemodialysis unit, very elderly and very frail appearing male, lethargic, obtunded, nonverbal, does not follow any commands. He is tachypneic. He only moans to verbal and tactile stimulus. There is bitemporal wasting. There is bilateral hearing aids. There is nasal cannula. There is a nasogastric tube. Neck veins are flat. Heart sounds: S1, S2. There is pedal edema, otherwise there is no edema in the peripheries or in the dependent area. Chest: There is tachypnea, shallow respirations, diminished at the bases. Respiratory rate is about 25 per minute. Abdomen: Soft. There are bowel sounds. He does not grimace to abdominal palpation. Genitourinary: There is a nephrostomy tube on the left. Neurologic: He is neither awake nor alert, nor oriented. LABORATORY: White count 26, hemoglobin 11.9, platelets 79. Sodium 138, potassium 5.7, calcium 9.2. INPATIENT MEDICATIONS: Reviewed by myself. He continues on both meropenem and vancomycin. Remainder of medications are unchanged from prior. PROBLEMS: 1. Sepsis with ongoing hypotension. Patient was started on midodrine during this admission and continues on 10 mg three times a day. He is being treated for Escherichia (E) coli bacteremia and E coli urinary tract infection with repeat blood cultures from 05/06/2018 remaining negative. Urine cultures have also been sent from the nephrostomy, and we also did a straight catheterization of his bladder and sent another urine specimen for culture. He has been on meropenem and vancomycin, but his white count continues to rise. He remains obtunded. He remains hypotensive. There is a concern that he is aspirating from his tube feeds. 2. End-stage renal disease. On hemodialysis. I am very concerned about dialyzing him with the significant hypotension and sepsis. I have discussed this at length with his regarding that he may not be able to withstand even a very gentle dialysis prescription given the hypotension. She wishes to continue with dialysis treatments. He is hyperkalemic today. He is being dialyzed in a very gentle fashion for potassium correction, and we are not attempting to remove any fluid today. There is actually no need to remove fluid. He is being dialyzed for clearance only. 3. Combined systolic and diastolic congestive heart failure. Volume status is presently acceptable. He has not really had much intake over the course of this admission. His weights have down trended substantially. He is requiring nasal cannula, but that is likely more a reflection of aspiration pneumonia rather than pulmonary edema. Given the significant hypotension and sepsis, he is being dialyzed for clearance today and not for fluid removal. He continues on midodrine three times a day. 4. Hyperkalemia. To be addressed with dialysis.
[2018-05-16] MEDS: BRIMONIDINE 0.15% OPHTH SOLN 5 ML OS SCH (08:01)
[2018-05-16] MEDS: SCOPOLAMINE 1MG TRANSDERMAL PATCH TOP SCH (08:01)
--- NOTE | 2018-05-16 08:18 | IPN ---
DATE OF SERVICE: 05/15/2018 SUBJECTIVE: Patient seen and examined this morning at the bedside and again in the afternoon in the hemodialysis unit receiving treatment. His blood pressures today are improved as compared to yesterday. Systolic is actually mainly in the 90s. He has his eyes open during my visit and squeezes on command with his left hand, but did not otherwise verbalize nor reliably follow any commands. His white count has plateaued. VITAL SIGNS: Temperature 97.3, pulse 97, respiratory rate 32, blood pressure 90/58, saturating 99% on 3 liters nasal cannula. Intake and output yesterday were not recorded. Weight on the bed scale today is 53 kg. GENERAL: Patient is seen lying in bed, very elderly and frail-appearing male, eyes are open, but he is not tracking nor alert. He moans and groans, squeezed with his left hand, but did not otherwise follow any commands. Bitemporal wasting. There is nasal cannula. There is hearing aids. There is a nasogastric tube. Neck veins are not elevated. CARDIAC: Heart sounds S1, S2. There is pedal edema. Otherwise, there is no other edema in the peripheries nor in the dependent area. RESPIRATORY: There is anterior auscultation only with tachypnea and shallow respirations, and diminished breath sounds at the bases. ABDOMEN: Soft. There are occasional bowel sounds. LABS: Sodium 139, potassium 5.8, bicarbonate 22, BUN 114, creatinine 4.8, CRP 13, white count 25, hemoglobin 13. MICROBIOLOGY: Repeat blood culture May 13 with no growth for 48 hours. INPATIENT MEDICATIONS: Reviewed by myself and no change from prior. PROBLEMS: 1. Sepsis. Recent E. coli bacteremia and E. coli urinary tract infection, repeat blood culture son May 06 and May 13 for surveillance have been negative. Prior urine culture is noted as well with repeat urine culture from the bladder and from the nephrostomy still pending. He has been on meropenem and also on renally dosed vancomycin. His white count has plateaued today. I would say that there has been a very mild improvement in his blood pressure curve. Systolic is now mostly in the 90s whereas before it was mostly in the 70s and 80s. He remains obtunded. There is concern that he is aspirating from the tube feed. His CRP was significantly elevated but very curiously his ESR was not. His sepsis and hypotension complicate dialysis. 2. Hypotension secondary to sepsis and combined systolic and diastolic congestive heart failure. He continues on midodrine 10 mg by mouth three times a day. His on broad spectrum antimicrobials, vancomycin and meropenem. His white count has plateaued. It has been difficult to dialyze him efficiently this past week given the hemodynamic instability. We have been using midodrine and albumin as well. This has been previously discussed with his who wishes to continue with dialysis at present. 3. End-stage renal disease with hyperkalemia. Yesterday he had a very gentle dialysis prescription in view of his significant hypotension yesterday, hence he continues to be hyperkalemic today. I am dialyzing him again. His systolic today is mostly in the 90s. We will do a 3 hour treatment for further clearance. We have not had to take to much fluid off of him because of his minimal oral intake. His weights are downtrending. His current respiratory issues are more likely related to aspiration pneumonia rather than any sort of fluid overload.
[2018-05-16] MEDS ORDERED: LORazepam 2 MG/ML VIAL (J2060) IV PRN (10:30)
--- NOTE | 2018-05-16 13:21 | IPN ---
DATE OF VISIT: 05/16/2018 Mr. Lantigua is seen this morning on his bedside. He remains poorly responsive. His is present in the room. Apparently he was admitted with urosepsis a few days ago and has been treated. He remains persistently hypotensive, particularly during dialysis. The patient has been receiving feeds through NG tube. He is also receiving antibiotics for possible aspiration pneumonia and a community acquired pneumonia. He has not been able to eat or swallow. PHYSICAL EXAMINATION: Temperature 97.4 degrees Fahrenheit, heart rate 103 per minute and respiratory rate 32 per minute. Blood pressure is 80/42 mmHg and oxygen saturation 94% on 3 liters of oxygen. Nursing staff reports that earlier his blood pressure was in 60s. The patient has Justin-Colvin breathing and respiratory rate goes as high as 32 per minute. His head is atraumatic. Neck is supple and JVD is not appreciated. Abdomen is soft and bowel sounds are present. Extremities have generalized edema on upper extremities and also some thighs. Neurologically he is obtunded and not able to answer any questions. His labs could not be drawn this morning despite multiple efforts made by the ammunition assembly i laborer. I discussed with the patient's on the bedside about his prognosis and persistent hypotension. The patient had continued to receive dialysis up until recently, however, now it has become very difficult to dialyze him due to persistent hypotension. I have discussed with the patient's at length and explained to her about his prognosis and inability to dialyze. The patient has extremely poor prognosis and no chance for surviving without dialysis. The patient's understands and she decided to make him comfort measures only. I offered her my support for her decision and we will try to keep the patient comfortable.
--- NOTE | 2018-05-16 13:59 | IPNPDOC ---
Subjective Date Seen The patient was seen on 05/16/18. Subjective Chief Complaint/HPI Pateint only moaning and groaning intermittently. Did open his eyes a little. Objective Physical Examination General Exam: Positive: Other (uncomfortable, moaning, nonverbal, opens eyes sometimes, and not following any commands.) ENT Exam: Positive: Other ENT (bitemporal wasting noted, +NG Tube) Neck Exam: Positive: Supple Chest Exam: Positive: Rales (bibasilar), Diminished, Other (patient's ribs noted to be prominent on chest wall) Heart Exam: Positive: Rate Normal, Normal S1, Normal S2 Abdomen Exam: Positive: BS Hypoactive, Soft; Negative: Tenderness Male Exam: Negative: Normal Genital Exam (Left sided nephrostomy tube+) Extremity Exam: Positive: Swelling (2+ pitting edema in the lower extremities); Negative: Tenderness Assessment /Plan Assessment Comfort measures only patient placed on ativan and morphine for comfort NG tube removed as seemed to be bothering him No further HD as per nephrology No labs, xrays or vitals Sepsis and septic shock 2/2 reccurent Urinary Tract Infection from nephrostomy tube related infection and Aspiration Pneumonia DID not respond to 8 days of meropenem and vancomycin. Gram negative bacteremia this had cleared. with E coli from UTI Malnourishment 2/2 Inability to tolerate PO Diet due to Alteration in Mental Status--s/p NG Tube placement s/p NG tube placement 05/10/18. An extensive discussion was held at the bedside with the patient's and friends/family at the bedside regarding concern for the patient aspirating tube feeding as he is not protecting his airway and has already had copious amounts of secretions suctioned from his mouth/upper airway by nursing/respiratory staff. The patient's has acknowledged and verbalized understanding of this risk, and has requested that we proceed with NG tube plac ement. Nepro tube feeding started with increase in rate depending on tolerability Initially had cardiogenic shock which had resolved with dobutamine gtt then became septic from aspiration and UTI with septic shock with no response to antibiotics. ESRD on HD Pateint in shock no further HD possible for this patient. Combined Systolic and Diastolic CHF Toxic metabolic encephalopathy from septic shock Hx of DVT s/p IVC Filter stop coumadin Hx of Obstructive Uropathy s/p Left Nephrostomy Tube Hypothyroidism Code Status: DNR/DNI, INHALATION THERAPIST. Plan/VTE VTE Prophylaxis Ordered?: Yes VS, I&O, 24H, Fishbone Vital Signs/I&O Vital Signs Date Time Temp Pulse Resp B/P (MAP) Pulse Ox O2 Delivery O2 Flow Rate FiO2 05/16/18 08:00 3.0 05/16/18 07:56 97.4 103 32 80/42 (55) 94 I&O- Last 24 Hours up to 6 AM 05/16/18 06:00 Intake Total 320 ml Output Total 30 ml Balance 290 ml Laboratory Data 24H LABS Laboratory Tests 2 05/15/18 17:31: Bedside Glucose (Misc Panel) 76L 05/16/18 06:48: Bedside Glucose (Misc Panel) 102 Microbiology Microbiology 05/13/18 Blood Culture - Preliminary, Resulted No Growth after 72 hours. All specime... 05/06/18 Blood Culture - Final, Complete NO GROWTH AFTER 5 DAYS 05/06/18 Blood Culture - Final, Complete NO GROWTH AFTER 5 DAYS 05/13/18 Urine Culture - Preliminary, Resulted Pseudomonas Aeruginosa Enterococcus Faecalis Enterococcus Faecium 05/13/18 Urine Culture - Final, Complete Pseudomonas Aeruginosa MARCELA JIMENEZ MD May 16, 2018 13:59
--- NOTE | 2018-05-18 00:45 | DS.PDOC ---
Discharge Summary General Date of Admission May 05, 2018 at 17:05 Date of Discharge 05/17/18 Attending Physician: MARCELA JIMENEZ MD Specialist/Consultants Involve: JOHANNA MOLINA MD @ Specialist/Consultants Involve Dr Anand Discharge Summary PROCEDURES PERFORMED DURING STAY: [None]. DISCHARGE DIAGNOSES: Septic shock Recurrent urinary tract infection related to nephrostomy tube Gram negative bacteremia Aspiration pneumonia Toxic metabolic encephalopathy due to shock ESRD Chronic hypotension Systolic and diastolic heart failure with Cardiogenic shock Malnutrition Obstructive uropathy with left nephrostomy tube DVT in the past Old CVA. COMPLICATIONS/CHIEF COMPLAINT: Hypotension,Uti. HISTORY OF PRESENT ILLNESS: See History and physical HOSPITAL COURSE: This is an 88-year-old gentleman with past medical history of severe systolic ( EF25%) and diastolic heart failure , chronic hypotension, end-stage renal disease since 2013, secondary to obstructive uropathy from prostate enlargement, history of lower extremity deep vein thrombosis (DVT), status post inferior vena cava (IVC) filter, on chronic anticoagulation with Coumadin, history of hypothyroidism, history of BPH, prior cerebrovascularaccident (CVA), mostly nonambulatory uses WC can only stand and pivot at baseline, he is verbal at baseline and usually oriented to place and person at baseline who presented with chief complaint of hypotension at dialysis. Per patient's and granddaughter, who are at bedside, patient has not been himself the last few days and appeared a little bit more weak. He went to his usual dialysis today, and it was unable to be completed secondary to low blood pressures, and he was sent t the ED. In the Ed pateint was confused , mostly nonverbal. His blood pressure was low in 80s/50s. He was admitted for Shock septic vs cardiogenic. He was found to have urinary tract infection with gram nevgative bacterimia.which was successfully treated however pateint again developed URinary tract infection with Pseudomonas. Patient's encephalopathy did not improve much and he was having dysphagia and aspirations. He subsequently developed also aspiration pneumonia. His advance directives stated no Feed tube. So pateint was given a trial of NG tube. But the patient continued to aspirate. Initially his shock responded to dobutamine so we concluded that it was probably cardio genic shock. With the reccurent UTi and aspiration pneumonia he again went into shock. This time it was felt to be septic shock. He was on meropenem and vancomycin without any response. Central line and vasopressors were discussed but the did not want a central line wanted to continue only the midodrine. There was no improvement in blood pressure and so he could not be dialyzed. Dialysis was stopped. At that point GASOLINE TESTER was discussed with the pateint's and she agreed to keep him comfortable and let him pass natura lly. Yadira was made GASOLINE TESTER on 05/16/18 and subsequently he on 05/17/18. Septic shock 2/2 recurrent Urinary Tract Infection from nephrostomy tube related infection and Aspiration Pneumonia DID not respond to 8 days of meropenem and vancomycin. Gram negative bacteremia this had cleared. with E coli from UTI Malnourishment 2/2 Inability to tolerate PO Diet due to Alteration in Mental Status--s/p NG Tube placement with recurrent episodes of aspirations Initially had cardiogenic shock which had resolved with dobutamine gtt then became septic from aspiration and UTI with septic shock with no response to antibiotics. ESRD on HD Patient in shock no further HD possible for this patient. Combined Systolic and Diastolic CHF Toxic metabolic encephalopathy from septic shock Hx of DVT s/p IVC Filter Hx of Obstructive Uropathy s/p Left Nephrostomy Tube Hypothyroidism DISPOSITION: 20 . TIME SPENT ON DISCHARGE: Greater than 45 minutes. Vital Signs/I&Os Vital Signs Date Time Temp Pulse Resp B/P (MAP) Pulse Ox O2 Delivery O2 Flow Rate FiO2 05/16/18 15:44 32 94 3.0 05/16/18 07:56 97.4 103 80/42 (55) Microbiology Microbiology 05/13/18 Blood Culture - Preliminary, Resulted No Growth after 72 hours. All specime... 05/13/18 Urine Culture - Final, Complete Pseudomonas Aeruginosa Enterococcus Faecalis Enterococcus Faecium 05/13/18 Urine Culture - Final, Complete Pseudomonas Aeruginosa Discharge Medications Scheduled (Daisy-Kristofer) 1 Tab Tab, 1 TAB PO QPM, (Reported) Amlodipine Besylate (Amlodipine Besylate) 5 Mg Tab, 5 MG PO DAILY, (Reported) Brimonidine Tartrate 0.15% (Alphagan P) 0.15 % Katrin, 1 DROP OS BID, (Reported) Captopril (Captopril) 25 Mg Tab, 25 MG PO BID, (Reported) Cyanocobalamin (Vitamin B12) 3,000 Mcg/Ml Erick, 3,000 MCG SL DAILY, (Reported) Escitalopram Oxalate (Lexapro) 5 Mg Tab, 5 MG PO DAILY, (Reported) Finasteride (Proscar) 5 Mg Tab, 5 MG PO QPM, (Reported) Fluticasone Propionate (Flonase Allergy Relief) 50 Mcg/Act Spr, 2 SPR NA DAILY, (Reported) Isosorbide Mononitrate (Isosorbide Mononitrate ER) 30 Mg Tab, 30 MG PO QPM, (Reported) Levothyroxine Sodium (Synthroid) 100 Mcg Tab, 100 MCG PO QAM, (Reported) Neomycin/Polymyx/Bacitr (Neosporin Original 3.5-400-5000) 1 Oin Oin, 1 APLCT TOP DAILY, (Reported) Pantoprazole Sodium (Pantoprazole Sodium) 40 Mg Tab, 40 MG PO DAILY, (Reported) Sevelamer Carbonate (Renvela) 800 Mg Tab, 800 MG PO BID, (Reported) WITH MEALS Spironolactone (Spironolactone) 25 Mg Tab, 25 MG PO BID, (Reported) Tamsulosin Hydrochloride (Flomax) 0.4 Mg Cap, 0.4 MG PO QPM, (Reported) Warfarin Sod (Coumadin) 5 Mg Tab, 2.5 MG PO QPM, (Reported) Scheduled PRN Hydralazine HCl (Hydralazine HCl) 50 Mg Tab, 50 MG PO DAILY PRN for HIGH BLOOD PRESSURE, (Reported) FOR BP OVER 140 Nitroglycerin (Nitroglycerin) 0.4 Mg Sub, 0.4 MG SL Q5MP PRN for CHEST PAIN, (Reported) Allergies Coded Allergies: Penicillins (Verified Allergy, Unknown, 05/13/18) MARCELA JIMENEZ MD May 18, 2018 00:45
== END 2018-05-17 00:30 | disposition expired | DRG 871 ==
LOC: EDBD 14:51 → M ED 14:51 → M ED INP 17:05 → M ICU 18:04 → M PCU 05-10 14:30
PROVIDERS: ADMIT Internal Medicine; ATTEND Internal Medicine Nephrology
DX: A41.51 Sepsis due to Escherichia coli [E. coli] (principal); G92 Toxic encephalopathy; N18.6 End stage renal disease; R65.21 Severe sepsis with septic shock; I50.41 Acute combined systolic (congestive) and diastolic (congestive) heart failure; J69.0 Pneumonitis due to inhalation of food and vomit; N39.0 Urinary tract infection, site not specified; E46 Unspecified protein-calorie malnutrition; I13.2 Hypertensive heart and chronic kidney disease with heart failure and with stage 5 chronic kidney disease, or end stage renal disease; R57.0 Cardiogenic shock; Z86.718 Personal history of other venous thrombosis and embolism; Z79.01 Long term (current) use of anticoagulants; E03.9 Hypothyroidism, unspecified; N40.0 Benign prostatic hyperplasia without lower urinary tract symptoms; Z79.899 Other long term (current) drug therapy; Z88.0 Allergy status to penicillin; Z66 Do not resuscitate; Z86.73 Personal history of transient ischemic attack (TIA), and cerebral infarction without residual deficits; D63.1 Anemia in chronic kidney disease